=== PATIENT | male | born 1980 | race Caucasian/White ===

== ENCOUNTER 2020-11-28 10:39 | Emergency (ER) | payer OTHER, SELFPAY ==
[2020-11-28 10:43] VITALS: BP 146/72; PULSE 82; RESP 16; TEMP 37.1; O2SAT 96; BMI 31.1
--- NOTE | 2020-11-28 11:23 | ED_ITS ---
HPI - Wound/Laceration General Chief Complaint: Wound/Laceration Stated Complaint: leg wound Time Seen by Provider: 11/28/20 11:02 Source: patient Mode of arrival: ambulatory Limitations: no limitations History of Present Illness HPI narrative: 40-year-old male with a past medical history of eczema presenting to the ED with complaints of rug burn to left lower leg and toe that happened 1 week ago after he fell down a few steps and has had a wound that has surrounding redness and is tender to the touch he reports he thinks it is infected and needs antibiotics. Denies head injury or loss of consciousness or any other symptoms complaints or concerns at this time. Onset (ago): week(s) (One week ago) Location: other (Left lower leg) Place: home Patient tetanus UTD: Yes Context: accidental Associated symptoms: pain Related Data Previous Rx's Medication Instructions Recorded cephalexin 500 mg PO BID 10 Days #20 cap 11/28/20 doxycycline monohydrate 100 mg PO BID 10 Days #20 cap 11/28/20 Allergies Allergy/AdvReac Type Severity Reaction Status Date / Time caffeine [CAFFEINE] Allergy Severe INTESTINAL Verified 08/21/20 07:17 BLEEDING fish oil [FISH OIL] Allergy Mild RASH Verified 08/21/20 07:17 fish Allergy Unknown Unknown Verified 08/21/20 07:17 fluoxetine Allergy Unknown Unknown Verified 08/21/20 07:17 milk Allergy Unknown Unknown Verified 08/21/20 07:17 peanut [PEANUT] Allergy Unknown UNKNOWN Verified 08/21/20 07:17 Peanut Butter Flavor Allergy Unknown Unknown Verified 08/21/20 07:17 egg [EGGS] AdvReac Unknown STOMACH Unverified 05/31/20 14:56 CRAMPING Stress test dye allergy Allergy Unknown Rash Uncoded 03/08/20 00:00 Review of Systems Review of Systems: Constitutional : No Fever, No Chills, Cardiovascular : No Chest Pain, No SOB Respiratory : No Dyspnea Gastrointestinal : No abdominal pain Musculoskeletal : No Joint Swelling Skin : positive skin laceration/surrounding erythema, No Foreign bodies, No rash Neuro : No Weakness, No Numbness/tingling Psych : No SI/HI/thoughts of self injury Yes all other systems are reviewed and are negative PMFSH Past Medical History Attestation statement: The following information was validated with the patient. Surgical History History of umbilical hernia repair Family History Family History Father Prostate cancer CVD (cardiovascular disease) Hypertension Mother Ovarian cancer Breast cancer Hypertension Maternal Grandmother Cancer Paternal Grandmother Diabetes Paternal Aunt Diabetes Paternal Uncle Diabetes Son Asthma Heart problem Family/Other FH: mental illness Substance abuse Social History Social History Alcohol intake: never Smoked in Last 30 Days: No Use of substances other than those prescribed or required for medical reasons: No Substance Use Type: Marijuana Advance Directives: No Advance Directives Information Provided: No Physical Exam Vital Signs: Vital Signs: Last Vital Signs Temp 98.7 F 11/28/20 10:43 Pulse 82 11/28/20 10:43 Resp 16 11/28/20 10:43 BP 146/72 H 11/28/20 10:43 Pulse Ox 96 11/28/20 10:43 Body Mass Index 31.1 vital signs have been reviewed as normal and appeared to be correct. Blood pressure normal. Heart rate normal. Respiration rate normal. Temperature normal. Oxygen saturation normal. Appearance: Alert. Oriented X3. No acute distress. Head: Normal external exam. Normocephalic. Atraumatic. No Crouch signs noted. No raccoon eyes noted Eyes: PERRLA. EOMI. Conjunctiva and sclera normal. Eyelids normal. ENT: EAC normal. TM's Normal. Pharynx normal. Uvula midline. Moist mucous membranes. No trismus noted. No drooling noted. No muffled voice noted. Neck: Normal inspection. Neck supple. FROM. No adenopathy. Thyroid Normal. No meningeal signs. No neck mass noted. CVS: Normal heart rate and rhythm. Heart sound normal. No murmurs noted. Pulses normal throughout. Respiratory: No respiratory distress. Painless inspiration. Breath sounds normal. No wheezes/rales/rhonchi noted. Chest nontender. No accessory muscle usage noted or decreased air movement noted. Back: Full range of motion noted. Skin: 2 x 2 wound to left lower lateral aspect leg with mild surrounding erythema, tender to palpation and warm to touch consistent with wound with cellulitis infection. No fluctuance/induration/foreign bodies or streaking noted. Otherwise the rest of the Skin is warm and dry. Normal skin color. Normal skin turgor. No rashes noted. Extremities: No lower extremity edema. Extremities exhibit normal range of motion. Extremities nontender. Neuro: Oriented X 3. No motor deficit. No sensory deficit. Reflexes normal. Course Course Course Narrative: 40-year-old male presenting with a wound to his left lower extremity consistent with cellulitis. No abscess noted. No streaking. Nontoxic appearance. I offered the patient x-ray of his left ankle although he refused. Patient up-to-date on tetanus. Will DC home with antibiotics and symptomatic treatment along instructions to return if any new or worsening symptoms to follow up with primary care provider. Patient understands agrees with this plan. MDM - Wound/Laceration Medical Records Attestation: I reviewed the patient's medical records. Discharge Plan Discharge Clinical Impression: Wound cellulitis Patient Disposition: Home, Self-Care Instructions: Cellulitis (ED), Acute Wounds (ED) Prescriptions: New doxycycline monohydrate 100 mg capsule 100 mg PO BID 10 Days Qty: 20 RF: 0 cephalexin 500 mg capsule 500 mg PO BID 10 Days Qty: 20 RF: 0 Referrals: Po,Clau Kennedy MD [Primary Care Provider] - 2 days Print Language: Ukrainian
== END 2020-11-28 11:52 | disposition home or self-care (01) ==
PROVIDERS: Emergency Provider Internal Medicine; PCP Internal Medicine
DX: L03.116 Cellulitis of left lower limb (principal); S89.92XD Unspecified injury of left lower leg, subsequent encounter; W01.0XXD Fall on same level from slipping, tripping and stumbling without subsequent striking against object, subsequent encounter; F12.90 Cannabis use, unspecified, uncomplicated
CPT/HCPCS: 99282; 99284

== ENCOUNTER 2020-12-20 12:27 | Emergency (ER) | payer OTHER, SELFPAY ==
--- NOTE | ~2020-12-20 | US_ITS ---
EXAMINATION: US VENOUS ULTRASOUND WITH DOPPLER LOWER EXTREMITY, LEFT CLINICAL INFORMATION: Swelling COMPARISON: None TECHNIQUE: Ultrasound of the deep veins is performed from the hip to the calf with compression sonography and color and pulse Doppler assessment. Spectral analysis with color-flow imaging is performed. FINDINGS: There is normal venous compression and respiratory variation and augmented flow. The visualized common femoral vein, superficial femoral vein, profunda femoral vein, popliteal vein, and the trifurcation region shows no evidence of deep venous thrombosis. There is no significant popliteal fossa cyst. If the patient's symptoms persist, followup ultrasound in 5 days 7 days might be of value to exclude proximal propagation from a non-visualized calf vein. US/US venous duplex LE LT IMPRESSION: No DVT demonstrated in the left lower extremity.
--- NOTE | ~2020-12-20 | XR_ITS ---
EXAMINATION: XR TIBIA AND FIBULA, LEFT CLINICAL INFORMATION: Soft tissue wound lower leg COMPARISON: Radiographs left knee 10/03/2014 TECHNIQUE: AP x2 and lateral x2 views of the left lower leg are obtained for a total of 4 views. FINDINGS: There is no acute or healing fracture, dislocation, or destructive process. The bony mineralization is normal. There is no periostitis or focal osseous lucency. No gas tracking in the soft tissues. Again, there is a chronic short metallic pin foreign body overlying the proximal anterior lateral leg anterior to the fibular neck. Distally, there is benign-appearing macrolobulated ossification in the inter-osseous region arising from distal lateral aspect tibial shaft. This merges with the distal lateral tibial cortex and may be related to an old osteochondroma or remote inter-osseous injury. There is small corticated ossicle just distal to lateral malleolus. There is mild spurring from the medial and lateral talar neck and mid dorsal talus. Posterior calcaneal spur. There is spurring quadriceps insertion patella. Hoffa's fat pad appears normal. XR/XR tibia fibula LT 2V IMPRESSION: 1. No gas tracking in soft tissues. 2. No acute or healing fracture, dislocation, or destructive process. 3. Benign-appearing wavy ossification distal lateral tibia, possibly related to a benign osteochondroma or remote inter-osseous injury.
[2020-12-20 12:51] VITALS: BP 130/82; PULSE 75; RESP 16; TEMP 36.8; O2SAT 97; BMI 30.5
--- NOTE | 2020-12-20 13:24 | ED.WOUNDLAC ---
HPI - Wound/Laceration General Chief Complaint: Wound/Laceration Stated Complaint: L LEG PAIN Time Seen by Provider: 12/20/20 13:23 History of Present Illness HPI narrative: Patient complains of a small wound to left lower leg which is worsening over past several days, he had recently been treated with antibiotic for cellulitis of that area and the surrounding redness has gotten better but the wound is not improving, he denies any joint pains denies any fever chills Related Data Previous Rx's Medication Instructions Recorded cephalexin 500 mg PO BID 10 Days #20 cap 11/28/20 doxycycline monohydrate 100 mg PO BID 10 Days #20 cap 11/28/20 cephalexin 500 mg PO QID 7 Days #28 tab 12/20/20 doxycycline hyclate 100 mg PO BID 7 Days #14 cap 12/20/20 Allergies Allergy/AdvReac Type Severity Reaction Status Date / Time caffeine [CAFFEINE] Allergy Severe INTESTINAL Verified 12/20/20 12:51 BLEEDING fish oil [FISH OIL] Allergy Mild RASH Verified 12/20/20 12:51 fish Allergy Unknown Unknown Verified 12/20/20 12:51 fluoxetine Allergy Unknown Unknown Verified 12/20/20 12:51 milk Allergy Unknown Unknown Verified 12/20/20 12:51 peanut [PEANUT] Allergy Unknown UNKNOWN Verified 12/20/20 12:51 Peanut Butter Flavor Allergy Unknown Unknown Verified 12/20/20 12:51 Iodinated Contrast Media Allergy Hives Verified 12/20/20 13:08 egg [EGGS] AdvReac Unknown STOMACH Verified 12/20/20 12:51 CRAMPING Stress test dye allergy Allergy Unknown Rash Uncoded 12/20/20 12:51 Review of Systems Review of Systems: Positive for wound and pain to left lower leg Negatives are no fever no chills no dizziness no weakness no joint pain no headache no neck pain no back pain Yes all other systems are reviewed and are negative PMFSH Past Medical History Source: nursing notes reviewed Surgical History History of umbilical hernia repair Family History Family History Father Prostate cancer CVD (cardiovascular disease) Hypertension Mother Ovarian cancer Breast cancer Hypertension Maternal Grandmother Cancer Paternal Grandmother Diabetes Paternal Aunt Diabetes Paternal Uncle Diabetes Son Asthma Heart problem Family/Other FH: mental illness Substance abuse Social History Social History Alcohol intake: never Substance Use Type: Marijuana Advance Directives: No Advance Directives Information Provided: No Physical Exam Vital Signs: Vital Signs: Last Vital Signs Temp 98.2 F 12/20/20 12:51 Pulse 75 12/20/20 12:51 Resp 16 12/20/20 12:51 BP 130/82 12/20/20 12:51 Pulse Ox 97 12/20/20 12:51 Body Mass Index 30.5 General appearance no acute distress, comfortable relaxed and cooperative Head is normocephalic atraumatic Neck is supple Respiratory no distress Left lower leg lateral aspect has a wound that is approximately 2 cm x 2 cm with minimal surrounding erythema it is tender it is not swollen Left ankle and left knee have full range of motion no swelling, gait is normal Skin no other rash Neuro no focal deficit Course Course Course Narrative: Patient is restarted on antibiotics and is given referral to wound clinic which I called and they said they could see him MDM - Wound/Laceration Lab Data Labs: Lab Results 12/20/20 Range/Units 13:31 POC Glucose 146 H (60-115) mg/dL Discharge Plan Discharge Clinical Impression: Cellulitis Patient Disposition: Home, Self-Care Additional Instructions: Follow with Wound Clinic for the wound on her left leg phone number [phone] Return to the ER any time for spreading redness, worse pain and swelling, fever, any sign of any spreading or worsening infection or any concerns If not improving and you cannot follow-up with Wound Clinic return to the ER in 3 days for a recheck Prescriptions: New doxycycline hyclate 100 mg capsule 100 mg PO BID 7 Days Qty: 14 RF: 0 cephalexin 500 mg tablet 500 mg PO QID 7 Days Qty: 28 RF: 0 No Action doxycycline monohydrate 100 mg capsule 100 mg PO BID 10 Days Qty: 20 RF: 0 cephalexin 500 mg capsule 500 mg PO BID 10 Days Qty: 20 RF: 0 Referrals: Yisel Canas PA [Physician Dialysis Chief Equipment Technician] - 2 days (Left lower leg wound) Interventions: ED Discharge Assessment Last Done: 12/20/20 15:47 Discharge Date/Time: 12/20/20 15:48
[2020-12-20 13:35] LABS: Glucose, Whole Blood 146 mg/dL (60-115)
[2020-12-20] MEDS: cephALEXin 500 MG CAPSULE PO (13:40)
== END 2020-12-20 15:48 | disposition home or self-care (01) ==
PROVIDERS: Emergency Provider Emergency Medicine; PCP Internal Medicine
DX: L03.116 Cellulitis of left lower limb (principal); M79.605 Pain in left leg; F12.90 Cannabis use, unspecified, uncomplicated
CPT/HCPCS: 73590; 82947; 93971; 99283

== ENCOUNTER 2022-06-02 09:51 | Outpatient (REF) | payer OTHER, SELFPAY ==
[2022-06-02 10:18] LABS: MANUAL DIFF FLAG NO
[2022-06-02 10:58] LABS: Basophils Absolute Auto 0.1 X10*3/uL (0.0-0.2); Basophils Percent Auto 0.9 % (0-2); Eosinophils Absolute Auto 0.6 X10*3/uL (0.0-0.4); Eosinophils Percent Auto 7.7 % (0-4); Hematocrit 41.5 % (42.0-52.0); Hemoglobin 13.4 g/dl (14.0-18.0); Imm Gran Abs Auto 0.03 X10*3/uL (0.00-0.03); Imm Gran Pct Auto 0.4 % (0.0-0.4); Immature Retic Fraction 17.8 % (2.3-13.4); Lymphocytes Absolute Auto 2.4 X10*3/uL (1.2-4.9); Mean Corpuscular HGB Conc 32.3 g/dl (31.0-36.0); Mean Corpuscular Hemoglobin 26.6 pg (27.0-33.0); Mean Corpuscular Volume 82.5 fL (80.0-98.0); Mean Platelet Volume 9.9 fL (9.4-12.4); Monocytes Absolute Auto 0.7 X10*3/uL (0.1-1.2); Monocytes Percent Auto 8.8 % (2-11); Neutrophils Absolute Auto 3.9 x10*3/uL (2.0-8.3); Neutrophils Percent Auto 51.2 % (45-73); Platelet Count 303 X10*3/uL (160-400); Red Blood Count 5.03 X10*6/uL (4.60-5.80); Red Cell Distribution Width 15.6 % (11.0-16.0); Retic HGB Equivalent 30.9 pg (30.0-35.0); Reticulocyte Percent 1.3 % (0.5-1.8); Reticulocytes Absolute 0.063 X10*6/uL (0.026-0.095); White Blood Count 7.6 X10*3/uL (4.8-10.8)
[2022-06-02 11:43] LABS: Alanine Aminotransferase 32 U/L (0-40); Albumin Level 4.2 g/dL (3.5-5.0); Alkaline Phosphatase 69 U/L (39-117); Anion Gap 15 (12-20); Aspartate Amino Transferase 16 U/L (5-37); Bilirubin Total 0.2 mg/dL (0.0-1.0); Blood Urea Nitrogen 13 mg/dL (9-16); Calcium 9.2 mg/dL (8.4-10.2); Carbon Dioxide 22 mmol/L (22-29); Chloride 106 mmol/L (96-108); Cholesterol 128 mg/dL; Estimated Glomerular Filt Rate > 60; Glucose Random 106 mg/dL (60-115); HDL Cholesterol 30 mg/dL; Iron 42 mcg/dL (45-160); LDL Cholesterol Calculated 79 mg/dl; Percent Iron Saturation 13 % (15-50); Potassium 4.3 mmol/L (3.3-5.1); Sodium 139 mmol/L (135-145); Total Iron Binding Capacity 335 mcg/dL (228-428); Total Protein 7.1 g/dL (6.5-8.0); Triglycerides 96 mg/dL; Unsaturated Iron Binding 293 ug/dL
[2022-06-02 11:46] LABS: Estimated Average Glucose 123 mg/dL; Hemoglobin A1c % 5.9 %
[2022-06-02 11:47] LABS: Ferritin 195 ng/mL (20-250); Free T4 (Free Thyroxine) 1.01 ng/dL (0.71-1.85); Thyroid Stimulating Hormone 0.89 uIU/mL (0.32-4.0)
[2022-06-02 11:59] LABS: Folate 8.2 ng/mL (> or = 4.0); Vitamin B12 282 pg/mL (200-900)
[2022-06-02 14:44] LABS: Appearance Urine Clear; Color Urine Yellow; Glucose Urine UA Negative (Negative); Leukocyte Esterase Urine Negative (Negative); Nitrite Urine Negative (Negative); Specific Gravity - Urine 1.015 (1.005-1.025); Urine Blood Negative (Negative); Urine Ketones Negative (Negative); Urine Protein Negative (Neg-Trace)
[2022-06-02 14:46] LABS: Bacteria Urine None Seen (None Seen); Hyaline Casts Urine 0-2 /LPF (0-2); RBC Urine 0-2 /HPF (0-2); Squamous Epithelial Cell Urine 0-2 /HPF (0-2); WBC Urine 0-5 /HPF (0-5)
[2022-06-07 10:53] LABS: Testosterone, Free 46.7 pg/mL (35.0-155.0); Testosterone, Total 270 ng/dL (250-1100)
== END 2022-06-02 09:52 | disposition home or self-care (01) ==
LOC: HO.LAB 09:51
PROVIDERS: PCP Internal Medicine; Visit Provider Internal Medicine
DX: D64.9 Anemia, unspecified (principal); E66.9 Obesity, unspecified; E78.00 Pure hypercholesterolemia, unspecified; R35.0 Frequency of micturition
CPT/HCPCS: 36415; 80053; 80061; 81001; 82607; 82728; 82746; 83036; 83540; 84146; 84402; 84403; 84439; 84443; 85025; 85045

== ENCOUNTER 2022-07-02 08:56 | Emergency (ER) | payer OTHER, SELFPAY ==
--- NOTE | ~2022-07-02 | CT_ITS ---
EXAMINATION: CT ABDOMEN AND PELVIS WITHOUT CONTRAST CLINICAL INFORMATION: Right flank and lower back pain. COMPARISON: CT scan of the abdomen and pelvis dated 06/27/2010. TECHNIQUE: Multidetector volumetric imaging was performed from the superior aspect of the liver through the pubic symphysis. Sagittal and coronal reformatted images were obtained on the technologist's workstation. Lack of intravenous and oral contrast limits visceral evaluation. This CT examination was performed using dose optimization techniques as appropriate, variously including the following: *Automated exposure control *Adjustment of mA and/or kV according to patient size (this includes techniques or standardized protocols for targeted exams where dose is matched to indication/reason for exam; i.e. extremities or head) *Use of iterative reconstruction technique DLP: 946 mGy-cm FINDINGS: LUNG BASES: The visualized lung bases are unremarkable. LIVER, GALLBLADDER, AND BILIARY TREE: No hepatic abnormality. Small gallstones without surrounding abnormality. PANCREAS: Unremarkable. SPLEEN: Unremarkable. ADRENAL GLANDS: Unremarkable. KIDNEYS AND URETERS: The kidneys are normal in size, shape, and attenuation. No hydronephrosis, hydroureter, or calculi seen. No perinephric stranding. BLADDER: Unremarkable. GASTROINTESTINAL TRACT: The stomach, small bowel and appendix are unremarkable. The colon shows mild scattered diverticulosis without surrounding abnormality. The rectum is unremarkable. ABDOMINAL WALL: Small fat-containing umbilical hernia. LYMPH NODES: No lymphadenopathy. VASCULAR: Unremarkable. PELVIC VISCERA: Unremarkable. OSSEOUS STRUCTURES: Mild to moderate multilevel degenerative changes most pronounced at L4-5 and L5-S1. No acute/suspicious abnormality. CT/CT abdomen pelvis wo IV con IMPRESSION: 1. No acute intra-abdominal/pelvic abnormality. No nephrolithiasis or hydroureteronephrosis. 2. Scattered mild colonic diverticulosis without evidence for acute diverticulitis. 3. Small fat-containing umbilical hernia without associated abnormality. 4. Mild to moderate multilevel degenerative changes in the thoracolumbar spine.
--- NOTE | ~2022-07-02 | US_ITS ---
EXAMINATION: US ABDOMEN LIMITED CLINICAL INFORMATION: Right-sided flank pain, history of gallstones. COMPARISON: CT scan of the abdomen and pelvis performed today, abdominal ultrasound dated 09/05/2013. TECHNIQUE: Real-time imaging of the right upper quadrant abdominal viscera. FINDINGS: PANCREAS: Visualized portions unremarkable. LIVER: Diffuse increased hepatic echotexture with focal fatty sparing adjacent to the gallbladder. GALLBLADDER: Multiple echogenic gallstones are seen. One of the largest measures up to 1.7 cm. No mural thickening or pericholecystic fluid. Color Doppler showed no abnormal vascular flow. COMMON BILE DUCT: Normal in caliber measuring 0.5 cm in diameter. FREE FLUID: None. US/US abdomen limited IMPRESSION: 1. Hepatic steatosis with focal fatty sparing adjacent to the gallbladder. 2. Cholelithiasis without evidence for acute cholecystitis.
[2022-07-02 10:00] VITALS: BP 140/91; PULSE 52; RESP 20; TEMP 36.3; O2SAT 99; BMI 29.7
[2022-07-02 10:21] LABS: MANUAL DIFF FLAG NO
[2022-07-02 10:23] LABS: Basophils Percent Auto 0.6 % (0-2); Eosinophils Absolute Auto 0.5 X10*3/uL (0.0-0.4); Eosinophils Percent Auto 8.8 % (0-4); Hematocrit 45.3 % (42.0-52.0); Hemoglobin 14.3 g/dl (14.0-18.0); Imm Gran Abs Auto 0.01 X10*3/uL (0.00-0.03); Imm Gran Pct Auto 0.2 % (0.0-0.4); Lymphocytes Absolute Auto 1.9 X10*3/uL (1.2-4.9); Lymphocytes Percent Auto 34.3 % (20-40); Mean Corpuscular HGB Conc 31.6 g/dl (31.0-36.0); Mean Corpuscular Volume 82.2 fL (80.0-98.0); Mean Platelet Volume 9.3 fL (9.4-12.4); Monocytes Absolute Auto 0.4 X10*3/uL (0.1-1.2); Monocytes Percent Auto 7.9 % (2-11); Neutrophils Absolute Auto 2.6 x10*3/uL (2.0-8.3); Neutrophils Percent Auto 48.2 % (45-73); Platelet Count 298 X10*3/uL (160-400); Red Blood Count 5.51 X10*6/uL (4.60-5.80); White Blood Count 5.4 X10*3/uL (4.8-10.8)
[2022-07-02 10:38] LABS: Alanine Aminotransferase 20 U/L (0-40); Albumin Level 4.5 g/dL (3.5-5.0); Alkaline Phosphatase 66 U/L (39-117); Anion Gap 16 (12-20); Aspartate Amino Transferase 15 U/L (5-37); Bilirubin Direct < 0.2 mg/dL (0.0-0.5); Bilirubin Total 0.2 mg/dL (0.0-1.0); Blood Urea Nitrogen 13 mg/dL (9-16); Calcium 9.3 mg/dL (8.4-10.2); Carbon Dioxide 24 mmol/L (22-29); Chloride 106 mmol/L (96-108); Creatinine Clr Calc Pharmacy 179.7; Estimated Glomerular Filt Rate > 60; Glucose Random 109 mg/dL (60-115); Potassium 4.8 mmol/L (3.3-5.1); Sodium 141 mmol/L (135-145); Total Protein 7.6 g/dL (6.5-8.0)
[2022-07-02 12:54] LABS: Lipase 21 U/L (8-78)
[2022-07-02 13:44] LABS: Appearance Urine Clear; Color Urine Yellow; Glucose Urine UA Negative (Negative); Leukocyte Esterase Urine Negative (Negative); Nitrite Urine Negative (Negative); PH 7.5 (5.0-9.0); Urine Blood Negative (Negative); Urine Ketones Negative (Negative); Urine Protein Negative (Neg-Trace)
[2022-07-02 13:59] LABS: Amylase 65 U/L (28-100); Lactate Dehydrogenase 195 U/L (118-273)
--- NOTE | 2022-07-02 14:00 | ED_ITS ---
HPI - Back Pain/Injury General Chief Complaint: Abdominal Pain Stated Complaint: gall bladder pain Time Seen by Provider: 07/02/22 13:38 Source: patient Mode of arrival: ambulatory Limitations: no limitations History of Present Illness HPI Narrative: Patient is a 42-year-old male with a past medical history significant for a lower lumbar fracture presenting with severe right-sided back pain. Patient reports that his pain started about 2 months ago, at rest the pain is ?nagging? and a 5/10; when moving/palpating the area the pain is sharp and increases to a 10/10. The pain is radiates laterally. Patient also endorses itchy eyes, nausea and, yellowing of the eyes, polydipsia, polyuria, constipation. The p atient denies any history of trauma, fever, dysuria, abdominal pain, vomiting, saddle anesthesia and loss of bladder or bowel function The patient states that he has been taking baby aspirin for pain as needed. Of note the patient states that he went to his PCP 2 months ago when the pain started. He states that he had a workup for kidney stone, UTI which came back negative. The patient also reports he is had a few episodes of ?palpitations?, his last episode was last week, he denies any palpitations at this time. MD elicited complaint: back pain Pertinent past history: prior back pain and back surgery Onset (ago): month(s) (2) Timing: constant Severity: moderate (At baseline) Pain scale (0-10): 5 Similar Symptoms Previously: No Quality: sharp (When palpating) and dull (At baseline) Location: lumbar spine (Upper), thoracic spine (Lower) and right lower back ( between the ribs ) Radiation: other (Lateral) Exacerbating factors: movement and other (Palpate a) Relieving factors: medication (Aspirin - minimal relief) Associated symptoms: fatigue and increased urinary frequency Treatments prior to arrival: ASA Work related injury: No Related Data Previous Rx's Medication Instructions Recorded ascorbate calcium (vitamin C) 500 500 mg PO DAILY #30 tabs 06/03/22 mg tablet cetirizine 10 mg tablet 10 mg PO DAILY PRN allergy 06/03/22 symptoms 90 days #90 tabs cyanocobalamin (vitamin B-12) 1,000 mcg PO DAILY #30 caps 06/03/22 1,000 mcg capsule ferrous sulfate 325 mg (65 mg 325 mg PO DAILY #30 tabs 06/03/22 iron) tablet (FeroSul) triamcinolone acetonide 0.5 % 1 appl topical DAILY #45 grams 06/03/22 topical cream cyclobenzaprine 10 mg tablet 10 mg PO Q8H Muscle spasm #14 tabs 07/02/22 naproxen 500 mg tablet 500 mg PO BID PRN pain #14 tabs 07/02/22 Allergies Allergy/AdvReac Type Severity Reaction Status Date / Time caffeine [CAFFEINE] Allergy Severe INTESTINAL Verified 07/02/22 10:00 BLEEDING fish oil [FISH OIL] Allergy Mild RASH Verified 07/02/22 10:00 fish Allergy Unknown Unknown Verified 07/02/22 10:00 fluoxetine Allergy Unknown Unknown Verified 07/02/22 10:00 milk Allergy Unknown Unknown Verified 07/02/22 10:00 peanut [PEANUT] Allergy Unknown UNKNOWN Verified 07/02/22 10:00 Peanut Butter Flavor Allergy Unknown Unknown Verified 07/02/22 10:00 Iodinated Contrast Media Allergy Hives Verified 07/02/22 10:00 egg [EGGS] AdvReac Unknown STOMACH Verified 07/02/22 10:00 CRAMPING Stress test dye allergy Allergy Unknown Rash Uncoded 07/02/22 10:00 Review of Systems Review of Systems: Constitutional : No trauma, No Weight loss, No Fever, No Chills, + lethargy ENT/Mouth : No Hearing loss, + Ear Pain, No Nasal Congestion, No Sinus Pain, No Hoarseness, No sore throat, No Rhinorrhea, No Swallowing Difficulty, + ?itchy eyes + yellowing of the eyes Cardiovascular : No Chest Pain, No SOB, + palpitations Respiratory : No Cough, No Dyspnea Gastrointestinal : + Nausea, No Vomiting, No Diarrhea, No abdominal Pain, No Hematochezia, No Melena Genitourinary : No Dysuria, No Urinary Frequency, No Hematuria, No Urinary or Bowel Incontinence/retention, Musculoskeletal : + Back pain, No neck pain, No joint stiffness, No joint swelling Skin : No Skin Lesions, No rash or signs of infection Neuro : No Weakness, + lateral radiation, No Numbness, No Paresthesias, No headache, no loss of bowel or bladder incontinence, no saddle anesthesia Endocrine: + polyuria, + polydipsia Denies history of IV drug usage. Yes all other systems are reviewed and are negative [facility] Past Medical History Attestation statement: The following information was validated with the patient. Source: old records reviewed and nursing notes reviewed Medical History Allergic rhinitis Chronic low back pain Generalized anxiety disorder Surgical History History of umbilical hernia repair Family History Family History Father Prostate cancer CVD (cardiovascular disease) Hypertension Mother Ovarian cancer Breast cancer Hypertension Maternal Grandmother Cancer Vulvar cancer Paternal Grandmother Diabetes Paternal Aunt Diabetes Paternal Uncle Diabetes Son Asthma Heart problem Family/Other FH: mental illness Substance abuse Social History Social History Housing: Apartment Alcohol intake: current Patient Tobacco Use Status: Never used Tobacco e-Cigarette/Vaping Use: Never Used Second Hand Smoke Exposure: No Substance Use Type: Marijuana Advance Directives: No Current occupational status: employed Cognitive needs: No Hearing needs: No Vision needs: Yes Physical Exam Vital Signs: Vital Signs: Last Vital Signs Temp 97.3 F 07/02/22 10:00 Pulse 52 07/02/22 10:00 Resp 20 07/02/22 10:00 BP 140/91 H 07/02/22 10:00 Pulse Ox 99 07/02/22 10:00 O2 Del Method 07/02/22 10:00 BMI result Body Mass Index 29.7 vital signs have been reviewed as normal and appeared to be correct. Blood pressure hypertensive. Heart rate normal. Respiration rate normal. Temperature normal. Oxygen saturation normal. Appearance: Alert. Oriented X3. No acute distress. Head: Normal external exam. Normocephalic. Atraumatic. Eyes: PERRLA. EOMI. Conjunctiva and sclera slightly yellow-tinged. Eyelids normal. ENT: EAC normal. TM's Normal. Pharynx normal. Uvula midline. Moist mucous membranes. No trismus noted. No drooling noted. No muffled voice noted. Neck: Normal inspection. Neck supple. FROM. No adenopathy. No meningeal signs. No neck mass noted. CVS: Normal heart rate and rhythm. Heart sound normal. No murmurs noted. Pulses normal throughout. Respiratory: No respiratory distress. Painless inspiration. Breath sounds normal. No wheezes/rales/rhonchi noted. Chest nontender. No accessory muscle usage noted or decreased air movement noted. Abdomen: Soft and nontender. No distention noted. No visible injury noted. Umbilical hernia noted, able to manipulate back into abdomen. Back: No CVA tenderness. Full range of motion noted. No obvious deformities, or edema. Mild para-spinal muscular tenderness from lumbar region to coccyx. Severe pain to palpation of right stairs spinous muscles from approximately T10 to L2. Full ROM in back and lower extremities. 5/5 strength hip extension/flexion, abduction, adduction. Mild Lumbar pain with hip flexion against resistance. Straight leg raise test negative on right; Straight leg raise test negative on left; Reflexes normal ankle and knee bilaterally; EHL motor strength normal bilaterally. No rashes/lesion/induration/fluctuance or signs infection noted. Skin: Skin warm and dry. Normal skin color. Normal skin turgor. No rashes/lesions/lacerations noted. Extremities: No lower extremity edema. Extremities exhibit normal range of motion. Extremities nontender. Neuro: Oriented X 3. No motor deficit. No sensory deficit. Reflexes normal. Patient has a normal steady gait. Course Course Course Narrative: 2pm - patient is a 42-year-old male with a past medical history lower lumbar fracture status post surgery presenting for severe mid back pain. Physical exam significant for severe point tenderness at of right paraspinous muscles around T12 to L2, pain radiates laterally, slight tint/yellowing of eyes bilaterally. No red flag black pain. Patient is hypertensive on exam. This is likely due to pain. Pain is likely due to a soft tissue injury. CT of abdomen ordered to rule out fracture. Ultrasound ordered to rule out cholangitis, choledocholithiasis, cholecystitis. TSH ordered to rule out thyroid disorders. 12 lead EKG used to rule out a-fib for complaint of palpitations. Plan: - Labs: CBC, CMP, UA, TSH, magnesium, amylase, lipase, lactate dehydrogenase, liver panel - ultrasound of abdomen - CT of abdomen without IV contrast - 12 lead EKG Reevaluation(s) Reevaluation #1: Labs: CBC: MCH (26.0); MPV (9.3), Eos % (8.8); Eos # (0.5). All other lab values are within normal limits Chem: All lab values within normal limits TSH: 0.53 Lipate: 21; Amylase 65 - these lab values are within normal limits; unlikely pancreatic issue UA: All values are within normal limits Diagnostic tests: EKG: Sinus bradycardia CT Abdomen/ Pelvis: Mild to moderate multilevel degenerative changes in the thoracolumbar spine. Time: 15:14 MDM - Back Pain/Injury Medical Records Attestation: I reviewed the patient's medical records. Lab Data Attestation: I reviewed the patient's lab results. Result diagrams: 07/02/22 10:16 07/02/22 10:16 Labs: Lab Results 07/02/22 07/02/22 07/02/22 Range/Units 10:16 10:16 13:29 WBC 5.4 (4.8-10.8) X10*3/uL RBC 5.51 (4.60-5.80) X10*6/uL Hgb 14.3 (14.0-18.0) g/dl Hct 45.3 (42.0-52.0) % MCV 82.2 (80.0-98.0) fL MCH 26.0 L (27.0-33.0) pg MCHC 31.6 (31.0-36.0) g/dl RDW 15.0 (11.0-16.0) % Plt Count 298 (160-400) X10*3/uL MPV 9.3 L (9.4-12.4) fL Immature Gran % (Auto) 0.2 (0.0-0.4) % Neut % (Auto) 48.2 (45-73) % Lymph % (Auto) 34.3 (20-40) % [place] % (Auto) 7.9 (2-11) % Eos % (Auto) 8.8 H (0-4) % Baso % (Auto) 0.6 (0-2) % Lymph # (Auto) 1.9 (1.2-4.9) X10*3/uL [place] # (Auto) 0.4 (0.1-1.2) X10*3/uL Eos # (Auto) 0.5 H (0.0-0.4) X10*3/uL Baso # (Auto) 0.0 (0.0-0.2) X10*3/uL Abs Immat Gran (auto) 0.01 (0.00-0.03) X10*3/uL Absolute Neuts (auto) 2.6 (2.0-8.3) x10*3/uL Absolute Nucleated RBC 0.000 (0.0-0.012) X10*3/uL Nucleated RBC % (auto) 0.0 (0.0-0.2) /100WBC Sodium 141 (135-145) mmol/L Potassium 4.8 (3.3-5.1) mmol/L Chloride 106 (96-108) mmol/L Carbon Dioxide 24 (22-29) mmol/L Anion Gap 16 (12-20) BUN 13 (9-16) mg/dL Creatinine 0.82 (0.5-1.4) mg/dL Estim Creat Clear Calc 179.7 Estimated GFR > 60 Random Glucose 109 (60-115) mg/dL Calcium 9.3 (8.4-10.2) mg/dL Magnesium 2.0 (1.6-2.6) mg/dL Total Bilirubin 0.2 (0.0-1.0) mg/dL Direct Bilirubin < 0.2 (0.0-0.5) mg/dL AST 15 (5-37) U/L ALT 20 (0-40) U/L Alkaline Phosphatase 66 (39-117) U/L Lactate Dehydrogenase 195 (118-273) U/L Total Protein 7.6 (6.5-8.0) g/dL Albumin 4.5 (3.5-5.0) g/dL Amylase 65 (28-100) U/L Lipase 21 (8-78) U/L TSH 0.53 (0.32-4.0) uIU/mL Urine Color Yellow Urine Appearance Clear Urine pH 7.5 (5.0-9.0) Ur Specific [place] 1.020 (1.005-1.025) Urine Protein Negative (Neg-Trace) mg/dL Urine Glucose (UA) Negative (Negative) mg/dL Urine Ketones Negative (Negative) mg/dL Urine Blood Negative (Negative) Urine Nitrite Negative (Negative) Ur Leukocyte Esterase Negative (Negative) Imaging Data Abdomen/ Pelvis CT: Attestation: I personally reviewed and interpreted this imaging study as follows: Radiologist's impression: FINDINGS: LUNG BASES: The visualized lung bases are unremarkable.? LIVER, GALLBLADDER, AND BILIARY TREE: No hepatic abnormality. Small gallstones without surrounding abnormality. PANCREAS: Unremarkable.? SPLEEN: Unremarkable.? ADRENAL GLANDS: Unremarkable.? KIDNEYS AND URETERS: The kidneys are normal in size, shape, and attenuation. No hydronephrosis, hydroureter, or calculi seen. No perinephric stranding. ? BLADDER: Unremarkable.? GASTROINTESTINAL TRACT: The stomach, small bowel and appendix are unremarkable. The colon shows mild scattered diverticulosis without surrounding abnormality. The rectum is unremarkable.? ABDOMINAL WALL: Small fat-containing umbilical hernia.? LYMPH NODES: No lymphadenopathy. VASCULAR: Unremarkable. PELVIC VISCERA: Unremarkable.? OSSEOUS STRUCTURES: Mild to moderate multilevel degenerative changes most pronounced at L4-5 and L5-S1. No acute/suspicious abnormality.? CT/CT abdomen pelvis wo IV con IMPRESSION: 1. No acute intra-abdominal/pelvic abnormality. No nephrolithiasis or hydroureteronephrosis. 2. Scattered mild colonic diverticulosis without evidence for acute diverticulitis. 3. Small fat-containing umbilical hernia without associated abnormality. 4. Mild to moderate multilevel degenerative changes in the thoracolumbar spine. Abdomen Ultrasound: Radiologist's impression: FINDINGS: PANCREAS: Visualized portions unremarkable. LIVER: Diffuse increased hepatic echotexture with focal fatty sparing adjacent to the gallbladder. GALLBLADDER: Multiple echogenic gallstones are seen. One of the largest measures up to 1.7 cm. No mural thickening or pericholecystic fluid. Color Doppler showed no abnormal vascular flow. COMMON BILE DUCT: Normal in caliber measuring 0.5 cm in diameter. FREE FLUID: None. US/US abdomen limited IMPRESSION: 1.? Hepatic steatosis with focal fatty sparing adjacent to the gallbladder. 2.? Cholelithiasis without evidence for acute cholecystitis. ECG Data Attestation: I personally reviewed and interpreted this ECG as follows: ECG interpretation date: 07/02/22 ECG interpretation time: 14:33 Prior ECG tracings: not available for review Interpretation: Sinus Bradycardia; no ST elevation or depression Ventricular rate: 58 bpm Discharge Plan Discharge Clinical Impression: Soft tissue injury of back, Gallstones Patient Disposition: Home, Self-Care Instructions: Back Pain (ED) Additional Instructions: You were seen in the ED for mid back pain. The pain is likely musculoskeletal/arthritis the spine. You can use heat/ ice as needed for pain. Start to use ibuprofen ever 6 hours as needed and Tylenol very 4 hours as needed for pain. Use a back brace when standing for long periods of time. Testing performed: -A CT of the abdomen/pelvis were performed. This showed arthritis of the mid back, and a small umbilical hernia. Diverticulosis was noted, though there is no signs of infection (diverticulitis), the scan showed no signs of no kidney stones or renal issues. -Lab work was performed and showed the pain is unlikely a liver injury/disease, thyroid issue, pancreatic issues. -An Ultrasound of your abdomen was performed and ruled out a gallbladder issue. -An EKG showed no signs of infarction or A-fib. You may need further workup for your palpation symptoms, even though this EKG showed no signs of Atrial Fibrillation this does not mean it can be ruled out. You should follow up with your PCP for further evaluation/ monitoring of your umbilical hernia and diverticulosis. If the pain continues or worsens you should get further workup from an orthopedics. If your symptoms worsen or you develop new or worsening symtoms please return to the ED or call 911. Prescriptions: New naproxen 500 mg tablet 500 mg PO BID PRN (Reason: pain) Qty: 14 0RF cyclobenzaprine 10 mg tablet 10 mg PO Q8H Qty: 14 0RF No Action cyanocobalamin (vitamin B-12) 1,000 mcg capsule 1,000 mcg PO DAILY Qty: 30 3RF ferrous sulfate [FeroSul] 325 mg (65 mg iron) tablet 325 mg PO DAILY Qty: 30 3RF ascorbate calcium (vitamin C) 500 mg tablet 500 mg PO DAILY Qty: 30 3RF triamcinolone acetonide 0.5 % cream 1 appl topical DAILY Qty: 45 1RF cetirizine 10 mg tablet 10 mg PO DAILY PRN (Reason: allergy symptoms) 90 Days Qty: 90 3RF Referrals: [facility] [place] Orthopedic Surgeons [Provider Group] [facility] [Provider Group] Torsten Leone MD [Physician] - (For outpatient referral for your gallstones) Stand Alone Forms: Work/School Release Interventions: ED Discharge Assessment Last Done: 07/02/22 16:15 Discharge Date/Time: 07/02/22 16:16
--- NOTE | 2022-07-02 14:03 | ECG_ITS ---
Test Reason : palpitations Blood Pressure : / mmHG Vent. Rate : 058 BPM Atrial Rate : 058 BPM P-R Int : 168 ms QRS Dur : 088 ms QT Int : 416 ms P-R-T Axes : 045 000 024 degrees QTc Int : 408 ms Sinus bradycardia Low voltage QRS Borderline ECG When compared with ECG of 27-MAY-2019 04:44, No significant change was found Referred By: Denise Chinchilla Electronically Signed By:DARY TRINIDAD MD
--- OUTSIDE RECORDS SUMMARY | 2022-07-02 14:27 | XMS_ITS | Continuity of Care Document ---
:1980 Author Organization [facility] Address [address] [place] [address]- Care Team Providers Name Role Phone Po Clau CESAR Primary Care Physician Encounter [facility] [place] Date(s): 02/26/20 - 02/26/[address] [address]- [facility] Encounter Diagnosis Allergic reaction (Final) - 02/26/20 Discharge Disposition: A-D/C Home Attending Physician: Kirby Chinchilla MD Admitting Physician: Kirby Chinchilla MD Referring Physician: Not on Staff, Referring MD Allergies, Adverse Reactions, Alerts Substance Reaction Severity Status Contrast Dye Active Medications cetirizine 10 mg oral capsule 1 capsule = 10 mg, By Mouth, Daily, PRN for allergy symptoms, # 40 capsule, 0 Refills, Maintenance, 02/26/20 14:27:00 EDT, Capsule, [id number] Start Date: 02/26/20 Status: OrderedEPINEPHrine 0.3 mg injectable solution = 0.3 mg, Intramuscular, Once, PRN Anaphylactic Reaction, # 2 kit, 0 Refills, Soft Stop, 02/26/20 14:27:00 EDT, [id number] Start Date: 02/26/20 Status: OrderedpredniSONE 20 mg oral tablet 3 tablet = 60 mg, By Mouth, Daily, for 7 days, # 21 tablet, 0 Refills, Acute 03/04/20 9:44:00 EDT, 02/26/20 9:44:00 EDT, Tablet, [id number] Start Date: 02/26/20 Stop Date: 03/04/20 Status: Ordered Vital Signs Most recent to oldest [Reference Range]: 1 2 Oxygen Saturation [94-100 %] 100 % 100 % (02/26/20 10:04 AM) (02/26/20 8:48 AM) Pulse Rate [55-90 bpm] 72 bpm 78 bpm (02/26/20 10:04 AM) (02/26/20 8:48 AM) Blood Pressure [90-138/55-84 mm Hg] 128/88 mm Hg 135/ 90 mm Hg (02/26/20 10:04 AM) (02/26/20 8:48 AM) Respiratory Rate [16-30 br/min] 20 br/min 20 br/mi n (02/26/20 10:04 AM) (02/26/20 8:48 AM) Temperature [96.8-100.4 DegF] 98.2 DegF 98.1 DegF (02/26/20 10:04 AM) (02/26/20 8:48 AM) Mode of Delivery (Oxygen) Room air Room air (02/26/20 10:04 AM) (02/26/20 8:48 AM) Temperature Route Oral Oral (02/26/20 10:04 AM) (02/26/20 8:48 AM)
[2022-07-02 14:56] LABS: TSH reflex Free T4 0.53 uIU/mL (0.32-4.0)
== END 2022-07-02 16:16 | disposition home or self-care (01) ==
PROVIDERS: Physician Assistant Medical; Student in an Organized Health Care Education/Training Program; Emergency Provider Emergency Medicine Emergency Medical Services; PCP Internal Medicine
DX: M79.89 Other specified soft tissue disorders (principal); K80.20 Calculus of gallbladder without cholecystitis without obstruction; M54.89 Other dorsalgia
CPT/HCPCS: 36415; 74176; 76705; 80053; 81003; 82150; 82248; 83615; 83690; 83735; 84443; 85025; 93005; 99283; 99284

== ENCOUNTER → 2022-09-10 11:19 | Outpatient (BNVA) | payer OTHER, SELFPAY | PROVIDERS: PCP Internal Medicine; Visit Provider Surgery | DX: K80.20 Calculus of gallbladder without cholecystitis without obstruction (principal); E61.1 Iron deficiency; E53.8 Deficiency of other specified B group vitamins; R73.02 Impaired glucose tolerance (oral); E66.9 Obesity, unspecified; Z68.30 Body mass index [BMI] 30.0-30.9, adult; G89.29 Other chronic pain; M54.50 Low back pain, unspecified; F41.1 Generalized anxiety disorder | CPT/HCPCS: 99202 ==

== ENCOUNTER 2022-10-22 15:17 | Emergency (ER) | payer OTHER, SELFPAY ==
--- NOTE | ~2022-10-22 | XR_ITS ---
EXAMINATION: XR CHEST CLINICAL INFORMATION: Chest pain, shortness of breath. COMPARISON: 05/27/2019 chest radiograph. TECHNIQUE: 2 views of the chest were obtained. FINDINGS: No significant abnormality is noted involving the heart, lungs, mediastinum, bony thorax or soft tissues. XR/XR chest 2V IMPRESSION: No acute cardiopulmonary process.
--- NOTE | 2022-10-22 15:21 | ED.CHESTPAIN ---
HPI - Chest Pain General Chief Complaint: General Medical <REG Pierre Last Filed: 10/22/22 15:31> Stated Complaint: heart racing, chest tightness, sob <Layla Bryson NP - Last Filed: 10/22/22 15:31> Time Seen by Provider: 10/22/22 19:49 <Layla Bryson NP - Last Filed: 10/22/22 15:31> Source: patient <REG Bazan Last Filed: 10/23/22 01:59> Mode of arrival: ambulatory <REG Bazan Last Filed: 10/23/22 01:59> Limitations: no limitations <REG Bazan Last Filed: 10/23/22 01:59> History of Present Illness HPI narrative: 42-year-old male presents with shortness of breath, palpitations and chest tightness while riding his bicycle. Patient states that his bicycle ride was in strenuous, he usually has more endurance. States that he had to get off his bike and walk because of the shortness of breath and palpitations. He does have anxiety per baseline but feels that this episode of chest discomfort and palpitations was much different than anxiety. Does not report fevers or chills, denies weakness, diaphoresis, lightheadedness, nausea and vomiting. <REG Bazan Last Filed: 10/23/22 01:59> MD complaint: chest discomfort <REG Bazan Last Filed: 10/23/22 01:59> Onset (ago): hour(s) (Within the hour of arrival) <REG Bazan Last Filed: 10/23/22 01:59> Timing of current episode: episodic and now resolved <REG Bazan Last Filed: 10/23/22 01:59> Prior episodes: Yes <REG Bazan Last Filed: 10/23/22 01:59> Onset: during exertion <REG Bazan Last Filed: 10/23/22 01:59> Pain location: substernal <REG Bazan Last Filed: 10/23/22 01:59> Pain radiation: none <Maile Jones NP - Last Filed: 10/23/22 01:59> Severity: mild <Maile Jones NP - Last Filed: 10/23/22 01:59> Quality: tightness <Maile Jones NP - Last Filed: 10/23/22 01:59> Relieving factors: rest <Maile Jones NP - Last Filed: 10/23/22 01:59> Exacerbating factors: exertion <Maile Jones NP - Last Filed: 10/23/22 01:59> Associated symptoms: palpitations <Maile Jones NP - Last Filed: 10/23/22 01:59> Treatment prior to arrival: none <Maile Jones NP - Last Filed: 10/23/22 01:59> Risk Factors Coronary artery disease risk factors: none <Maile Jones NP - Last Filed: 10/23/22 01:59> Thoracic aortic dissection risk factors: none <Maile Jones NP - Last Filed: 10/23/22 01:59> Related Data Home Medications: Previous Rx's Medication Instructions Recorded ascorbate calcium (vitamin C) 500 500 mg PO DAILY #30 tabs 06/03/22 mg tablet cetirizine 10 mg tablet 10 mg PO DAILY PRN allergy 06/03/22 symptoms 90 days #90 tabs cyanocobalamin (vitamin B-12) 1,000 mcg PO DAILY #30 caps 06/03/22 1,000 mcg capsule ferrous sulfate 325 mg (65 mg 325 mg PO DAILY #30 tabs 06/03/22 iron) tablet (FeroSul) cyclobenzaprine 10 mg tablet 10 mg PO Q8H Muscle spasm #14 tabs 07/02/22 naproxen 500 mg tablet 500 mg PO BID PRN pain #14 tabs 07/02/22 triamcinolone acetonide 0.5 % 1 appl topical DAILY #45 grams 10/10/22 topical cream <Layla Bryson RUBBER OFF - Last Filed: 10/22/22 15:31> Allergies/Adverse Reactions: Allergies Allergy/AdvReac Type Severity Reaction Status Date / Time caffeine [CAFFEINE] Allergy Severe INTESTINAL Verified 09/10/22 11:21 BLEEDING fish oil [FISH OIL] Allergy Mild RASH Verified 09/10/22 11:21 fish derived [fish] Allergy Unknown Unknown Verified 10/16/22 14:08 fluoxetine Allergy Unknown Unknown Verified 09/10/22 11:21 milk Allergy Unknown Unknown Verified 10/16/22 14:08 peanut [PEANUT] Allergy Unknown UNKNOWN Verified 09/10/22 11:21 Peanut Butter Flavor Allergy Unknown Unknown Verified 09/10/22 11:21 Iodinated Contrast Media Allergy Hives Verified 09/10/22 11:21 egg [EGGS] AdvReac Unknown STOMACH Verified 09/10/22 11:21 CRAMPING Stress test dye allergy Allergy Unknown Rash Uncoded 07/02/22 10:00 <Layla Bryson NP - Last Filed: 10/22/22 15:31> Review of Systems Review of Systems: Constitutional: No Fever, No Chills Cardiovascular: Positive chest tightness, No Chest Pain, positive result palpitations and SOB Respiratory: No Cough, No Dyspnea Gastrointestinal: No Nausea, No Vomiting, No Diarrhea, No abdominal Pain Genitourinary: No Dysuria, No Hematuria Musculoskeletal: No joint pain, No Myalgias, No Joint Swelling Skin: No Skin lacerations, No rash Neuro: No Weakness, No Numbness, No Paresthesias, No Dizziness, No Headache Psych: No Anxiety/Panic, No Depression <Maile Jones NP - Last Filed: 10/23/22 01:59> Yes all other systems are reviewed and are negative <Maile Jones NP - Last Filed: 10/23/22 01:59> PMFSH Past Medical History Attestation statement: The following information was validated with the patient. <Maile Jones NP - Last Filed: 10/23/22 01:59> Source: old records reviewed <Maile Jones NP - Last Filed: 10/23/22 01:59> Medical History: Medical History Allergic rhinitis Chronic low back pain Generalized anxiety disorder <Layla Bryson NP - Last Filed: 10/22/22 15:31> Surgical History: Surgical History History of umbilical hernia repair <Layla Bryson NP - Last Filed: 10/22/22 15:31> Family History Family History: Family History Father Prostate cancer CVD (cardiovascular disease) Hypertension Mother Ovarian cancer Breast cancer Hypertension Maternal Grandmother Cancer Vulvar cancer Paternal Grandmother Diabetes Paternal Aunt Diabetes Paternal Uncle Diabetes Son Asthma Heart problem Family/Other FH: mental illness Substance abuse <Layla Bryson NP - Last Filed: 10/22/22 15:31> Social History Social History: Social History Housing: Apartment Alcohol intake: never Patient Tobacco Use Status: Never used Tobacco Smoked in Last 30 Days: No e-Cigarette/Vaping Use: Never Used Second Hand Smoke Exposure: No Use of substances other than those prescribed or required for medical reasons: No Substance Use Type: Marijuana Advance Directives: No Advance Directives Information Provided: No Current occupational status: employed Cognitive needs: No Hearing needs: No Vision needs: Yes <Layla Bryson NP - Last Filed: 10/22/22 15:31> Physical Exam Vital Signs: Vital Signs: Last Vital Signs Temp 98 F 10/22/22 15:24 Pulse 71 10/22/22 19:54 Resp 20 10/22/22 19:54 BP 155/77 H 10/22/22 19:54 Pulse Ox 98 10/22/22 19:54 O2 Del Method 10/22/22 19:54 BMI result Body Mass Index 28.9 <Layla Bryson NP - Last Filed: 10/22/22 15:31> Vital Signs: Last Vital Signs Temp 98 F 10/22/22 15:24 Pulse 71 10/22/22 19:54 Resp 20 10/22/22 19:54 BP 155/77 H 10/22/22 19:54 Pulse Ox 98 10/22/22 19:54 O2 Del Method 10/22/22 19:54 BMI result Body Mass Index 28.9 <Maile Jones NP - Last Filed: 10/23/22 01:59> Appearance: Alert. Oriented X3. No acute distress. Eyes: Pupils equal, round and reactive to light. Neck: Normal inspection. Neck supple. CVS: Normal heart rate and rhythm. Pulses normal. Respiratory: No respiratory distress. Breath sounds normal. Skin: Skin warm and dry. Normal skin color. Normal skin turgor. Extremities: No lower extremity edema. Gait well-balanced well coordinated. Neuro: No motor deficit. No sensory deficit. Cranial nerves 2-12 intact. <Maile Jones NP - Last Filed: 10/23/22 01:59> Course Course Course Narrative: This is a rapid medical exam. deferred additional HPI, ROS, PE to primary provider. 42 yo male with history of anxiety/panic attacks, pre-diabetes here with complaints of heart racing, chest heaviness x 45 minutes. Began while riding his bike. Will obtain EKG, labs, CXR, covid. VSS <Layla Bryson NP - Last Filed: 10/22/22 15:31> This is a rapid medical exam. deferred additional HPI, ROS, PE to primary provider. 42 yo male with history of anxiety/panic attacks, pre-diabetes here with complaints of heart racing, chest heaviness x 45 minutes. Began while riding his bike. Will obtain EKG, labs, CXR, covid. VSS 20:06 42-year-old male presents for evaluation for chest tightness, shortness of breath, and palpitations while on a leisurely bike ride. Patient does have a history of anxiety, and has had intermittent palpitations in the past but states that this felt much different than priors. Labs were drawn while patient was in the emergency department waiting room, negative for acute findings requiring emergent intervention. Troponins are 0. EKG is normal sinus. COVID test is negative. Patient is agitated that he had to wait for long period of time to see a provider, states that he wants to go home. He does not want repeat labs, states that he does not want to see a housekeeper cleaning cooking because he does not believe in traditional medicine and anything that requires an Internet connection. Patient also states that he does not want to have a threat monitoring analyst because he does not like sticky things on his chest and that the adhesive irritates his skin. I strongly recommended that this patient follow up with his primary care physician for Holter monitoring, and he did verbalize understanding of the importance of this test. Patient is afebrile, nontoxic, vital signs are within normal limits, with a negative chest x-ray. Low likelihood of ACS at this time. I feel that the patient's reluctance to follow medical advice is his major obstacle. <Maile Jones NP - Last Filed: 10/23/22 01:59> Medical Decision Making Differential Diagnosis Differential Diagnoses: The differential diagnosis associated with the presentation includes <Maile Jones NP - Last Filed: 10/23/22 01:59> ACS, COVID, RSV, anxiety <Maile Jones NP - Last Filed: 10/23/22 01:59> Lab Data MDM Lab Attestation statement: I reviewed the patient's lab results. <Maile Jones NP - Last Filed: 10/23/22 01:59> Result Diagrams: 10/22/22 16:03 10/22/22 16:03 <Layla Bryson RUBBER OFF - Last Filed: 10/22/22 15:31> Labs: Lab Results 10/22/22 10/22/22 10/22/22 Range/Units 16:03 16:03 16:03 WBC 7.4 (4.8-10.8) X10*3/uL RBC 5.69 (4.60-5.80) X10*6/uL Hgb 14.8 (14.0-18.0) g/dl Hct 46.0 (42.0-52.0) % MCV 80.8 (80.0-98.0) fL MCH 26.0 L (27.0-33.0) pg MCHC 32.2 (31.0-36.0) g/dl RDW 14.7 (11.0-16.0) % Plt Count 349 (160-400) X10*3/uL MPV 9.2 L (9.4-12.4) fL Immature Gran % (Auto) 0.3 (0.0-0.4) % Neut % (Auto) 60.6 (45-73) % Lymph % (Auto) 26.3 (20-40) % [place] % (Auto) 8.0 (2-11) % Eos % (Auto) 3.9 (0-4) % Baso % (Auto) 0.9 (0-2) % Lymph # (Auto) 2.0 (1.2-4.9) X10*3/uL [place] # (Auto) 0.6 (0.1-1.2) X10*3/uL Eos # (Auto) 0.3 (0.0-0.4) X10*3/uL Baso # (Auto) 0.1 (0.0-0.2) X10*3/uL Abs Immat Gran (auto) 0.02 (0.00-0.03) X10*3/uL Absolute Neuts (auto) 4.5 (2.0-8.3) x10*3/uL Absolute Nucleated RBC 0.000 (0.0-0.012) X10*3/uL Nucleated RBC % (auto) 0.0 (0.0-0.2) /100WBC Sodium 143 (135-145) mmol/L Potassium 4.2 (3.3-5.1) mmol/L Chloride 108 (96-108) mmol/L Carbon Dioxide 23 (22-29) mmol/L Anion Gap 16 (12-20) BUN 16 (9-16) mg/dL Creatinine 0.96 (0.5-1.4) mg/dL Estim Creat Clear Calc 151.5 Estimated GFR > 60 Random Glucose 117 H (60-115) mg/dL Calcium 9.9 D (8.4-10.2) mg/dL Total Bilirubin 0.5 (0.0-1.0) mg/dL Direct Bilirubin < 0.2 (0.0-0.5) mg/dL AST 16 (5-37) U/L ALT 25 (0-40) U/L Alkaline Phosphatase 69 (39-117) U/L Troponin I High Sens < 3.5 (<3.5-35.0) ng/L Total Protein 7.9 (6.5-8.0) g/dL Albumin 4.8 (3.5-5.0) g/dL COVID-19 (BHARGAVI) (Negative) COVID-19 Clin Com 10/22/22 Range/Units 16:03 WBC (4.8-10.8) X10*3/uL RBC (4.60-5.80) X10*6/uL Hgb (14.0-18.0) g/dl Hct (42.0-52.0) % MCV (80.0-98.0) fL MCH (27.0-33.0) pg MCHC (31.0-36.0) g/dl RDW (11.0-16.0) % Plt Count (160-400) X10*3/uL MPV (9.4-12.4) fL Immature Gran % (Auto) (0.0-0.4) % Neut % (Auto) (45-73) % Lymph % (Auto) (20-40) % [place] % (Auto) (2-11) % Eos % (Auto) (0-4) % Baso % (Auto) (0-2) % Lymph # (Auto) (1.2-4.9) X10*3/uL [place] # (Auto) (0.1-1.2) X10*3/uL Eos # (Auto) (0.0-0.4) X10*3/uL Baso # (Auto) (0.0-0.2) X10*3/uL Abs Immat Gran (auto) (0.00-0.03) X10*3/uL Absolute Neuts (auto) (2.0-8.3) x10*3/uL Absolute Nucleated RBC (0.0-0.012) X10*3/uL Nucleated RBC % (auto) (0.0-0.2) /100WBC Sodium (135-145) mmol/L Potassium (3.3-5.1) mmol/L Chloride (96-108) mmol/L Carbon Dioxide (22-29) mmol/L Anion Gap (12-20) BUN (9-16) mg/dL Creatinine (0.5-1.4) mg/dL Estim Creat Clear Calc Estimated GFR Random Glucose (60-115) mg/dL Calcium (8.4-10.2) mg/dL Total Bilirubin (0.0-1.0) mg/dL Direct Bilirubin (0.0-0.5) mg/dL AST (5-37) U/L ALT (0-40) U/L Alkaline Phosphatase (39-117) U/L Troponin I High Sens (<3.5-35.0) ng/L Total Protein (6.5-8.0) g/dL Albumin (3.5-5.0) g/dL COVID-19 (BHARGAVI) Negative (Negative) COVID-19 Clin Com See Note <Layla Sinclairирина, REG - Last Filed: 10/22/22 15:31> Lab Results 10/22/22 10/22/22 10/22/22 Range/Units 16:03 16:03 16:03 WBC 7.4 (4.8-10.8) X10*3/uL RBC 5.69 (4.60-5.80) X10*6/uL Hgb 14.8 (14.0-18.0) g/dl Hct 46.0 (42.0-52.0) % MCV 80.8 (80.0-98.0) fL MCH 26.0 L (27.0-33.0) pg MCHC 32.2 (31.0-36.0) g/dl RDW 14.7 (11.0-16.0) % Plt Count 349 (160-400) X10*3/uL MPV 9.2 L (9.4-12.4) fL Immature Gran % (Auto) 0.3 (0.0-0.4) % Neut % (Auto) 60.6 (45-73) % Lymph % (Auto) 26.3 (20-40) % [place] % (Auto) 8.0 (2-11) % Eos % (Auto) 3.9 (0-4) % Baso % (Auto) 0.9 (0-2) % Lymph # (Auto) 2.0 (1.2-4.9) X10*3/uL [place] # (Auto) 0.6 (0.1-1.2) X10*3/uL Eos # (Auto) 0.3 (0.0-0.4) X10*3/uL Baso # (Auto) 0.1 (0.0-0.2) X10*3/uL Abs Immat Gran (auto) 0.02 (0.00-0.03) X10*3/uL Absolute Neuts (auto) 4.5 (2.0-8.3) x10*3/uL Absolute Nucleated RBC 0.000 (0.0-0.012) X10*3/uL Nucleated RBC % (auto) 0.0 (0.0-0.2) /100WBC Sodium 143 (135-145) mmol/L Potassium 4.2 (3.3-5.1) mmol/L Chloride 108 (96-108) mmol/L Carbon Dioxide 23 (22-29) mmol/L Anion Gap 16 (12-20) BUN 16 (9-16) mg/dL Creatinine 0.96 (0.5-1.4) mg/dL Estim Creat Clear Calc 151.5 Estimated GFR > 60 Random Glucose 117 H (60-115) mg/dL Calcium 9.9 D (8.4-10.2) mg/dL Total Bilirubin 0.5 (0.0-1.0) mg/dL Direct Bilirubin < 0.2 (0.0-0.5) mg/dL AST 16 (5-37) U/L ALT 25 (0-40) U/L Alkaline Phosphatase 69 (39-117) U/L Troponin I High Sens < 3.5 (<3.5-35.0) ng/L Total Protein 7.9 (6.5-8.0) g/dL Albumin 4.8 (3.5-5.0) g/dL COVID-19 (BHARGAVI) (Negative) COVID-19 Clin Com 10/22/22 Range/Units 16:03 WBC (4.8-10.8) X10*3/uL RBC (4.60-5.80) X10*6/uL Hgb (14.0-18.0) g/dl Hct (42.0-52.0) % MCV (80.0-98.0) fL MCH (27.0-33.0) pg MCHC (31.0-36.0) g/dl RDW (11.0-16.0) % Plt Count (160-400) X10*3/uL MPV (9.4-12.4) fL Immature Gran % (Auto) (0.0-0.4) % Neut % (Auto) (45-73) % Lymph % (Auto) (20-40) % [place] % (Auto) (2-11) % Eos % (Auto) (0-4) % Baso % (Auto) (0-2) % Lymph # (Auto) (1.2-4.9) X10*3/uL [place] # (Auto) (0.1-1.2) X10*3/uL Eos # (Auto) (0.0-0.4) X10*3/uL Baso # (Auto) (0.0-0.2) X10*3/uL Abs Immat Gran (auto) (0.00-0.03) X10*3/uL Absolute Neuts (auto) (2.0-8.3) x10*3/uL Absolute Nucleated RBC (0.0-0.012) X10*3/uL Nucleated RBC % (auto) (0.0-0.2) /100WBC Sodium (135-145) mmol/L Potassium (3.3-5.1) mmol/L Chloride (96-108) mmol/L Carbon Dioxide (22-29) mmol/L Anion Gap (12-20) BUN (9-16) mg/dL Creatinine (0.5-1.4) mg/dL Estim Creat Clear Calc Estimated GFR Random Glucose (60-115) mg/dL Calcium (8.4-10.2) mg/dL Total Bilirubin (0.0-1.0) mg/dL Direct Bilirubin (0.0-0.5) mg/dL AST (5-37) U/L ALT (0-40) U/L Alkaline Phosphatase (39-117) U/L Troponin I High Sens (<3.5-35.0) ng/L Total Protein (6.5-8.0) g/dL Albumin (3.5-5.0) g/dL COVID-19 (BHARGAVI) Negative (Negative) COVID-19 Clin Com See Note <Maile Jones NP - Last Filed: 10/23/22 01:59> Independent Interpretation I performed an independent interpretation of an: EKG and Plain X-Ray <Maile Jones NP - Last Filed: 10/23/22 01:59> Interpretation: Normal sinus rhythm Nonspecific T wave abnormality Abnormal ECG When compared with ECG of 02-JUL-2022 14:19, Vent. rate has increased BY 30 BPM Nonspecific T wave abnormality now evident in Lateral leads Vent. rate 88 BPM AK interval 168 ms QRS duration 94 ms QT/QTc 366/442 ms P-R-T axes 55 5 43 08-FEB-2023 15:27:41 <Maile Jones NP - Last Filed: 10/23/22 01:59> Radiology Impression Discussion of test interpretation with radiology: I have reviewed the radiologist's reading. <Maile Jones NP - Last Filed: 10/23/22 01:59> Radiologist Impression: EXAMINATION: XR CHEST CLINICAL INFORMATION: Chest pain, shortness of breath. COMPARISON: 05/27/2019 chest radiograph. TECHNIQUE: 2 views of the chest were obtained. FINDINGS: No significant abnormality is noted involving the heart, lungs, mediastinum, bony thorax or soft tissues. XR/XR chest 2V IMPRESSION: No acute cardiopulmonary process. <Maile Jones NP - Last Filed: 10/23/22 01:59> External Record Review External record reviewed: Outpatient record and Prior outpatient labs <Maile Jones NP - Last Filed: 10/23/22 01:59> Chronic Conditions Patient?s care impacted by: Hypertension <Maile Jones NP - Last Filed: 10/23/22 01:59> Discharge Plan Discharge Clinical Impression: Heart palpitations <Layla Bryson NP - Last Filed: 10/22/22 15:31> Patient Disposition: Home, Self-Care <Layla Bryson NP - Last Filed: 10/22/22 15:31> Instructions: Heart Palpitations (ED) <Layla Bryson NP - Last Filed: 10/22/22 15:31> Additional Instructions: You were evaluated for palpitations while bike riding. Your lab values are within normal limits. Your EKG is normal sinus rhythm. Your chest x-ray is negative for acute findings. Please follow-up with primary care provider. You may require a threat monitoring analyst. Thank you for choosing this emergency department for evaluation. Please follow-up with primary care physician as needed. Return to the emergency department for any new, concerning, or worsening symptoms. <Layla Bryson NP - Last Filed: 10/22/22 15:31> Prescriptions: No Action triamcinolone acetonide 0.5 % cream 1 appl topical DAILY Qty: 45 1RF naproxen 500 mg tablet 500 mg PO BID PRN (Reason: pain) Qty: 14 0RF cyclobenzaprine 10 mg tablet 10 mg PO Q8H Qty: 14 0RF cyanocobalamin (vitamin B-12) 1,000 mcg capsule 1,000 mcg PO DAILY Qty: 30 3RF ferrous sulfate [FeroSul] 325 mg (65 mg iron) tablet 325 mg PO DAILY Qty: 30 3RF ascorbate calcium (vitamin C) 500 mg tablet 500 mg PO DAILY Qty: 30 3RF cetirizine 10 mg tablet 10 mg PO DAILY PRN (Reason: allergy symptoms) 90 Days Qty: 90 3RF <Layla Bryson NP - Last Filed: 10/22/22 15:31> Referrals: Po,Clau Kennedy MD [Primary Care Provider] - 2 weeks (Palpitations) <Layla Bryson NP - Last Filed: 10/22/22 15:31> Interventions: ED Discharge Assessment Last Done: 10/22/22 20:11 <Layla Bryson NP - Last Filed: 10/22/22 15:31> Discharge Date/Time: 10/22/22 20:13 <Layla Bryson NP - Last Filed: 10/22/22 15:31>
--- NOTE | 2022-10-22 15:22 | ECG_ITS ---
Test Reason : chest tightness Blood Pressure : / mmHG Vent. Rate : 088 BPM Atrial Rate : 088 BPM P-R Int : 168 ms QRS Dur : 094 ms QT Int : 366 ms P-R-T Axes : 055 005 043 degrees QTc Int : 442 ms Normal sinus rhythm Nonspecific T wave abnormality Abnormal ECG When compared with ECG of 02-JUL-2022 14:19, Vent. rate has increased BY 30 BPM Nonspecific T wave abnormality now evident in Lateral leads Referred By: Generic ED Physician Electronically Signed By:CARITO BOX MD
[2022-10-22 15:24] VITALS: RESP 17; TEMP 36.6; BMI 28.9
[2022-10-22 16:08] LABS: MANUAL DIFF FLAG NO
[2022-10-22 16:11] LABS: Basophils Absolute Auto 0.1 X10*3/uL (0.0-0.2); Basophils Percent Auto 0.9 % (0-2); Eosinophils Absolute Auto 0.3 X10*3/uL (0.0-0.4); Eosinophils Percent Auto 3.9 % (0-4); Hemoglobin 14.8 g/dl (14.0-18.0); Imm Gran Abs Auto 0.02 X10*3/uL (0.00-0.03); Imm Gran Pct Auto 0.3 % (0.0-0.4); Lymphocytes Percent Auto 26.3 % (20-40); Mean Corpuscular HGB Conc 32.2 g/dl (31.0-36.0); Mean Corpuscular Volume 80.8 fL (80.0-98.0); Mean Platelet Volume 9.2 fL (9.4-12.4); Monocytes Absolute Auto 0.6 X10*3/uL (0.1-1.2); Neutrophils Absolute Auto 4.5 x10*3/uL (2.0-8.3); Neutrophils Percent Auto 60.6 % (45-73); Platelet Count 349 X10*3/uL (160-400); Red Blood Count 5.69 X10*6/uL (4.60-5.80); Red Cell Distribution Width 14.7 % (11.0-16.0); White Blood Count 7.4 X10*3/uL (4.8-10.8)
[2022-10-22 16:23] LABS: IDNOW Serial# 16C4AD1C
[2022-10-22 16:24] LABS: COVID-19 Test Negative (Negative)
[2022-10-22 16:26] LABS: Alanine Aminotransferase 25 U/L (0-40); Albumin Level 4.8 g/dL (3.5-5.0); Alkaline Phosphatase 69 U/L (39-117); Anion Gap 16 (12-20); Aspartate Amino Transferase 16 U/L (5-37); Bilirubin Direct < 0.2 mg/dL (0.0-0.5); Bilirubin Total 0.5 mg/dL (0.0-1.0); Blood Urea Nitrogen 16 mg/dL (9-16); Calcium 9.9 mg/dL (8.4-10.2); Carbon Dioxide 23 mmol/L (22-29); Chloride 108 mmol/L (96-108); Creatinine Clr Calc Pharmacy 151.5; Estimated Glomerular Filt Rate > 60; Glucose Random 117 mg/dL (60-115); Potassium 4.2 mmol/L (3.3-5.1); Sodium 143 mmol/L (135-145); Total Protein 7.9 g/dL (6.5-8.0)
[2022-10-22 16:34] LABS: Troponin-I High Sensitivity < 3.5 ng/L (<3.5-35.0)
[2022-10-22 18:11] VITALS: BP 132/84; PULSE 69; RESP 20; O2SAT 100
--- NOTE | 2022-10-22 18:18 | PC.NURSE ---
pt resting comfortably on stretcher at this time, normal sinus on the monitor, no apparent distress, denies CP and SOB
[2022-10-22 19:54] VITALS: BP 155/77; PULSE 71; RESP 20; O2SAT 98
--- NOTE | 2022-10-22 20:01 | PC.NURSE ---
This RN checked in with pt to apologize for wait, pt verbalized frustration about wait, this RN spoke with REG Gr who stated she will see the patient shortly
== END 2022-10-22 20:13 | disposition home or self-care (01) ==
PROVIDERS: Nurse Practitioner Family; Emergency Provider Emergency Medicine; PCP Internal Medicine
DX: R00.2 Palpitations (principal); R06.02 Shortness of breath; F41.1 Generalized anxiety disorder; F12.90 Cannabis use, unspecified, uncomplicated; Z20.822 Contact with and (suspected) exposure to COVID-19
CPT/HCPCS: 71046; 80048; 80076; 84484; 85025; 87635; 93005; 99283; 99284

== ENCOUNTER 2023-04-02 10:34 | Outpatient (REF) | payer OTHER, SELFPAY ==
--- NOTE | ~2023-04-02 | XR_ITS ---
EXAMINATION: XR CHEST CLINICAL INFORMATION: Chest pain COMPARISON: October 22, 2022 and May 27, 2019 TECHNIQUE: 2 views of the chest were obtained. FINDINGS: No significant abnormality is noted involving the heart, lungs, mediastinum, bony thorax or soft tissues. XR/XR chest 2V IMPRESSION: No acute disease.
--- NOTE | 2023-04-02 10:39 | ECG_ITS ---
Test Reason : cp Blood Pressure : / mmHG Vent. Rate : 058 BPM Atrial Rate : 058 BPM P-R Int : 202 ms QRS Dur : 094 ms QT Int : 412 ms P-R-T Axes : 055 006 041 degrees QTc Int : 404 ms Sinus bradycardia Otherwise normal ECG When compared with ECG of 22-OCT-2022 15:27, Vent. rate has decreased BY 30 BPM Referred By: Clau Moseley Electronically Signed By:Jose Ross
[2023-04-02 11:00] LABS: MANUAL DIFF FLAG NO
[2023-04-02 12:27] LABS: Basophils Absolute Auto 0.1 X10*3/uL (0.0-0.2); Basophils Percent Auto 1.1 % (0-2); Eosinophils Absolute Auto 0.4 X10*3/uL (0.0-0.4); Eosinophils Percent Auto 6.4 % (0-4); Hematocrit 44.1 % (42.0-52.0); Hemoglobin 14.1 g/dl (14.0-18.0); Imm Gran Abs Auto 0.01 X10*3/uL (0.00-0.03); Imm Gran Pct Auto 0.2 % (0.0-0.4); Lymphocytes Percent Auto 30.1 % (20-40); Mean Corpuscular Hemoglobin 26.2 pg (27.0-33.0); Mean Platelet Volume 9.8 fL (9.4-12.4); Monocytes Absolute Auto 0.6 X10*3/uL (0.1-1.2); Monocytes Percent Auto 8.6 % (2-11); Neutrophils Absolute Auto 3.5 x10*3/uL (2.0-8.3); Neutrophils Percent Auto 53.6 % (45-73); Platelet Count 340 X10*3/uL (160-400); Red Blood Count 5.38 X10*6/uL (4.60-5.80); Red Cell Distribution Width 14.3 % (11.0-16.0); White Blood Count 6.5 X10*3/uL (4.8-10.8)
[2023-04-02 14:16] LABS: Estimated Average Glucose 123 mg/dL; Hemoglobin A1C 150.0659 umol/L; Hemoglobin A1c % 5.9 %
[2023-04-02 15:02] LABS: Alanine Aminotransferase 22 U/L (0-40); Albumin Level 4.3 g/dL (3.5-5.0); Alkaline Phosphatase 63 U/L (39-117); Anion Gap 13 (12-20); Aspartate Amino Transferase 14 U/L (5-37); Bilirubin Total 0.4 mg/dL (0.0-1.0); Blood Urea Nitrogen 13 mg/dL (9-16); Calcium 9.6 mg/dL (8.4-10.2); Carbon Dioxide 26 mmol/L (22-29); Chloride 106 mmol/L (96-108); Cholesterol 125 mg/dL; Estimated Glomerular Filt Rate > 60; Glucose Random 107 mg/dL (60-115); HDL Cholesterol 34 mg/dL; LDL Cholesterol Calculated 74 mg/dl; Potassium 3.9 mmol/L (3.3-5.1); Sodium 141 mmol/L (135-145); Total Protein 7.4 g/dL (6.5-8.0); Triglycerides 86 mg/dL
[2023-04-02 15:03] LABS: Free T4 (Free Thyroxine) 0.91 ng/dL (0.71-1.85); Thyroid Stimulating Hormone 1.44 uIU/mL (0.32-4.0)
[2023-04-03 08:25] LABS: Syphilis Screen Nonreactive (Nonreactive)
[2023-04-03 08:44] LABS: HBS Num1 4.68 mIU/mL (0-7.99); HBc Num1 0.07 S/CO (0.00-0.79); HBsAGNum1 0.34 S/CO (0.00-0.99); HIV AB/AG Nonreactive (Nonreactive); HIV Num 1 0.11 S/CO (0.00-0.99); Hepatitis B Core Antibody Nonreactive (Nonreactive); Hepatitis B Surface Antigen Negative (Negative); ~HepC Num1 0.07 S/CO (0.00-0.79); ~Hepatitis B Surface Antibody NONREACTIVE (Nonreactive); ~Hepatitis C Antibody Nonreactive (Nonreactive)
== END 2023-04-02 10:35 | disposition home or self-care (01) ==
LOC: HO.LAB 10:34
PROVIDERS: PCP Internal Medicine; Visit Provider Internal Medicine
DX: Z11.4 Encounter for screening for human immunodeficiency virus [HIV] (principal); R07.9 Chest pain, unspecified; E78.00 Pure hypercholesterolemia, unspecified; R79.89 Other specified abnormal findings of blood chemistry
CPT/HCPCS: 36415; 71046; 80053; 80061; 83036; 84439; 84443; 85025; 86704; 86706; 86780; 86803; 87340; 87389; 93005

== ENCOUNTER → 2023-04-02 10:39 | Outpatient (BNV) | payer OTHER, SELFPAY | PROVIDERS: PCP Internal Medicine; Visit Provider Internal Medicine Cardiovascular Disease | DX: R07.9 Chest pain, unspecified (principal) | CPT/HCPCS: 93010 ==

== ENCOUNTER 2023-04-24 12:50 | Outpatient (AMB) | payer OTHER, SELFPAY ==
[2023-04-24 12:52] VITALS: BP 128/84; PULSE 81; O2SAT 98; BMI 31.0
--- NOTE | 2023-04-24 12:52 | MHC.PC.OV ---
Vital Signs 04/24/23 12:52 Height 6 ft 9 in Weight 289 lb BMI 31.0 BP 128/84 Blood Pressure Location Lt brachial Position Sitting Pulse 81 Pulse Source Pulse Oximeter Temp Source Skin Pulse Oximetry (%) 98 Oxygen Delivery Method Room Air Intake Visit Reasons: chest pain Property Administrator Required: No Allergies caffeine [CAFFEINE] Allergy (Severe, Verified 04/24/23 12:52) INTESTINAL BLEEDING fish oil [FISH OIL] Allergy (Mild, Verified 04/24/23 12:52) RASH fish derived [fish] Allergy (Unknown, Verified 04/24/23 12:52) Unknown fluoxetine Allergy (Unknown, Verified 04/24/23 12:52) Unknown milk Allergy (Unknown, Verified 04/24/23 12:52) Unknown peanut [PEANUT] Allergy (Unknown, Verified 04/24/23 12:52) UNKNOWN Peanut Butter Flavor Allergy (Unknown, Verified 04/24/23 12:52) Unknown Iodinated Contrast Media Allergy (Verified 04/24/23 12:52) Hives egg [EGGS] Adverse Reaction (Unknown, Verified 04/24/23 12:52) STOMACH CRAMPING Stress test dye allergy Allergy (Unknown, Uncoded 04/24/23 12:52) Rash Tobacco use date assessed: 04/24/23 Dental Screening Dental Screen Date: 04/24/23 Did you have a dental visit in the last 12 months?: Yes Did you have a dental problem in the last 6 months where you did not have access to dental care?: No Was dental information given to patient?: Patient has dentist HPI chest pain HPI Details 43-year-old obese male with impaired glucose tolerance generalized anxiety disorder chronic low back pain and chest pain last seen in February 2023 EKG chest x-ray and the whole blood work requested patient is here for follow-up patient was seen in February 2023 [facility] Medical History (Updated 04/24/23 @ 13:05 by Clau Moseley MD) Allergic rhinitis Chronic low back pain Generalized anxiety disorder Overweight (BMI 25.0-29.9) Surgical History History of umbilical hernia repair Family History Father Prostate cancer CVD (cardiovascular disease) Hypertension Mother Ovarian cancer Breast cancer Hypertension Maternal Grandmother Cancer Vulvar cancer Paternal Grandmother Diabetes Paternal Aunt Diabetes Paternal Uncle Diabetes Son Asthma Heart problem Family/Other FH: mental illness Substance abuse Social History (Updated 11/26/22 @ 12:14 by Clau Moseley MD) Housing: Apartment Alcohol intake: never Patient Tobacco Use Status: Never used Tobacco Years Smoked: smokes marijuana e-Cigarette/Vaping Use: Never Used Second Hand Smoke Exposure: No Substance Use Type: Marijuana Current occupational status: employed Cognitive needs: No Hearing needs: No Vision needs: Yes Questionnaire Thrive Questionnaire Date Thrive assessed: 10/27/22 AUDIT C Alcohol Use Questionnaire (AUDIT-C) 1. How often do you have a drink containing alcohol?: Monthly or less 2. How many drinks containing alcohol do you have on a typical day when you are drinking?: 1 or 2 3. How often do you have six or more drinks on one occasion?: Never Total Score: 1 KATHY-7 AMB Questionnaire KATHY-7 Date KATHY - 7 assessed: 10/27/22 Source: Developed by Drs. Narinder Gorman, Sandra Pereira, Juvencio Kahn and colleagues, with an educational ismael from [employer]. Physical exam (Primary Care) Vital Signs: Last Vital Signs Pulse 81 04/24/23 12:52 BP 128/84 04/24/23 12:52 Pulse Ox 98 04/24/23 12:52 Oxygen Delivery Method Room Air 04/24/23 12:52 BMI result Body Mass Index 31.0 Tobacco/Smoking Status: Tobacco use Status Tobacco use date assessed 04/24/23 04/24/23 12:57 Patient Tobacco Use Status Never used Tobacco 04/24/23 12:57 e-Cigarette/Vaping Use Never Used 04/24/23 12:57 Thrive Assessment: Date of Thrive Assessment Date Thrive assessed 10/27/22 04/24/23 12:57 Const General: alert; No acute distress Eyes Conjunctivae: conjunctivae normal Resp Auscultation: clear to auscultation bilaterally Cardio Rate: regular rate Rhythm: regular rhythm GI Inspection: Yes normal to inspection Extrem General: Yes normal to inspection and No edema Assessment and Plan Assessment & Plan (1) Chest pain: Code(s): R07.9 - Chest pain, unspecified Plan: Workup so far has been negative chest x-ray was negative EKG is within normal . Discussed about musculoskeletal pain, reassurance (2) Impaired glucose tolerance: Code(s): R73.02 - Impaired glucose tolerance (oral) Plan: Decrease the amount of carbohydrate intake, pasta, bread, rice and potatoes are all sugar and that is aside from all the sweet stuff, remember that fruits are good but they are Sweet also. (3) Obesity (BMI 30.0-34.9): Code(s): E66.9 - Obesity, unspecified Plan: Diet and exercise (4) Chronic low back pain: Comment: MRI 2014 L4-L5 right and L5-S1 left nerve root impingement Code(s): M54.50 - Low back pain, unspecified; G89.29 - Other chronic pain Plan: Keep active (5) Generalized anxiety disorder: Code(s): F41.1 - Generalized anxiety disorder Plan: Stable (6) Tic: Code(s): F95.9 - Tic disorder, unspecified Plan: conservative treatment for now Coding Level of Care Code Est Pt Level 4 (20255) Diagnoses Chest pain R07.9 Impaired glucose tolerance R73.02 Obesity (BMI 30.0-34.9) E66.9 Chronic low back pain M54.50; G89.29 Generalized anxiety disorder F41.1 Tic F95.9
== END 2023-04-24 13:08 | disposition home or self-care (01) ==
PROVIDERS: PCP Internal Medicine; Visit Provider Internal Medicine
DX: R07.9 Chest pain, unspecified (principal); E66.9 Obesity, unspecified; Z68.30 Body mass index [BMI] 30.0-30.9, adult; F95.9 Tic disorder, unspecified; R73.02 Impaired glucose tolerance (oral); M54.50 Low back pain, unspecified; G89.29 Other chronic pain; F41.1 Generalized anxiety disorder
CPT/HCPCS: 99214

== ENCOUNTER 2023-11-30 11:19 | Outpatient (AMB) | payer OTHER, SELFPAY ==
[2023-11-30 11:35] VITALS: BP 130/80; PULSE 67; O2SAT 96; BMI 30.4
--- NOTE | 2023-11-30 11:35 | A.OFFPC_ITS ---
Vital Signs 11/30/23 11:35 Height 6 ft 9 in Weight 284 lb BMI 30.4 BP 130/80 Blood Pressure Location Lt brachial Position Sitting Pulse 67 Pulse Source Pulse Oximeter Pulse Oximetry (%) 96 Oxygen Delivery Method Room Air Intake Visit Reasons: pe Intake Note: Patient is here today for a physical. Clinical Laboratory Aide Required: No Allergies caffeine [CAFFEINE] Allergy (Severe, Verified 11/30/23 11:51) INTESTINAL BLEEDING fish oil [FISH OIL] Allergy (Mild, Verified 11/30/23 11:51) RASH fish derived [fish] Allergy (Unknown, Verified 11/30/23 11:51) Unknown fluoxetine Allergy (Unknown, Verified 11/30/23 11:51) Unknown milk Allergy (Unknown, Verified 11/30/23 11:51) Unknown peanut [PEANUT] Allergy (Unknown, Verified 11/30/23 11:51) UNKNOWN Peanut Butter Flavor Allergy (Unknown, Verified 11/30/23 11:51) Unknown Iodinated Contrast Media Allergy (Verified 11/30/23 11:51) Hives egg [EGGS] Adverse Reaction (Unknown, Verified 11/30/23 11:51) STOMACH CRAMPING Stress test dye allergy Allergy (Unknown, Uncoded 11/30/23 11:51) Rash Medication List - Last Reconciled 11/30/23 by Clau Moseley MD amoxicillin 500 mg PO TID triamcinolone acetonide 0.5% 1 appl topical DAILY Tobacco use date assessed: 11/30/23 Dental Screening Dental Screen Date: 11/30/23 Did you have a dental visit in the last 12 months?: Yes Did you have a dental problem in the last 6 months where you did not have access to dental care?: No Was dental information given to patient?: Patient has dentist HPI pe HPI Details 43-year-old obese male with chronic low back pain and generalized anxiety disorder last seen in April 2023 patient is here for physical exam. loss of apetitte, REPLACED BY [facility] Medical History (Updated 04/24/23 @ 13:05 by Clau Moseley MD) Overweight (BMI 25.0-29.9) Allergic rhinitis Generalized anxiety disorder Chronic low back pain Surgical History History of umbilical hernia repair Family History Father Prostate cancer CVD (cardiovascular disease) Hypertension Mother Ovarian cancer Breast cancer Hypertension Maternal Grandmother Cancer Vulvar cancer Paternal Grandmother Diabetes Paternal Aunt Diabetes Paternal Uncle Diabetes Son Asthma Heart problem Family/Other FH: mental illness Substance abuse Social History (Updated 11/26/22 @ 12:14 by Clau Moseley MD) Housing: Apartment Alcohol intake: current Comment: once a month 2-3 drinks Patient Tobacco Use Status: Former Tobacco user Years Smoked: smokes marijuana (19 years old) e-Cigarette/Vaping Use: Never Used Second Hand Smoke Exposure: No Substance Use Type: Marijuana Current occupational status: employed Cognitive needs: No Hearing needs: No Vision needs: Yes Questionnaire PHQ-9 Over the last 2 weeks, how often have you been bothered by any of the following problems? 1. Little interest or pleasure in doing things: more than half the days 2. Feeling down, depressed, or hopeless: more than half the days 3. Trouble falling or staying asleep, or sleeping too much: not at all 4. Feeling tired or having little energy: not at all 5. Poor appetite or overeating: not at all 6. Feeling bad about yourself - or that you are a failure or have let yourself or your family down: not at all 7. Trouble concentrating on things, such as reading the newspaper or watching television: not at all 8. Moving or speaking so slowly that other people could have noticed. Or the opposite - being so fidgety or restless that you have been moving around a lot more than usual: not at all 9. Thoughts that you would be better off or of hurting yourself in some way: not at all Total score: 4 Depression Screening Interpretation: Positive Depression Screening Done: Yes Source: Developed by Drs. Narinder Gorman, Sandra Pereira, Juvencio Kahn and colleagues, with an educational ismael from [employer]. Thrive Questionnaire Date Thrive assessed: 11/30/23 I am a: Patient What is your living situation today?: I have a steady place to live Within the past 12 months, did the food you bought not last and you didn't have the money to get more?: Never true Within the past 12 months, did you worry whether your food would run out before you got money to buy more?: Never true Do you have trouble paying for medicines?: No Do you have trouble getting transportation to medical appointments?: No Do you have trouble paying your heating and electricity bill?: No Do you have trouble taking care of your child, family member or friend?: No Do you have trouble with day-to-day activities such as bathing, preparing meals, shopping, managing finances, etc.?: No Are you currently unemployed and looking for a job?: No Are you interested in more education?: No Please select the resources that you would like help with: None THRIVE Score: 0 AUDIT C Alcohol Use Questionnaire (AUDIT-C) 1. How often do you have a drink containing alcohol?: Monthly or less 2. How many drinks containing alcohol do you have on a typical day when you are drinking?: 1 or 2 3. How often do you have six or more drinks on one occasion?: Never Total Score: 1 KATHY-7 AMB Questionnaire KATHY-7 Date KATHY - 7 assessed: 11/30/23 Feeling nervous, anxious, or on edge: 1 = Several days Not being able to stop or control worryin = Several days Worrying too much about different things: 0 = Not at all Trouble relaxin = Not at all Being so restless that it is hard to sit still: 0 = Not at all Becoming easily annoyed or irritable: 0 = Not at all Feeling afraid as if something awful might happen: 0 = Not at all Total KATHY-7 score (0-4 normal; 5-9 mild; 10-14 moderate; 15-21 severe): 2 Source: Developed by Drs. Narinder Gorman, Sandra Pereira, Juvencio Kahn and colleagues, with an educational ismael from [employer]. Review of Systems Const Denies poor appetite and Denies weakness Eyes Denies no additional complaints ENT Reports Normal hearing present, Denies dizziness, Denies nasal congestion, Denies tinnitus and Denies sore throat Card Denies chest pain, Denies syncope, Denies rapid heart rate and Denies dyspnea Resp Denies cough and Denies dyspnea GI Denies change in stool character, Reports constipation, Denies diarrhea, Denies nausea and Denies vomiting Denies dysuria and Denies urinary frequency Neuro Reports Normal hearing present, Denies confusion, Denies dizziness, Denies syncope and Denies weakness Psych Denies confusion Physical exam (Primary Care) Vital Signs: Last Vital Signs Pulse 67 11/30/23 11:35 BP 130/80 11/30/23 11:35 Pulse Ox 96 11/30/23 11:35 Oxygen Delivery Method Room Air 11/30/23 11:35 BMI result Body Mass Index 30.4 Tobacco/Smoking Status: Tobacco use Status Tobacco use date assessed 11/30/23 11/30/23 11:37 Patient Tobacco Use Status Never used Tobacco 11/30/23 11:35 e-Cigarette/Vaping Use Never Used 11/30/23 11:35 PHQ-9: PHQ-9 Score PHQ-9: Total score 4 11/30/23 11:55 Depression Screening Interpretation: Positive Thrive Assessment: Date of Thrive Assessment Date Thrive assessed 11/30/23 11/30/23 11:37 Const General: No confusion Orientation/consciousness: No confusion HENMT Head: Yes normocephalic Ears: external ears normal and TM's normal bilaterally Face and sinus: Yes normal facial exam Mouth: moist mucous membranes Throat: Yes tonsils normal Eyes Conjunctivae: conjunctivae normal Pupils: Equal, round and reactive pupils present and Pupil accommodation reflex normal Direct Ophthalmoscopy: normal light reflex Neck Neck: No lymphadenopathy Thyroid: Thyroid normal Chest Chest palpation & inspection: normal inspection of the chest Resp Effort & Inspection: normal respiratory effort and no audible wheezes Auscultation: clear to auscultation bilaterally, no crackles, no wheezes and lung sounds not diminished Cardio Rate: regular rate Rhythm: regular rhythm Peripheral pulses: radial pulses present and dorsalis pedis present GI Other: visual rectal exam N, umbilical hernia mild Palpation (GI): no masses Auscultation: normal bowel sounds and normoactive bowel sounds Male General Exam: Yes normal external exam Skin General skin exam: no rashes or lesions noted Rashes: no rashes Neuro General: No confusion Cranial nerves: Yes Equal, round and reactive pupils present and Yes Normal hearing present Cognition (Neuro): normal cognition Gait exam (Neuro): Normal gait present Motor exam (neuro): 5/5 motor strength present throughout Deep tendon reflexes (DTR's): Right brachioradialis reflex intensity grade: 2+, Left brachioradialis reflex intensity grade: 2+, Right patellar reflex intensity grade: 2+ and Left patellar reflex intensity grade: 2+ Extrem General: No edema Assessment and Plan Assessment & Plan (1) Annual physical exam: Code(s): Z00.00 - Encounter for general adult medical examination without abnormal findings (2) Generalized anxiety disorder: Code(s): F41.1 - Generalized anxiety disorder Plan: Stable (3) Chronic low back pain: Comment: MRI 2014 L4-L5 right and L5-S1 left nerve root impingement Code(s): M54.50 - Low back pain, unspecified; G89.29 - Other chronic pain Plan: Stable (4) Obesity (BMI 30.0-34.9): Code(s): E66.9 - Obesity, unspecified Plan: Diet and exercise (5) Impaired glucose tolerance: Code(s): R73.02 - Impaired glucose tolerance (oral) Plan: Decrease the amount of carbohydrate intake, pasta, bread, rice and potatoes are all sugar and that is aside from all the sweet stuff, remember that fruits are good but they are Sweet also. Coding Level of Care Code Est Pt Prev Care 40-64y(96332) Diagnoses Annual physical exam Z00.00 Generalized anxiety disorder F41.1 Chronic low back pain M54.50; G89.29 Obesity (BMI 30.0-34.9) E66.9 Impaired glucose tolerance R73.02
== END 2023-11-30 12:21 | disposition home or self-care (01) ==
PROVIDERS: PCP Internal Medicine; Visit Provider Internal Medicine
DX: Z00.00 Encounter for general adult medical examination without abnormal findings (principal); F41.1 Generalized anxiety disorder; E66.9 Obesity, unspecified; Z68.30 Body mass index [BMI] 30.0-30.9, adult; M54.50 Low back pain, unspecified; G89.29 Other chronic pain; R73.02 Impaired glucose tolerance (oral)
CPT/HCPCS: 99396

== ENCOUNTER 2024-02-09 15:58 | Emergency (ER) | payer OTHER, SELFPAY ==
--- NOTE | ~2024-02-09 | XR_ITS ---
EXAMINATION: XR CHEST CLINICAL INFORMATION: Chest pain COMPARISON: 04/02/2023 TECHNIQUE: 2 views of the chest were obtained. FINDINGS: Minor atelectasis left base stable. Lungs otherwise clear. No pleural effusions. Heart and pulmonary vessels normal. XR/XR chest 2V IMPRESSION: No active disease.
--- NOTE | 2024-02-09 16:01 | ECG_ITS ---
Test Reason : CHEST PAIN Blood Pressure : / mmHG Vent. Rate : 073 BPM Atrial Rate : 073 BPM P-R Int : 172 ms QRS Dur : 098 ms QT Int : 388 ms P-R-T Axes : 063 003 054 degrees QTc Int : 427 ms Normal sinus rhythm Normal ECG When compared with ECG of 02-APR-2023 10:46, No significant change was found Referred By: Trish Jean-Baptiste Electronically Signed By:SABINO LEVI
--- NOTE | 2024-02-09 16:14 | ED_ITS ---
HPI - General Adult General Chief complaint: Chest Pain Stated complaint: chest pain/left arm tingly Time Seen by Provider: 02/09/24 21:29 Source: patient Mode of arrival: ambulatory Limitations: no limitations History of Present Illness ED Provider: mag ACUNA narrative: Patient is 43 years old active and healthy nonsmoker no significant family history of coronary disease apparently was helping in moving about 4 days ago since then been having pain in the left chest with tingling sensation in the left arm off and on no shortness a breath no diaphoresis chest pain is like an ache no pain in the nighttime pain increases on palpation and movement Related Data Home Medications ?Medication ?Instructions ?Recorded ?Confirmed amoxicillin 500 mg capsule 500 mg PO TID 11/30/23 11/30/23 Previous Rx's ?Medication ?Instructions ?Recorded triamcinolone acetonide 0.5 % 1 appl topical DAILY #45 grams 11/26/22 topical cream ibuprofen 600 mg tablet 600 mg PO Q6H PRN fever or pain 02/09/24 #30 tabs Allergies Allergy/AdvReac Type Severity Reaction Status Date / Time caffeine [CAFFEINE] Allergy Severe INTESTINAL Verified 02/09/24 16:16 BLEEDING Iodinated Contrast Media Allergy Intermediate Hives Verified 02/09/24 16:16 fish oil [FISH OIL] Allergy Mild RASH Unverified 02/09/24 16:16 fish derived [fish] Allergy Unknown Unknown Verified 02/09/24 16:16 fluoxetine Allergy Unknown Unknown Verified 02/09/24 16:16 milk Allergy Unknown Unknown Verified 02/09/24 16:16 peanut [PEANUT] Allergy Unknown UNKNOWN Verified 02/09/24 16:16 Peanut Butter Flavor Allergy Unknown Unknown Verified 02/09/24 16:16 egg [EGGS] AdvReac Unknown STOMACH Verified 02/09/24 16:16 CRAMPING Review of Systems 2 Review of Systems: Yes all other systems are reviewed and are negative PMFSH Past Medical History Medical History Overweight (BMI 25.0-29.9) Allergic rhinitis Generalized anxiety disorder Chronic low back pain Surgical History History of umbilical hernia repair Family History Family History Father Prostate cancer CVD (cardiovascular disease) Hypertension Mother Ovarian cancer Breast cancer Hypertension Maternal Grandmother Cancer Vulvar cancer Paternal Grandmother Diabetes Paternal Aunt Diabetes Paternal Uncle Diabetes Son Asthma Heart problem Family/Other FH: mental illness Substance abuse Social History Social History Housing: Apartment Alcohol intake: current Comment: once a month 2-3 drinks Patient Tobacco Use Status: Former Tobacco user Years Smoked: smokes marijuana (19 years old) e-Cigarette/Vaping Use: Never Used Second Hand Smoke Exposure: No Substance Use Type: Marijuana Advance Directives: No Advance Directives Information Provided: No Do you have a plan to hurt others: No Plan Current occupational status: employed Cognitive needs: No Hearing needs: No Vision needs: Yes Physical Exam ED Vital Signs: Vital Signs - 24 hr 02/09/24 16:15 Temperature 97.8 F Pulse Rate 64 Respiratory Rate 16 Blood Pressure 127/83 Pulse Oximetry 96 Oxygen Delivery Method Room Air BMI result Body Mass Index 30.8 Appearance: Alert. Oriented X3. No acute distress. ENT: Pharynx normal. Oral Mucosa moist Neck: Normal inspection. Neck supple. CVS: Normal heart rate and rhythm. Pulses normal. Respiratory: No respiratory distress. Equal air entry bilateral, no wheezing/rales/rhonchi left chest wall with reproducible pain Abdomen: Soft and nontender. Bowel sounds are present, no mass palpable, no CVA tenderness Skin: Skin warm and dry. Normal skin color. Normal skin turgor. Extremities: No lower extremity edema. No calf tenderness Neuro: Oriented X 3. Course Course Course Narrative: RME performed by Trish Jean-Baptiste PA-C. Patient is a 43 year old assigned male at presenting to the emergency department with chest pain. Patient states over the last 4 days he has been having chest pain. Patient states that he thought it was a pulled muscle but it isn't getting better and he has been having episodes of lightheadedness and feeling generally unwell. Detailed physical exam and review of systems are deferred to the emergency medicine physician assistant. EKG, labs, imaging, and swabs ordered. Patient placed back in the waiting room pending room availability and results. Medical Decision Making Medical Decision Making MDM Narrative: Patient has atypical chest pain clinically musculoskeletal pain heart score of 0 in cardiac enzymes negative EKG normal discharge patient home on ibuprofen advised to follow up PCP Differential Diagnosis Differential Diagnoses: The differential diagnosis associated with the presentation includes Lab Data MDM Lab Attestation statement: I reviewed the patient's lab results. 02/09/24 16:41 02/09/24 16:41 Labs: Lab Results 02/09/24 Range/Units 16:41 WBC 6.6 (4.8-10.8) X10*3/uL RBC 5.21 (4.60-5.80) X10*6/uL Hgb 13.8 L (14.0-18.0) g/dl Hct 42.6 (42.0-52.0) % MCV 81.8 (80.0-98.0) fL MCH 26.5 L (27.0-33.0) pg MCHC 32.4 (31.0-36.0) g/dl RDW 14.4 (11.0-16.0) % Plt Count 312 (160-400) X10*3/uL MPV 9.0 L (9.4-12.4) fL Immature Gran % (Auto) 0.3 (0.0-0.4) % Neut % (Auto) 52.7 (45-73) % Lymph % (Auto) 33.3 (20-40) % [place] % (Auto) 8.1 (2-11) % Eos % (Auto) 4.7 H (0-4) % Baso % (Auto) 0.9 (0-2) % Lymph # (Auto) 2.2 (1.2-4.9) X10*3/uL [place] # (Auto) 0.5 (0.1-1.2) X10*3/uL Eos # (Auto) 0.3 (0.0-0.4) X10*3/uL Baso # (Auto) 0.1 (0.0-0.2) X10*3/uL Abs Immat Gran (auto) 0.02 (0.00-0.03) X10*3/uL Absolute Neuts (auto) 3.5 (2.0-8.3) x10*3/uL Absolute Nucleated RBC 0.000 (0.0-0.012) X10*3/uL Nucleated RBC % (auto) 0.0 (0.0-0.2) /100WBC PT 12.7 (11.1-13.3) SEC INR 1.0 (0.9-1.1) APTT 29.6 (26.0-36.8) SEC Sodium 140 (135-145) mmol/L Potassium 4.0 (3.3-5.1) mmol/L Chloride 106 (96-108) mmol/L Carbon Dioxide 28 (22-29) mmol/L Anion Gap 10 L (12-20) BUN 16 (9-16) mg/dL Creatinine 0.96 (0.5-1.4) mg/dL Estim Creat Clear Calc 154.3 Estimated GFR > 60 Random Glucose 120 H (60-115) mg/dL Calcium 9.8 (8.4-10.2) mg/dL Magnesium 1.9 (1.6-2.6) mg/dL Total Bilirubin 0.2 (0.0-1.0) mg/dL AST 14 (5-37) U/L ALT 19 (0-40) U/L Alkaline Phosphatase 74 (39-117) U/L Troponin I High Sens < 2.7 (<3.5-35.0) ng/L Total Protein 7.7 (6.5-8.0) g/dL Albumin 4.5 (3.5-5.0) g/dL Influenza Type A (PCR) NEGATIVE (Negative) Influenza Type B (PCR) NEGATIVE (Negative) RSV RNA Qual (PCR) NEGATIVE (Negative) SARS-CoV-2 RNA (RT-PCR) NEGATIVE (Negative) Independent Interpretation I performed an independent interpretation of an: EKG Interpretation: Normal sinus rhythm heart rate 73 beats per minute normal interval normal axis no acute ST T wave changes impression normal EKG Discharge Plan Discharge Clinical Impression: Chest pain Patient Disposition: Home, Self-Care Instructions: Chest Pain (ED) Additional Instructions: Your chest pain is likely musculoskeletal Take ibuprofen 600 mg every 6 hours as needed Follow with your PCP if not better Prescriptions: New ibuprofen 600 mg tablet 600 mg PO Q6H PRN (Reason: fever or pain) Qty: 30 0RF No Action triamcinolone acetonide 0.5 % cream 1 appl topical DAILY Qty: 45 1RF amoxicillin 500 mg capsule 500 mg PO TID Print Language: Yi
[2024-02-09 16:15] VITALS: BP 127/83; PULSE 64; RESP 16; TEMP 36.6; O2SAT 96; BMI 30.8
[2024-02-09 16:46] LABS: MANUAL DIFF FLAG NO
[2024-02-09 16:48] LABS: Basophils Absolute Auto 0.1 X10*3/uL (0.0-0.2); Basophils Percent Auto 0.9 % (0-2); Eosinophils Absolute Auto 0.3 X10*3/uL (0.0-0.4); Eosinophils Percent Auto 4.7 % (0-4); Hematocrit 42.6 % (42.0-52.0); Hemoglobin 13.8 g/dl (14.0-18.0); Imm Gran Abs Auto 0.02 X10*3/uL (0.00-0.03); Imm Gran Pct Auto 0.3 % (0.0-0.4); Lymphocytes Absolute Auto 2.2 X10*3/uL (1.2-4.9); Lymphocytes Percent Auto 33.3 % (20-40); Mean Corpuscular HGB Conc 32.4 g/dl (31.0-36.0); Mean Corpuscular Hemoglobin 26.5 pg (27.0-33.0); Mean Corpuscular Volume 81.8 fL (80.0-98.0); Monocytes Absolute Auto 0.5 X10*3/uL (0.1-1.2); Monocytes Percent Auto 8.1 % (2-11); Neutrophils Absolute Auto 3.5 x10*3/uL (2.0-8.3); Neutrophils Percent Auto 52.7 % (45-73); Platelet Count 312 X10*3/uL (160-400); Red Blood Count 5.21 X10*6/uL (4.60-5.80); Red Cell Distribution Width 14.4 % (11.0-16.0); White Blood Count 6.6 X10*3/uL (4.8-10.8)
[2024-02-09 16:53] LABS: Prothrombin Time 12.7 SEC (11.1-13.3)
[2024-02-09 16:56] LABS: Partial Thromboplastin Time 29.6 SEC (26.0-36.8)
[2024-02-09 17:00] LABS: Alanine Aminotransferase 19 U/L (0-40); Albumin Level 4.5 g/dL (3.5-5.0); Alkaline Phosphatase 74 U/L (39-117); Anion Gap 10 (12-20); Aspartate Amino Transferase 14 U/L (5-37); Bilirubin Total 0.2 mg/dL (0.0-1.0); Blood Urea Nitrogen 16 mg/dL (9-16); Calcium 9.8 mg/dL (8.4-10.2); Carbon Dioxide 28 mmol/L (22-29); Chloride 106 mmol/L (96-108); Creatinine Clr Calc Pharmacy 154.3; Estimated Glomerular Filt Rate > 60; Glucose Random 120 mg/dL (60-115); Magnesium 1.9 mg/dL (1.6-2.6); Sodium 140 mmol/L (135-145); Total Protein 7.7 g/dL (6.5-8.0)
[2024-02-09 17:10] LABS: Troponin-I High Sensitivity < 2.7 ng/L (<3.5-35.0)
[2024-02-09 17:23] LABS: Influenza A PCR NEGATIVE (Negative); Influenza B PCR NEGATIVE (Negative); Resp Syncy Virus RNA Qual PCR NEGATIVE (Negative); SARS COV2 PCR INHOUSE NEGATIVE (Negative)
[2024-02-09 22:17] VITALS: BP 138/91; PULSE 56; O2SAT 99
[2024-02-09 22:19] VITALS: TEMP 36.8
[2024-02-09 22:28] VITALS: BP 138/91; PULSE 56; RESP 16; TEMP 36.8; O2SAT 99
== END 2024-02-09 22:33 | disposition home or self-care (01) ==
PROVIDERS: Physician Assistant Medical; Emergency Provider Internal Medicine; PCP Internal Medicine
DX: R07.9 Chest pain, unspecified (principal); Z82.49 Family history of ischemic heart disease and other diseases of the circulatory system; Z03.818 Encounter for observation for suspected exposure to other biological agents ruled out
CPT/HCPCS: 0241U; 71046; 80053; 83735; 84484; 85025; 85610; 85730; 93005; 99283; 99285

== ENCOUNTER → 2024-02-09 16:01 | Outpatient (BNV) | payer OTHER, SELFPAY | PROVIDERS: Emergency Provider Internal Medicine; PCP Internal Medicine; Visit Provider Internal Medicine | DX: R07.9 Chest pain, unspecified (principal) | CPT/HCPCS: 93010 ==

== ENCOUNTER 2024-08-16 15:30 | Outpatient (AMB) | payer OTHER, SELFPAY ==
[2024-08-16 15:40] VITALS: BP 136/72; PULSE 80; O2SAT 98; BMI 31.2
--- NOTE | 2024-08-16 15:40 | MHC.PC.OV ---
Vital Signs 08/16/24 15:40 Height 6 ft 9 in Weight 291 lb BMI 31.2 BP 136/72 Blood Pressure Location Lt brachial Position Sitting Pulse 80 Pulse Source Pulse Oximeter Pulse Oximetry (%) 98 Oxygen Delivery Method Room Air Intake Visit Reasons: swollen knee Allergies caffeine [CAFFEINE] Allergy (Severe, Verified 08/16/24 15:40) INTESTINAL BLEEDING Iodinated Contrast Media Allergy (Intermediate, Verified 08/16/24 15:40) Hives fish oil [FISH OIL] Allergy (Mild, Verified 08/16/24 15:40) RASH fish derived [fish] Allergy (Unknown, Verified 08/16/24 15:40) Unknown fluoxetine Allergy (Unknown, Verified 08/16/24 15:40) Unknown milk Allergy (Unknown, Verified 08/16/24 15:40) Unknown peanut [PEANUT] Allergy (Unknown, Verified 08/16/24 15:40) UNKNOWN Peanut Butter Flavor Allergy (Unknown, Verified 08/16/24 15:40) Unknown egg [EGGS] Adverse Reaction (Unknown, Verified 08/16/24 15:40) STOMACH CRAMPING Tobacco use date assessed: 08/16/24 Dental Screening Dental Screen Date: 11/30/23 HPI swollen knee HPI Details 44-year-old obese male with chronic low back pain impaired glucose tolerance generalized anxiety disorder coming in for follow-up. Last seen in November 2023. Review of the notes ER visit in January for chest pain left side radiating to the left arm intermittently workup has been negative and treated as musculoskeletal.swelling R knee in February 2024 deny fall or trauma. Patient has eczema and was asking for the lower potency triamcinolone cream. Also has been having right upper quadrant pain and with a known history of cholelithiasis advised to eat low-fat diet and will do another ultrasound of the gallbladder. Advised to get colon cancer screening as well as retesting on sugars. 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 Overweight (BMI 25.0-29.9) Allergic rhinitis Generalized anxiety disorder Chronic low back pain Surgical History History of umbilical hernia repair Family History Father Prostate cancer CVD (cardiovascular disease) Hypertension Mother Ovarian cancer Breast cancer Hypertension Maternal Grandmother Cancer Vulvar cancer Paternal Grandmother Diabetes Paternal Aunt Diabetes Paternal Uncle Diabetes Son Asthma Heart problem Family/Other FH: mental illness Substance abuse Social History Housing: Apartment Alcohol intake: current Comment: once a month 2-3 drinks Patient Tobacco Use Status: Former Tobacco user Tobacco use type: Cigarette Years Smoked: smokes marijuana (19 years old) e-Cigarette/Vaping Use: Never Used Second Hand Smoke Exposure: No Substance Use Type: Marijuana Current occupational status: employed Cognitive needs: No Hearing needs: No Vision needs: Yes Questionnaire PHQ-9 Over the last 2 weeks, how often have you been bothered by any of the following problems? 1. Little interest or pleasure in doing things: more than half the days 2. Feeling down, depressed, or hopeless: more than half the days 3. Trouble falling or staying asleep, or sleeping too much: not at all 4. Feeling tired or having little energy: not at all 5. Poor appetite or overeating: not at all 6. Feeling bad about yourself - or that you are a failure or have let yourself or your family down: not at all 7. Trouble concentrating on things, such as reading the newspaper or watching television: not at all 8. Moving or speaking so slowly that other people could have noticed. Or the opposite - being so fidgety or restless that you have been moving around a lot more than usual: not at all 9. Thoughts that you would be better off or of hurting yourself in some way: not at all Total score: 4 Depression Screening Interpretation: Positive Depression Screening Done: Yes Source: Developed by Drs. Narinder Gorman, Juvencio Wilcox and colleagues, with an educational ismael from [facility]. Thrive Questionnaire Date Thrive assessed: 11/30/23 KATHY-7 AMB Questionnaire KATHY-7 Date KATHY - 7 assessed: 11/30/23 Source: Developed by Drs. Narinder Gorman, Juvencio Wilcox and colleagues, with an educational ismael from [facility]. Physical exam (Primary Care) Vital Signs: Last Vital Signs Pulse 80 08/16/24 15:40 BP 136/72 08/16/24 15:40 Pulse Ox 98 08/16/24 15:40 Oxygen Delivery Method Room Air 08/16/24 15:40 BMI result Body Mass Index 31.2 Tobacco/Smoking Status: Tobacco use Status Tobacco use date assessed 08/16/24 08/16/24 15:42 Patient Tobacco Use Status Former Tobacco user 08/16/24 15:42 Tobacco use type Cigarette 08/16/24 15:42 e-Cigarette/Vaping Use Never Used 08/16/24 15:42 PHQ-9: PHQ-9 Score PHQ-9: Total score 4 08/16/24 16:05 Depression Screening Interpretation: Positive Thrive Assessment: Date of Thrive Assessment Date Thrive assessed 11/30/23 08/16/24 15:42 Const General: alert; No acute distress Eyes Conjunctivae: conjunctivae normal Resp Auscultation: clear to auscultation bilaterally Cardio Rate: regular rate Rhythm: regular rhythm GI Inspection: Yes normal to inspection Extrem General: Yes normal to inspection and No edema Office Procedures Flu Questionnaire Does the patient have a severe egg allergy?: No Does the patient have severe life threatening allergies?: No Does the patient have a fever or illness today?: No Has the patient ever had Guillain-Monroe Syndrome?: No Has the patient ever had any past reaction to a flu shot?: No Immunizations Fluarix Triv 4784-6854 (PF) 45 mcg (15 mcg x 3)/0.5 mL IM syringe Performing Provider: Clau Moseley MD [facility] Administered by: Elana Simon CMA on 08/16/24 16:18 Dose Route Admin Location Dispensed Lot Number Expiration Date 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561 Chronicity: acute Colon cancer screening Z12.11 Assessment & Plan Assessment & Plan (1) Obesity (BMI 30.0-34.9): Code(s): E66.9 - Obesity, unspecified Category: Medical Plan: Diet and exercise (2) Impaired glucose tolerance: Code(s): R73.02 - Impaired glucose tolerance (oral) Category: Medical Plan: Decrease the amount of carbohydrate intake, pasta, bread, rice and potatoes are all sugar and that is aside from all the sweet stuff, remember that fruits are good but they are Sweet also. (3) Gallstone: Code(s): K80.20 - Calculus of gallbladder without cholecystitis without obstruction Category: Medical Qualifiers: Cholecystitis presence: without cholecystitis Biliary obstruction: without biliary obstruction Qualified Code(s): K80.20 - Calculus of gallbladder without cholecystitis without obstruction Plan: Ultrasound of the gallbladder requested advised to eat low-fat diet. (4) Right knee pain: Code(s): M25.561 - Pain in right knee Category: Medical Qualifiers: Chronicity: acute Qualified Code(s): M25.561 - Pain in right knee Plan: X-ray of the knee requested presently no swelling and deny any pain (5) Colon cancer screening: Code(s): Z12.11 - Encounter for screening for malignant neoplasm of colon Category: Medical Plan: referral to gastro Orders: Orders XR knee RT 2V Today M25.561 - Pain in right knee Thyroid Stimulating Hormone Today R73.02 - Impaired glucose tolerance (oral) Free T4 (Free Thyroxine) Today R73.02 - Impaired glucose tolerance (oral) US abdomen complete Today K80.20 - Calculus of gallbladder without cholecystitis without obstruction, R79.89 - Other specified abnormal findings of blood chemistry Hemoglobin A1c Today R73.02 - Impaired glucose tolerance (oral) Comprehensive Met. Panel Today R73.02 - Impaired glucose tolerance (oral) Complete Blood Count Auto Diff Today R73.02 - Impaired glucose tolerance (oral) Lipid Panel Today E78.00 - Pure hypercholesterolemia, unspecified, R73.02 - Impaired glucose tolerance (oral) Referrals Gastroenterology Referral Z12.11 - Encounter for screening for malignant neoplasm of colon Medications: Changed From triamcinolone acetonide 0.5% 1 appl topical DAILY 45 grams 1RF L30.9 - Dermatitis, unspecified To triamcinolone acetonide 0.1% 1 appl topical DAILY 14 days 454 grams 1RF L30.9 - Dermatitis, unspecified
== END 2024-08-16 16:24 | disposition home or self-care (01) ==
PROVIDERS: PCP Internal Medicine; Visit Provider Internal Medicine
DX: R73.02 Impaired glucose tolerance (oral) (principal); Z68.31 Body mass index [BMI] 31.0-31.9, adult; E66.9 Obesity, unspecified; K80.20 Calculus of gallbladder without cholecystitis without obstruction; M25.561 Pain in right knee; Z12.11 Encounter for screening for malignant neoplasm of colon

== ENCOUNTER → 2024-08-16 15:30 | Outpatient (BNVA) | payer OTHER, SELFPAY | PROVIDERS: PCP Internal Medicine; Visit Provider Internal Medicine | DX: Z23 Encounter for immunization (principal); E66.9 Obesity, unspecified; R73.02 Impaired glucose tolerance (oral); K80.20 Calculus of gallbladder without cholecystitis without obstruction; M25.561 Pain in right knee | CPT/HCPCS: 90471; 90656; 96127; 99212 ==

== ENCOUNTER 2024-08-18 15:45 | Outpatient (REF) | payer OTHER, SELFPAY ==
[2024-08-18 15:57] LABS: MANUAL DIFF FLAG NO
[2024-08-18 17:07] LABS: Basophils Absolute Auto 0.1 X10*3/uL (0.0-0.2); Eosinophils Absolute Auto 0.4 X10*3/uL (0.0-0.4); Eosinophils Percent Auto 7.3 % (0-4); Hematocrit 43.5 % (42.0-52.0); Hemoglobin 14.1 g/dl (14.0-18.0); Imm Gran Abs Auto 0.01 X10*3/uL (0.00-0.03); Imm Gran Pct Auto 0.2 % (0.0-0.4); Lymphocytes Absolute Auto 2.3 X10*3/uL (1.2-4.9); Lymphocytes Percent Auto 38.8 % (20-40); Mean Corpuscular HGB Conc 32.4 g/dl (31.0-36.0); Mean Corpuscular Hemoglobin 26.6 pg (27.0-33.0); Mean Corpuscular Volume 81.9 fL (80.0-98.0); Mean Platelet Volume 9.5 fL (9.4-12.4); Monocytes Absolute Auto 0.5 X10*3/uL (0.1-1.2); Neutrophils Absolute Auto 2.6 x10*3/uL (2.0-8.3); Neutrophils Percent Auto 43.7 % (45-73); Platelet Count 307 X10*3/uL (160-400); Red Blood Count 5.31 X10*6/uL (4.60-5.80); White Blood Count 5.9 X10*3/uL (4.8-10.8)
[2024-08-18 17:17] LABS: Estimated Average Glucose 131 mg/dL; Hemoglobin A1C 156.5211 umol/L; Hemoglobin A1c % 6.2 % (<6.0); Total Hemoglobin (HGBA1C) 3539.8032 umol/L
[2024-08-18 17:40] LABS: Alanine Aminotransferase 28 U/L (0-40); Albumin Level 4.3 g/dL (3.5-5.0); Alkaline Phosphatase 68 U/L (39-117); Anion Gap 11 (12-20); Aspartate Amino Transferase 21 U/L (5-37); Bilirubin Total 0.4 mg/dL (0.0-1.0); Blood Urea Nitrogen 10 mg/dL (9-16); Calcium 8.9 mg/dL (8.4-10.2); Carbon Dioxide 28 mmol/L (22-29); Chloride 107 mmol/L (96-108); Cholesterol 144 mg/dL (<200); Estimated Glomerular Filt Rate > 60; Glucose Random 92 mg/dL (60-115); HDL Cholesterol 33 mg/dL (>40); LDL Cholesterol Calculated 84 mg/dL (<100); Potassium 3.9 mmol/L (3.3-5.1); Sodium 142 mmol/L (135-145); Total Protein 7.5 g/dL (6.5-8.0); Triglycerides 136 mg/dL (<150)
[2024-08-18 17:56] LABS: Free T4 (Free Thyroxine) 0.97 ng/dL (0.71-1.85); Thyroid Stimulating Hormone 1.29 uIU/mL (0.32-4.0)
== END 2024-08-18 15:46 | disposition home or self-care (01) ==
LOC: HO.XRAY 15:45
PROVIDERS: PCP Internal Medicine; Visit Provider Internal Medicine
DX: M25.561 Pain in right knee (principal); E78.00 Pure hypercholesterolemia, unspecified; R73.02 Impaired glucose tolerance (oral)
CPT/HCPCS: 36415; 73560; 80053; 80061; 83036; 84439; 84443; 85025

== ENCOUNTER 2024-08-30 09:58 | Outpatient (REF) | payer OTHER, SELFPAY | END 2024-08-30 09:59 | disposition home or self-care (01) | LOC: HO.US 09:58 | PROVIDERS: PCP Internal Medicine; Visit Provider Internal Medicine | DX: R79.89 Other specified abnormal findings of blood chemistry (principal); K80.20 Calculus of gallbladder without cholecystitis without obstruction | CPT/HCPCS: 76700 ==

== ENCOUNTER 2024-09-19 13:01 | Outpatient (AMB) | payer OTHER, SELFPAY ==
--- NOTE | 2024-09-19 13:04 | A.OFFVIS_ITS ---
Vital Signs 09/19/24 13:15 Height 6 ft 9 in Weight 289 lb BMI 31.0 BP 131/73 Blood Pressure Location Rt brachial Position Sitting Pulse 67 Intake Visit Reasons: Calculus of Gallbladder Intake Note: Patient referred by pcp Dr. Moseley for calculus of gallbladder. Denies pain. Patient c/o: nausea, discomfort. Abd US: 08-30-2024. [employer] Required: No Accompanied by: Self / Same As Patient Allergies caffeine [CAFFEINE] Allergy (Severe, Verified 09/19/24 13:14) INTESTINAL BLEEDING Iodinated Contrast Media Allergy (Intermediate, Verified 09/19/24 13:14) Hives fish oil [FISH OIL] Allergy (Mild, Verified 09/19/24 13:14) RASH fish derived [fish] Allergy (Unknown, Verified 09/19/24 13:14) Unknown fluoxetine Allergy (Unknown, Verified 09/19/24 13:14) Unknown milk Allergy (Unknown, Verified 09/19/24 13:14) Unknown peanut [PEANUT] Allergy (Unknown, Verified 09/19/24 13:14) UNKNOWN Peanut Butter Flavor Allergy (Unknown, Verified 09/19/24 13:14) Unknown egg [EGGS] Adverse Reaction (Unknown, Verified 09/19/24 13:14) STOMACH CRAMPING HPI Comments Details: Patient re presents here because of symptomatic biliary symptoms. He was seen a proximally 2 years ago and was treated conservatively at that time. Because of persistence and recurrence of symptoms, he now would like to have his gallbladd er were dressed. He describes right upper quadrant pain radiating around to his back after meals. He is unsure if he has fatty food intolerance per se. He is never been jaundiced before. Tolerating his diet usually, occasionally poorly stools. Chart was reviewed and patient evaluated. Prior umbilical hernia repair which has recurred. This was performed many years ago. 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 Overweight (BMI 25.0-29.9) Allergic rhinitis Generalized anxiety disorder Chronic low back pain Surgical History History of umbilical hernia repair Family History Father Prostate cancer CVD (cardiovascular disease) Hypertension Mother Ovarian cancer Breast cancer Hypertension Maternal Grandmother Cancer Vulvar cancer Paternal Grandmother Diabetes Paternal Aunt Diabetes Paternal Uncle Diabetes Son Asthma Heart problem Family/Other FH: mental illness Substance abuse Social History Housing: Apartment Alcohol intake: current Comment: once a month 2-3 drinks Patient Tobacco Use Status: Former Tobacco user Tobacco use type: Cigarette Years Smoked: smokes marijuana (19 years old) e-Cigarette/Vaping Use: Never Used Second Hand Smoke Exposure: No Substance Use Type: Marijuana Current occupational status: employed Cognitive needs: No Hearing needs: No Vision needs: Yes Physical Exam Vital Signs: Last Vital Signs Pulse 67 09/19/24 13:15 BP 131/73 09/19/24 13:15 BMI result Body Mass Index 31.0 Eyes Other: Anicteric Chest Other: Chest breath sounds bilaterally, HS 1 in 2 GI Other: Patient was examined standing. Very tall male. Abdomen soft, benign. Reducible umbilical hernia roughly 3 cm in size. Assessment & Plan Assessment & Plan (1) Recurrent biliary colic: Code(s): K80.50 - Calculus of bile duct without cholangitis or cholecystitis without obstruction Category: Surgical (2) Recurrent umbilical hernia: Code(s): K42.9 - Umbilical hernia without obstruction or gangrene Category: Surgical Plan Risks, benefits, alternatives of 1. Laparoscopic possible open cholecystectomy reviewed with the patient and included but not limited to bleeding, infection, recurrence of symptoms, numbness, pain, scarring, bowel or bile duct injury or leak 2. Repair recurrent umbilical hernia with similar risks benefits and alternatives and the patient wishes to proceed. All questions answered. Arrangements were made for this. Coding Level of Care Code New Pt Level 5 (86510) Diagnoses Recurrent biliary colic K80.50 Recurrent umbilical hernia K42.9
[2024-09-19 13:15] VITALS: BP 131/73; PULSE 67; BMI 31.0
== END 2024-09-19 13:29 | disposition home or self-care (01) ==
PROVIDERS: PCP Internal Medicine; Referring Provider Internal Medicine; Visit Provider Surgery
DX: K80.50 Calculus of bile duct without cholangitis or cholecystitis without obstruction (principal); K42.9 Umbilical hernia without obstruction or gangrene
CPT/HCPCS: 99204

== ENCOUNTER 2024-09-23 06:45 | Day surgery (SDC) | payer OTHER, SELFPAY ==
--- NOTE | 2024-09-21 14:39 | HO.ANESPROP2 ---
Documented by User: Latonia Stuart NP 09/21/24 14:41 HPI - Anesthesia Eval Consult details Narrative: 44yo M for Cholecystectomy Laparoscopic, Hernia Umbilical Recurrent PMFSH Active Problems Active Problems: All Active Problems Recurrent umbilical hernia (Acute) Recurrent biliary colic (Acute) Colon cancer screening (Acute) Right knee pain (Acute) Tic (Acute) Chest pain (Acute) Lower thoracic back pain (Acute) Palpitations (Acute) Gallstone (Acute) Allergic rhinitis (Acute) Frequency of micturition (Acute) Vitamin B12 deficiency (Acute) Iron deficiency (Acute) Impaired glucose tolerance (Acute) Frequency of micturition (Acute) Erectile dysfunction (Acute) Obesity (BMI 30.0-34.9) (Acute) Eczema (Acute) Anemia (Acute) Annual physical exam (Acute) Generalized anxiety disorder (Acute) Chronic low back pain (Acute) Eczema (Acute) Past Medical History Medical History Asthma 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 Overweight (BMI 25.0-29.9) Allergic rhinitis Generalized anxiety disorder Chronic low back pain Family History Family History Father Prostate cancer CVD (cardiovascular disease) Hypertension Mother Ovarian cancer Breast cancer Hypertension Maternal Grandmother Cancer Vulvar cancer Paternal Grandmother Diabetes Paternal Aunt Diabetes Paternal Uncle Diabetes Son Asthma Heart problem Family/Other FH: mental illness Substance abuse Surgical History Surgical History History of umbilical hernia repair Social History Social History Housing: Apartment Are you a primary date night caregiver to a significant other at home: No Do you presently have visiting nurse or other home services: No Alcohol intake: current Alcohol intake frequency: a few times a month Comment: Balance issues at times due to lower back pain Patient Tobacco Use Status: Former Tobacco user Tobacco use type: Cigarette Years Smoked: 16 Smoked in Last 30 Days: No e-Cigarette/Vaping Use: Never Used Second Hand Smoke Exposure: No Use of substances other than those prescribed or required for medical reasons: Yes Substance Use Type: Marijuana Substance Use Frequency: Daily Have you been hit, kicked, punched, or otherwise hurt by someone within the past year? If so, by whom?: No Are you DNR?: No Advance Directives: No Advance Directives Information Provided: No Advance Directives on File: No Recently lost weight without trying: No How much weight loss: Not applicable Eating poorly because of decreased appetite: No Nutrition screen score: 0 Nutrition Risks: No Nutritional Risk Poor oral hygiene: Yes (missing teeth throughout) Current occupational status: employed Cognitive needs: No Hearing needs: No Vision needs: Yes Meds Allergies Allergy/AdvReac Type Severity Reaction Status Date / Time caffeine [CAFFEINE] Allergy Severe INTESTINAL Verified 09/23/24 07:21 BLEEDING Iodinated Contrast Media Allergy Intermediate Anaphylaxis Verified 09/23/24 07:23 milk Allergy Intermediate Constipatio Verified 09/23/24 07:21 n peanut [PEANUT] Allergy Intermediate Constipatio Verified 09/23/24 07:21 n Peanut Butter Flavor Allergy Intermediate Constipatio Verified 09/23/24 07:21 n fish oil [FISH OIL] Allergy Mild RASH Verified 09/23/24 07:21 fish derived [fish] Allergy Unknown Unknown Verified 09/23/24 07:21 fluoxetine Allergy Unknown Unknown Verified 09/23/24 07:21 egg [EGGS] AdvReac Intermediate Diarrhea Verified 09/23/24 07:21 Exam Pertinent Lab Results Pertinent Lab Results: Laboratory Tests 08/18/24 15:55 WBC 5.9 Hgb 14.1 Hct 43.5 Plt Count 307 Sodium 142 Potassium 3.9 Chloride 107 Carbon Dioxide 28 BUN 10 Creatinine 0.91 Narrative Narrative: EKG 2023 Vent. 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 Overweight (BMI 25.0-29.9) Allergic rhinitis Generalized anxiety disorder Chronic low back pain Family History Family History Father Prostate cancer CVD (cardiovascular disease) Hypertension Mother Ovarian cancer Breast cancer Hypertension Maternal Grandmother Cancer Vulvar cancer Paternal Grandmother Diabetes Paternal Aunt Diabetes Paternal Uncle Diabetes Son Asthma Heart problem Family/Other FH: mental illness Substance abuse Surgical History Surgical History History of umbilical hernia repair History of Problems with Anesthesia: No Social History Social History Housing: Apartment Are you a primary date night caregiver to a significant other at home: No Do you presently have visiting nurse or other home services: No Alcohol intake: current Alcohol intake frequency: a few times a month Comment: Balance issues at times due to lower back pain Patient Tobacco Use Status: Former Tobacco user Tobacco use type: Cigarette Years Smoked: 16 Smoked in Last 30 Days: No e-Cigarette/Vaping Use: Never Used Second Hand Smoke Exposure: No Use of substances other than those prescribed or required for medical reasons: Yes Substance Use Type: Marijuana Substance Use Frequency: Daily Have you been hit, kicked, punched, or otherwise hurt by someone within the past year? If so, by whom?: No Are you DNR?: No Advance Directives: No Advance Directives Information Provided: No Advance Directives on File: No Recently lost weight without trying: No How much weight loss: Not applicable Eating poorly because of decreased appetite: No Nutrition screen score: 0 Nutrition Risks: No Nutritional Risk Poor oral hygiene: Yes (missing teeth throughout) Current occupational status: employed Cognitive needs: No Hearing needs: No Vision needs: Yes Meds Allergies Allergy/AdvReac Type Severity Reaction Status Date / Time caffeine [CAFFEINE] Allergy Severe INTESTINAL Verified 09/23/24 07:21 BLEEDING Iodinated Contrast Media Allergy Intermediate Anaphylaxis Verified 09/23/24 07:23 milk Allergy Intermediate Constipatio Verified 09/23/24 07:21 n peanut [PEANUT] Allergy Intermediate Constipatio Verified 09/23/24 07:21 n Peanut Butter Flavor Allergy Intermediate Constipatio Verified 09/23/24 07:21 n fish oil [FISH OIL] Allergy Mild RASH Verified 09/23/24 07:21 fish derived [fish] Allergy Unknown Unknown Verified 09/23/24 07:21 fluoxetine Allergy Unknown Unknown Verified 09/23/24 07:21 egg [EGGS] AdvReac Intermediate Diarrhea Verified 09/23/24 07:21 Exam Airway Mallampati Class: III TM Dist: >3cm Neck ROM: Full Loose/Missing/Broken Teeth: Yes and Upper Heart: RRR Lungs: CTA Assessment and Plan Assessment Anesthesia Assessment: Anesthesia Plan Discussed Final Anesthetic Review History of Problems with Anesthesia: No NPO: Yes ASA Class: II Final Preanesthetic Review: Meds/Allgs Chart Reviewed, Consent Obtained/Reviewed and Anes Risks/Benef Reviewed Patient Risk: Low Procedure Risk: Intermediate Anesthetic Plan Anesthetic Plan: GA Disposition: Standard PACU
--- NOTE | 2024-09-22 13:38 | MHC.SHP ---
Pre-Procedural Eval Section A - 24 Hr Update-Section A only Date of Service: 09/23/24 The patient is an INPATIENT: No Changes since office visit: No Cold of Flu in the past 2 weeks, No New Medical Problems, No Changes in Medication and No Patient answered all questions Section B - Complete if H&P > 30 days Chief Complaint: Calculus of bile duct without cholangitis or kajal Allergies: Allergies Allergy/AdvReac Type Severity Reaction Status Date / Time caffeine [CAFFEINE] Allergy Severe INTESTINAL Verified 09/19/24 13:14 BLEEDING Iodinated Contrast Media Allergy Intermediate Hives Verified 09/19/24 13:14 fish oil [FISH OIL] Allergy Mild RASH Verified 09/19/24 13:14 fish derived [fish] Allergy Unknown Unknown Verified 09/19/24 13:14 fluoxetine Allergy Unknown Unknown Verified 09/19/24 13:14 milk Allergy Unknown Unknown Verified 09/19/24 13:14 peanut [PEANUT] Allergy Unknown UNKNOWN Verified 09/19/24 13:14 Peanut Butter Flavor Allergy Unknown Unknown Verified 09/19/24 13:14 egg [EGGS] AdvReac Unknown STOMACH Verified 09/19/24 13:14 CRAMPING Review of Systems Sugical H&P ROS: Negative: Constitution, Cardiovascular, Respiratory, Neurological, Psychiatric, Hem-Onc, Allergic/Immunologic, Gastrointestinal, Genitourinary, Musculoskeletal, Integumentary, Endocrine and Eyes/Ears/Nose/Throat Exam Surgical H&P Exam: Normal: HEENT, Normal: Heart, Normal: Lungs, Normal: Extremities, Normal: Abdomen, Normal: Skin and Normal: Neurological Plan I have reviewed the history and physical and performed a pertinent physical examination on my patient. No changes have occurred unless specified. Time Spent With Patient Time: Total time managing care of this patient today ____ minutes.
[2024-09-23] VITALS (8 sets, daily range): BP systolic 112–157; BP diastolic 68–88; PULSE 56–71; RESP 15–18; TEMP 36.7–37.1; O2SAT 92–98; BMI 31.3
[2024-09-23] MEDS: Albuterol Sulfate (0.083%) 2.5 MG/3 ML VIAL.NEB INHALE (07:58)
[2024-09-23] MEDS: Lactated Ringers 1,000 ML 100 ML IVCONT (08:32)
--- NOTE | 2024-09-23 09:44 | W.PM.OPN ---
Operative Note Operative Note Date of Service: 09/23/24 Narrative: Preoperative diagnosis: [] 1. Symptomatic recurrent biliary colic 2. Incarcerated recurrent umbilical hernia Postop diagnosis: [] The same Procedure [] 1. Laparoscopic cholecystectomy 2. Open repair of incarcerated umbilical hernia with Bard mesh Surgeon: [] Franklyn Division Controller: [] Type of Anesthesia: [] General Indication for surgery: [] Very corpulent abdomen. Incarcerated umbilical hernia with omental contents. Patient had had a prior repair at an outside facility which was done so primarily. No prior mesh was demonstrated. Prolene sutures from the recurrence were identified. Patient had a very corpulent abdomen. Gallbladder had moderate omental adhesions to it. Intrahepatic gallbladder. Findings: [] Patient brought to the operating room, placed on operative table supine position, after an adequate level general anesthesia was induced, the patient's abdomen which was quite large was prepped and draped in usual sterile fashion using a supraumbilical incision from the prior scar from the patient's previous surgery, this carried down through skin, subcutaneous tissue, were marked cicatrization from the patient's previous surgeon was identified. Dissection down to fascia demonstrated incarcerated umbilical hernia. This was dissected from the posterior aspect of the umbilicus, circumferentially dissected down the fascia, and sac opened. Incarcerated omental contents were from the sac and reduced. Fascia margins were circumferentially cleared. Burgos technique was then used to insufflate abdominal cavity to 15 mm of CO2. Upper midline and right subcostal ports were placed under direct laparoscopic view, the patient placed in reverse Trendelenburg position, tilted to the left. Findings were as noted above. Gallbladder was grasped using laparoscopic graspers and retracted superiorly and laterally. Omental adhesions swept off the gallbladder with the hilum was approached. Cystic artery and cystic duct were each identified, circumferentially skeletonized, traced directly into the gallbladder, and critical view obtained. Each was clipped proximally x2, distally x1, and transected. Gallbladder was then cauterized in the gallbladder fossa using Bovie. Specimen was placed in an Endo-Catch bag, a retrieved through the umbilical port. Abdominal cavity was copiously irrigated secured hemostasis. All ports removed under direct laparoscopic view. Wounds were closed in the following manner; umbilical port which was the site of the hernia was closed using a appropriately sized Bard mesh. The superficial layer of the mesh was circumferentially sutured to the surrounding fascia using interrupted 0 Ethibond suture. Defect measured roughly 4 cm in size. Subcutaneous tissue was reapproximated using interrupted 3-0 Vicryl sutures and skin was closed using interrupted inverted dermal 3-0 Vicryl sutures. The remaining Skin wounds/port sites were closed using interrupted inverted dermal 4-0 Vicryl sutures. Each wound was infiltrated at the beginning at the end of the case with 0.5% Marcaine/1% lidocaine. Sponge, needle, and instrument counts reported correct. Patient tolerated the procedure well and emerged from anesthesia stable condition. EBL minimal
[2024-09-23] MEDS: oxyCODONE HCl Immed Release 5 MG TABLET PO (10:21)
== END 2024-09-23 11:53 | disposition home or self-care (01) ==
PROVIDERS: PCP Internal Medicine; Visit Provider Surgery
PROC: 0FT44ZZ Resection of Gallbladder, Percutaneous Endoscopic Approach (ICD-10-PCS; CPT 47562; principal; 2024-09-23 08:50)
PROC: (CPT 49616; 2024-09-23 08:50)
DX: K42.0 Umbilical hernia with obstruction, without gangrene (principal); E65 Localized adiposity; K80.50 Calculus of bile duct without cholangitis or cholecystitis without obstruction; K66.0 Peritoneal adhesions (postprocedural) (postinfection); Q44.1 Other congenital malformations of gallbladder; E66.9 Obesity, unspecified; J45.909 Unspecified asthma, uncomplicated; Z68.31 Body mass index [BMI] 31.0-31.9, adult; F41.9 Anxiety disorder, unspecified; G89.29 Other chronic pain; M54.50 Low back pain, unspecified; Z88.8 Allergy status to other drugs, medicaments and biological substances; Z91.012 Allergy to eggs; Z91.011 Allergy to milk products; Z91.010 Allergy to peanuts; Z91.041 Radiographic dye allergy status; Z87.891 Personal history of nicotine dependence; Z98.890 Other specified postprocedural states
CPT/HCPCS: 49616; 47562; 88302; 88304; 94640; C1781; J0131; J0690; J1100; J1885; J2003; J2250; J2405; J2704; J2795; J3010

== ENCOUNTER → 2024-09-23 06:45 | Outpatient (BNV) | payer OTHER, SELFPAY | PROVIDERS: PCP Internal Medicine; Visit Provider Surgery | DX: K80.50 Calculus of bile duct without cholangitis or cholecystitis without obstruction (principal); K42.9 Umbilical hernia without obstruction or gangrene | CPT/HCPCS: 47562 ==

== ENCOUNTER 2024-10-03 11:02 | Outpatient (AMB) | payer OTHER, SELFPAY ==
--- NOTE | 2024-10-03 11:06 | MHC.OFFVIS ---
Vital Signs 10/03/24 11:07 Height 6 ft 9 in Weight 279 lb 1.683 oz BMI 29.9 Intake Visit Reasons: S/P lap kajal, umbilical hernia Intake Note: Patient in follow up s/p lap kajal, umbilical hernia. Voice Systems Engineer Required: No Accompanied by: Self / Same As Patient Allergies caffeine [CAFFEINE] Allergy (Severe, Verified 10/03/24 11:09) INTESTINAL BLEEDING Iodinated Contrast Media Allergy (Intermediate, Verified 10/03/24 11:09) Anaphylaxis milk Allergy (Intermediate, Verified 10/03/24 11:09) Constipation peanut [PEANUT] Allergy (Intermediate, Verified 10/03/24 11:09) Constipation Peanut Butter Flavor Allergy (Intermediate, Verified 10/03/24 11:09) Constipation fish oil [FISH OIL] Allergy (Mild, Verified 10/03/24 11:09) RASH fish derived [fish] Allergy (Unknown, Verified 10/03/24 11:09) Unknown fluoxetine Allergy (Unknown, Verified 10/03/24 11:09) Unknown egg [EGGS] Adverse Reaction (Intermediate, Verified 10/03/24 11:09) Diarrhea HPI Comments Details: Patient presents for follow-up. He is having minimal incisional discomfort. He is slowly advancing his diet. He is also slowly increasing his activity level. 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 Overweight (BMI 25.0-29.9) Allergic rhinitis Generalized anxiety disorder Chronic low back pain Surgical History Hx laparoscopic cholecystectomy (09/23/24) History of umbilical hernia repair Family History Father Prostate cancer CVD (cardiovascular disease) Hypertension Mother Ovarian cancer Breast cancer Hypertension Maternal Grandmother Cancer Vulvar cancer Paternal Grandmother Diabetes Paternal Aunt Diabetes Paternal Uncle Diabetes Son Asthma Heart problem Family/Other FH: mental illness Substance abuse Social History Housing: Apartment Are you a primary healthcare corporate account director to a significant other at home: No Do you presently have visiting nurse or other home services: No Alcohol intake: current Alcohol intake frequency: a few times a month Comment: Balance issues at times due to lower back pain Patient Tobacco Use Status: Former Tobacco user Tobacco use type: Cigarette Years Smoked: 16 e-Cigarette/Vaping Use: Never Used Second Hand Smoke Exposure: No Substance Use Type: Marijuana Current occupational status: employed Cognitive needs: No Hearing needs: No Vision needs: Yes Physical Exam Vital Signs: BMI result Body Mass Index 29.9 GI Other: Abdomen is soft. All wounds clean dry and intact healing very well Assessment & Plan Assessment & Plan (1) Status post laparoscopic cholecystectomy: Code(s): Z90.49 - Acquired absence of other specified parts of digestive tract Category: Medical (2) Status post umbilical hernia repair, follow-up exam: Code(s): Z09 - Encounter for follow-up examination after completed treatment for conditions other than malignant neoplasm Category: Medical Plan Patient was been given local instructions including avoiding strenuous activities because he also had a hernia repair and will otherwise follow-up p.r.n.. All questions answered. Coding Level of Care Code Global (20323) Diagnoses Status post laparoscopic cholecystectomy Z90.49 Status post umbilical hernia repair, follow-up exam Z09
[2024-10-03 11:07] VITALS: BMI 29.9
== END 2024-10-03 11:11 | disposition home or self-care (01) ==
PROVIDERS: PCP Internal Medicine; Visit Provider Surgery
DX: Z90.49 Acquired absence of other specified parts of digestive tract (principal); Z09 Encounter for follow-up examination after completed treatment for conditions other than malignant neoplasm
CPT/HCPCS: 99024

== ENCOUNTER → 2024-10-03 11:02 | Outpatient (BNVA) | payer OTHER, SELFPAY | PROVIDERS: PCP Internal Medicine; Visit Provider Surgery | DX: Z09 Encounter for follow-up examination after completed treatment for conditions other than malignant neoplasm (principal); Z90.49 Acquired absence of other specified parts of digestive tract | CPT/HCPCS: 99212 ==

== ENCOUNTER 2024-11-11 07:36 | Outpatient (REF) | payer SELFPAY ==
--- NOTE | ~2024-11-11 | XR_ITS ---
EXAMINATION: XR KNEE 1-2 VIEWS RIGHT HISTORY: M25.569 - Pain in unspecified knee COMPARISON: Comparison is made with the prior examination dated 08/18/2024. FINDINGS: Standing AP views of both knees and an additional sunrise patellar view of the right knee are submitted. Osseous mineralization is normal. Again seen is fragmentation of the lateral aspect of the patella without change. There is a bipartite left patella. There is mild narrowing of the medial compartment. There is a linear metallic foreign body in the lateral soft tissues of the left knee. XR/XR knee RT 2V IMPRESSION: Fragmentation of the lateral aspect of the patella which may represent a multipartite patella versus old trauma. A similar appearance was described on a report from an examination dated 02/24/2013 which is not available for direct comparison. Electronically signed by: Narinder Mondragon MD 11/14/2024 09:30 AM BUNNY
== END 2024-11-11 07:37 | disposition home or self-care (01) ==
LOC: HO.HOSX 07:36
PROVIDERS: Visit Provider Physician Assistant
DX: M17.11 Unilateral primary osteoarthritis, right knee (principal); M25.561 Pain in right knee; Q74.1 Congenital malformation of knee
CPT/HCPCS: 73560; 99202

== ENCOUNTER 2024-11-11 10:50 | Outpatient (AMB) | payer OTHER, SELFPAY ==
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
[2024-11-11 11:14] VITALS: BMI 29.9
== END 2024-11-11 11:32 | disposition home or self-care (01) ==
PROVIDERS: PCP Internal Medicine; Visit Provider Physician Assistant
DX: M17.11 Unilateral primary osteoarthritis, right knee (principal); Q74.1 Congenital malformation of knee
CPT/HCPCS: 99203

== ENCOUNTER → 2024-11-11 11:00 | Outpatient (BNV) | payer SELFPAY | PROVIDERS: Visit Provider Radiology Diagnostic Radiology | DX: M25.561 Pain in right knee (principal) | CPT/HCPCS: 73560 ==

== ENCOUNTER 2024-11-28 12:25 | Outpatient (RCR) | payer OTHER, SELFPAY ==
--- NOTE | 2024-11-28 13:53 | MHC.PT.EP ---
[facility] [place] [facility] [place] [facility] [place] [facility] [address] [phone] F: [phone] F: [phone] F: [phone] F: [phone] Physical Therapy Plan of Care Date of Evaluation: 11/28/24 Date of Surgery: Diagnosis: unilateral primary OA, R knee patellofemoral arthritis of R knee Assessment: 44 y/o male referred to PT with R knee OA. S/s consistent with knee OA, PFPS, and ? meniscal involvement. Reports pain and difficulty with walking, stairs, rollerblades, and squatting. Examination shows decreased hip/knee strength, good hip/knee ROM, mild swelling R knee, mildly hypomobile patella mobility, pain, and impaired gait pattern. Recommend PT 2x/week for 5 weeks to address impairments, implement HEP, and optimize functional mobility. Frequency and Duration: The patient will be seen 2x/week for 5 weeks Short Term Goals: 3 weeks I with HEP Pt will be able to perform 2x10 bridges with neutral pelvis and pain < 3/10 Director Hedis Goals: 5 weeks I with HEP and self management of sx Pt will be able to ascend/ descend stairs with pain < 3/10 Improve LEFS to 30/80 (IR 21/80) Treatment Plan: Modalities to reduce pain, spasms and effusion. Manual therapy to restore motion and function. Therapeutic exercise to improve strength and flexibility. Neuromuscular re-education for posture and balance. Therapeutic activities to return to functional activities of daily living. Electronically signed by: Tatiana Durbin PT Please sign and return to therapist. Thank you for your referral.
--- NOTE | 2024-12-15 08:00 | MHC.PT.DC ---
[facility] [place] Office [place] Office [place] Office [address] [facility] [phone] F: [phone] F: [phone] F: [phone] F: [phone] Physical Therapy Discharge Report Diagnosis: unilateral primary OA, R knee patellofemoral arthritis of R knee Date of Surgery: Date of Evaluation: 11/28/24 Date of Discharge: 12/15/24 Treatments to Date: 1 Cancellations to Date: 0 No Shows to Date: 3 Discharge Status: Visit Non-compliance Discharge Summary: D/c d/t noncompliance with scheduling policy with 3 consecutive no show visits Electronically signed by: Tatiana Durbin PT Please sign and return to therapist. Thank you for your referral.
== END 2024-12-15 08:01 | disposition home or self-care (01) ==
LOC: HO.PT 12:25
PROVIDERS: PCP Internal Medicine; Visit Provider Physician Assistant
DX: M17.11 Unilateral primary osteoarthritis, right knee (principal)
CPT/HCPCS: 97110; 97161

== ENCOUNTER 2025-01-27 15:37 | Outpatient (AMB) | payer OTHER, SELFPAY ==
--- NOTE | 2025-01-27 15:44 | A.OFFVIS_ITS ---
Vital Signs 01/27/25 15:54 Height 6 ft 9 in Weight 278 lb BMI 29.8 BP 138/94 H Blood Pressure Location Rt brachial Position Sitting Pulse 62 Pulse Source Pulse Oximeter Pulse Oximetry (%) 97 Oxygen Delivery Method Room Air Intake Visit Reasons: colo screening Intake Note: NEW PATIENT for initial colo screening. Pt previously seen in ED 08/2024 for RUQ pain. CC; CO occasional diarrhea and RUQ discomfort. Pt has been making adjustments to diet and lifestyle s/p cholecystectomy. Pt is trying to get what probiotics he can from the [employer]biotic beverages as he is lactose intolerant and cannot get his natural probiotics from yogurt or other forms. One colo done in his twenties per dx of Diverticulitis. Marine Engineer Required: No Accompanied by: Self / Same As Patient Allergies caffeine [CAFFEINE] Allergy (Severe, Verified 01/27/25 15:50) INTESTINAL BLEEDING Iodinated Contrast Media Allergy (Intermediate, Verified 01/27/25 15:50) Anaphylaxis milk Allergy (Intermediate, Verified 01/27/25 15:50) Constipation peanut [PEANUT] Allergy (Intermediate, Verified 01/27/25 15:50) Constipation Peanut Butter Flavor Allergy (Intermediate, Verified 01/27/25 15:50) Constipation fish oil [FISH OIL] Allergy (Mild, Verified 01/27/25 15:50) RASH fish derived [fish] Allergy (Unknown, Verified 01/27/25 15:50) Unknown fluoxetine Allergy (Unknown, Verified 01/27/25 15:50) Unknown egg [EGGS] Adverse Reaction (Intermediate, Verified 01/27/25 15:50) Diarrhea sun Allergy (Uncoded 01/27/25 15:50) Rash HPI HPI colo screening: Details: 44 year old? male here today for pre colonoscopy screening.? Patient was sent to us by his PCP.? 1st colonoscopy in his 20s for diverticulitis.? Patient denies any gastrointestinal symptoms in the past or at present.? Patient had cholecystectomy and umbilical hernia repair in September. Occasional abdominal pain and bloating depending on what he eats. Patient is avoiding lactose and food high in fat. Denies any personal or family history of gastrointestinal disease, colon polyps, or CRC.? Denies history of difficulty with sedation or anesthesia in the past.? Negative for history of sleep apnea.? Denies any history of cardiac, renal, pulmonary, or hepatic disease.?? No history of infectious? diseases like hepatitis A, B, C, HIV or tuberculosis.? 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 Overweight (BMI 25.0-29.9) Allergic rhinitis Generalized anxiety disorder Chronic low back pain Surgical History (Updated 01/27/25 @ 16:00 by ROSE Velez) Hx of colonoscopy Hx laparoscopic cholecystectomy (09/23/24) History of umbilical hernia repair Family History Father Prostate cancer CVD (cardiovascular disease) Hypertension Mother Ovarian cancer Breast cancer Hypertension Maternal Grandmother Cancer Vulvar cancer Paternal Grandmother Diabetes Paternal Aunt Diabetes Paternal Uncle Diabetes Son Asthma Heart problem Family/Other FH: mental illness Substance abuse Social History (Updated 01/27/25 @ 15:51 by ROSE Velez) Housing: Apartment Are you a primary manager career to a significant other at home: No Do you presently have visiting nurse or other home services: No Alcohol intake: current Alcohol intake frequency: a few times a month Comment: Balance issues at times due to lower back pain Patient Tobacco Use Status: Former Tobacco user Tobacco use type: Cigarette Years Smoked: 16 e-Cigarette/Vaping Use: Never Used Second Hand Smoke Exposure: No Use of substances other than those prescribed or required for medical reasons: Yes Substance Use Type: Marijuana Current occupational status: employed Cognitive needs: No Hearing needs: No Vision needs: Yes Physical Exam Vital Signs: Last Vital Signs Pulse 62 01/27/25 15:54 BP 138/94 H 01/27/25 15:54 Pulse Ox 97 01/27/25 15:54 Oxygen Delivery Method Room Air 01/27/25 15:54 BMI result Body Mass Index 29.8 Assessment & Plan Assessment & Plan (1) Colon cancer screening: Code(s): Z12.11 - Encounter for screening for malignant neoplasm of colon Category: Medical Plan Patient denies any GI, cardiac or respiratory symptoms.? Occasional abdominal discomfort and bloating depending on what he eats. Status post cholecystectomy. Denies any issues with anesthesia in the past.? Patient however reports that during last surgery his oxygen level dropped down and they had to give him albuterol treatment. Patient will call his PCP and ask for albuterol inhaler so he can have it at hand. Recommend pulmonology consultation. Denies any history of sleep apnea.? No history infectious diseases in the past or present.? Not on any anticoagulation therapy.? No family or personal history of colon cancer or polyps.? Patient denies melena, hematochezia, unintentional weight loss or ribbon like stools.? Discussed at length the pre-procedure,? prep, diet & medications as well as what to expect prior, during and after the procedure.?? Stressed the importance of good bowel prep.? Recommended the use of Vaseline or Calmoseptine OTC & baby wipes with bowel movements to promote comfort.? ?Patient verbalizes understanding and agrees to plan of care.? He was given the opportunity to ask questions and all questions answered.? We will see him after the procedure.? Orders: Referrals Pulmonology Referral R06.02 - Shortness of breath, R06.2 - Wheezing Medications: New polyethylene glycol 3350 (Miralax) As directed by gastroenterology department at [facility] 238 grams PO ONCE 238 grams 0RF Z12.11 - Encounter for screening for malignant neoplasm of colon bisacodyl (Dulcolax (bisacodyl)) take 4 tabs at noon the day before your colonoscopy 20 mg (4 x 5 mg) PO ONCE 4 tabs 0RF 1 day Z12.11 - Encounter for screening for malignant neoplasm of colon Coding Level of Care Code New Pt Level 3 (06076) Diagnoses Colon cancer screening Z12.11 Time Spent (min) 40 Comment 30 minutes spent with patient and additional 10 minutes spent reviewing his records
[2025-01-27 15:54] VITALS: BP 138/94; PULSE 62; O2SAT 97; BMI 29.8
== END 2025-01-27 16:18 | disposition home or self-care (01) ==
LOC: HO.HGI 15:37
PROVIDERS: PCP Internal Medicine; Visit Provider Nurse Practitioner Family
DX: Z01.818 Encounter for other preprocedural examination (principal); Z12.11 Encounter for screening for malignant neoplasm of colon
CPT/HCPCS: 99202

== ENCOUNTER → 2025-01-27 15:37 | Outpatient (BNVA) | payer OTHER, SELFPAY | PROVIDERS: PCP Internal Medicine; Visit Provider Nurse Practitioner Family | DX: Z12.11 Encounter for screening for malignant neoplasm of colon (principal) | CPT/HCPCS: 99202 ==

== ENCOUNTER 2025-03-27 15:09 | Outpatient (AMB) | payer OTHER, SELFPAY ==
[2025-03-27 15:10] VITALS: BP 110/77; PULSE 66; RESP 16; O2SAT 99; BMI 28.8
--- NOTE | 2025-03-27 15:10 | A.OFFVIS_ITS ---
Vital Signs 03/27/25 15:10 Height 6 ft 9 in Weight 268 lb 15.423 oz BMI 28.8 BP 110/77 Blood Pressure Location Lt brachial Position Sitting Respiration 16 Pulse 66 Pulse Source Pulse Oximeter Pulse Oximetry (%) 99 Oxygen Delivery Method Room Air Intake Visit Reasons: wheezing/ SOB Dry Goods Inspector Required: No Accompanied by: Self / Same As Patient Allergies caffeine (CAFFEINE) Allergy (Severe, Verified 03/27/25 15:49) INTESTINAL BLEEDING Iodinated Contrast Media Allergy (Intermediate, Verified 03/27/25 15:49) Anaphylaxis milk Allergy (Intermediate, Verified 03/27/25 15:49) Constipation peanut (PEANUT) Allergy (Intermediate, Verified 03/27/25 15:49) Constipation Peanut Butter Flavor Allergy (Intermediate, Verified 03/27/25 15:49) Constipation fish oil (FISH OIL) Allergy (Mild, Verified 03/27/25 15:49) RASH fish derived (fish) Allergy (Unknown, Verified 03/27/25 15:49) Unknown fluoxetine Allergy (Unknown, Verified 03/27/25 15:49) Unknown egg (EGGS) Adverse Reaction (Intermediate, Verified 03/27/25 15:49) Diarrhea sun Allergy (Uncoded 03/27/25 15:49) Rash Medication List - Last Reconciled 03/27/25 by Deep Ji MD bisacodyl (Dulcolax (bisacodyl)) 20 mg (4 x 5 mg) PO ONCE 1 day polyethylene glycol 3350 (Miralax) 238 grams PO ONCE Do you need a note to return to daycare/school/sports/work: No HPI HPI wheezing/ SOB: Details: THIS GENTLEMAN IS 45 YEARS OLD, 6 FT 9 IN TALL, REFERRED FOR PULMONARY EVALUATION, BECAUSE OF HIS COMPLAINT OF INTERIM DID NOT BOUTS OF SHORTNESS OF BREATH AND WHEEZING. HE IS NON CIGARETTE SMOKER. SMOKES WEED 2 TO 3 TIMES A DAY BUT IS TRYING TO CUT DOWN, BECAUSE EACH TIME HE SMOKES HE GETS COUGH . HE HAS ABOVE SYMPTOMS FOR THE LAST MANY YEARS, BUT HE WAS MADE AWARE ACTUALLY IN SEPTEMBER OF THIS YEAR WHEN HE HAD CHOLECYSTECTOMY IN THE HOSPITAL. HE CLAIMS THAT HE HAS TENDENCY TO GET NASAL CONGESTION AND COUGH WHEN EXPOSED TO OUTDOOR TRIGGERS SUCH POLLENS GROSS IS STEARNS IN [place], [place] AND LEAVES IN [place]. AND HE IS ALSO ALLERGIC TO CATS AND DOGS. HE GETS SO SLIGHT SHORTNESS OF BREATH WHEN HE WALKS UP HILL OR CLIMBS MORE THAN 1 FLIGHT OF STAIRS, IT IS RELIEVED BY REST, ALSO HAS SHORTNESS OF BREATH WHEN HE TRIES TO SING , HE IS PART OF A SINGING BAND WHICH IS INVITED EVERY NOW AND THEN TO AREAS THE OCCASIONS SUCH JAIN , AND PUBLIC EVENTS. HE IS SINGLE AT THIS TIME. WAS LIVING WITH A GIRLFRIEND AND HAS A SON , WHO VISITS HIM OFF AND ON HAS A CAT, BUT KEEPS THE CAT OUT OF THE HOUSE. 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 HE PLAYS VOLLEYBALL OFF AND ON, AND ON ACCOUNT OF GETTING SHORT OF BREATH HE IS NOT VERY. ACTIVE IN THIS SPORT. [facility] . 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 Overweight (BMI 25.0-29.9) Allergic rhinitis Generalized anxiety disorder Chronic low back pain Surgical History Hx of colonoscopy Hx laparoscopic cholecystectomy (09/23/24) History of umbilical hernia repair Family History Father Prostate cancer CVD (cardiovascular disease) Hypertension Mother Ovarian cancer Breast cancer Hypertension Maternal Grandmother Cancer Vulvar cancer Paternal Grandmother Diabetes Paternal Aunt Diabetes Paternal Uncle Diabetes Son Asthma Heart problem Family/Other FH: mental illness Substance abuse Social History Housing: Apartment Are you a primary career services representative to a significant other at home: No Do you presently have visiting nurse or other home services: No Alcohol intake: current Alcohol intake frequency: a few times a month Comment: Balance issues at times due to lower back pain Patient Tobacco Use Status: Former Tobacco user Tobacco use type: Cigarette Years Smoked: 16 e-Cigarette/Vaping Use: Never Used Second Hand Smoke Exposure: No Substance Use Type: Marijuana Current occupational status: employed Cognitive needs: No Hearing needs: No Vision needs: Yes Review of Systems Const All systems reviewed & are unremarkable except as noted in HPI and below Eyes Reports no additional complaints ENT Reports nasal congestion (OFF AND ON ) Card Denies syncope, Denies irregular heart rhythm and Denies leg edema Resp Reports as per HPI GI Reports constipation Reports no additional complaints Musc Reports back pain and Reports arthralgias (KNEES PAIN) Skin/Breast Reports system reviewed and no additional complaints, except as documented Neuro Reports no additional complaints and Denies syncope Psych Reports anxiety and Reports depression (MILD) Endo Reports no additional complaints Ace/Lymph Reports no additional complaints Aller/Immun Reports no additional complaints Physical Exam Vital Signs: Last Vital Signs Pulse 66 03/27/25 15:10 Resp 16 03/27/25 15:10 BP 110/77 03/27/25 15:10 Pulse Ox 99 03/27/25 15:10 Oxygen Delivery Method Room Air 03/27/25 15:10 BMI result Body Mass Index 28.8 6 FT 9 IN TALL , WEIGHT IS PROPORTIONATE TO HIS HEIGHT. LOOKS HEALTHY. Const General: healthy appearing, comfortable, no acute distress, alert and awake Orientation/consciousness: patient oriented x3 HEENT Head: Yes normal to inspection General nose exam: No nasal polyps present and No nasal discharge present Face and sinus: Yes sinuses nontender Mouth: oropharynx normal Throat: Yes posterior oropharynx normal Eyes General: appearance normal, both eyes and all related structures Neck Neck: Yes normal visual inspection, Yes no lymphadenopathy, Yes trachea midline and Yes no JVD Thyroid: Thyroid normal Chest Chest palpation & inspection: normal inspection of the chest, normal palpation of entire chest wall and no tenderness Resp Effort & Inspection: normal respiratory effort, able to speak in complete sentences, no audible wheezes and no cough Auscultation: clear to auscultation bilaterally Cardio Palpation: normal PMI Rate: regular rate Rhythm: regular rhythm Heart sounds: no gallops and no murmurs Peripheral pulses: Peripheral pulses 2+ throughout GI Palpation (GI): Soft to palpation, nontender, No hepatosplenomegaly present and no masses Auscultation: normal bowel sounds Back/Spine/Pelvis Thoracic/Lumbar Spine: thoracic and lumbar spine normal to inspection Skin General skin exam: no rashes or lesions noted Neuro General: patient oriented x3 and no focal motor deficits Cranial nerves: Yes CN's II-XII intact bilaterally Extrem General: Yes normal to inspection, Yes no clubbing, cyanosis or edema and Yes no calf tenderness Psych Appearance: grossly normal and well kempt Speech and movement: Normal speech and movement present Assessment & Plan Assessment & Plan (1) Asthma: Comment: PER PATIENT HE DOES HAVE MILD INTERMITTENT BRONCHIAL ASTHMA, MOSTLY DUE TO ENVIRONMENTAL ALLERGIES. Code(s): J45.909 - Unspecified asthma, uncomplicated Category: Medical Plan: CBC WITH DIFF, IMMUNOGLOBULIN-E ORDERED. PFT ORDERED. PRESCRIBE ALBUTEROL HFA TO KEEP ON HAND AND USE 1 OR 2 SPRAYS Q 4-6 HOURS BUT ONLY IF HE HAS ATTACK OF WHEEZING OR SHORTNESS OF BREATH FURTHER ADJUSTMENT IN THE TREATMENT REGIMEN WILL BE MADE AFTER PULMONARY FUNCTION TEST IS COMPLETED . (2) Allergic rhinitis: Comment: MILD INTERMITTENT NASAL CONGESTION ALSO DUE TO ENVIRONMENTAL ALLERGIES. Code(s): J30.9 - Allergic rhinitis, unspecified Category: Medical Plan: WORKUP UNDER BRONCHIAL ASTHMA. BEEN DISCUSSED WITH THE PATIENT AND ADVISE THAT HE SHOULD AVOID EXPOSURE TO THE TRIGGERS SUCH CATS AND DOGS, AND OTHER ENVIRONMENTAL AGENTS SUCH GROSS IS STEARNS SMOKING US (3) Environmental and seasonal allergies: Comment: HE CLAIMS THAT HE EXPERIENCES INCREASED ALLERGY SYMPTOMS IN SPRING AND F[place], HE ALSO CLAIMS THAT HE FEELS THAT HE HAS ALLERGY TO GROSS IS [place]DELIA STEARNS. Code(s): J30.89 - Other allergic rhinitis Category: Medical Plan: ADVISED TO AVOID EXPOSURE TO THE KNOWN ENVIRONMENTAL TRIGGERS. MAY USE OTC ANTIHISTAMINIC AGENT SUCH CLARITIN OR ZYRTEC 10 MG ONCE A DAY P.R.N.. Orders: Orders Complete Blood Count Auto Diff Today J30.9 - Allergic rhinitis, unspecified, J45.909 - Unspecified asthma, uncomplicated Immunoglobulin E Today J30.9 - Allergic rhinitis, unspecified, J45.909 - Unspecified asthma, uncomplicated Coding Level of Care Code New Pt Level 4 (51191) Diagnoses Asthma J45.909 Allergic rhinitis J30.9 Environmental and seasonal allergies J30.89
== END 2025-03-27 15:46 | disposition home or self-care (01) ==
LOC: HO.HPS 15:09
PROVIDERS: PCP Internal Medicine; Visit Provider Internal Medicine
DX: J45.909 Unspecified asthma, uncomplicated (principal); J30.9 Allergic rhinitis, unspecified; J30.89 Other allergic rhinitis
CPT/HCPCS: 99204

== ENCOUNTER 2025-03-27 15:46 | Outpatient (REF) | payer OTHER, SELFPAY ==
[2025-03-27 16:02] LABS: MANUAL DIFF FLAG NO
[2025-03-27 16:22] LABS: Hematocrit 43.0 % (42.0-52.0); Hemoglobin 13.9 g/dl (14.0-18.0); Imm Gran Abs Auto 0.01 X10*3/uL (0.00-0.03); Imm Gran Pct Auto 0.2 % (0.0-0.4); Lymphocytes Absolute Auto 1.9 X10*3/uL (1.2-4.9); Mean Corpuscular HGB Conc 32.3 g/dl (31.0-36.0); Mean Corpuscular Hemoglobin 26.4 pg (27.0-33.0); Mean Corpuscular Volume 81.6 fL (80.0-98.0); NRBC Abs Auto 0.000 X10*3/uL (0.0-0.012); NRBC Pct Auto 0.0 /100WBC (0.0-0.2); Platelet Count 302 X10*3/uL (160-400); Red Blood Count 5.27 X10*6/uL (4.60-5.80); White Blood Count 5.8 X10*3/uL (4.8-10.8)
== END 2025-03-27 15:47 | disposition home or self-care (01) ==
LOC: HO.LAB 15:46
PROVIDERS: PCP Internal Medicine; Visit Provider Internal Medicine
DX: R06.02 Shortness of breath (principal); J45.909 Unspecified asthma, uncomplicated
CPT/HCPCS: 36415; 82785; 85025; 99202

== ENCOUNTER 2025-05-25 16:02 | Outpatient (AMB) | payer OTHER, SELFPAY ==
[2025-05-25 16:10] VITALS: BP 128/78; PULSE 71; TEMP 36.3; O2SAT 97
--- NOTE | 2025-05-25 16:10 | MHC.PC.OV ---
Vital Signs 05/25/25 16:10 Height 6 ft 9 in Weight 280 lb 2 oz BMI 30.0 BP 128/78 Blood Pressure Location Lt brachial Position Sitting Pulse 71 Pulse Source Pulse Oximeter Temp 97.3 F Temp Source Temporal Artery Scan Pulse Oximetry (%) 97 Oxygen Delivery Method Room Air Intake Visit Reasons: annual pe Allergies caffeine (CAFFEINE) Allergy (Severe, Verified 05/25/25 16:14) INTESTINAL BLEEDING cat dander (cats) Allergy (Intermediate, Verified 05/25/25 16:14) asthma Iodinated Contrast Media Allergy (Intermediate, Verified 05/25/25 16:14) Anaphylaxis milk Allergy (Intermediate, Verified 05/25/25 16:14) Constipation peanut (PEANUT) Allergy (Intermediate, Verified 05/25/25 16:14) Constipation Peanut Butter Flavor Allergy (Intermediate, Verified 05/25/25 16:14) Constipation fish oil (FISH OIL) Allergy (Mild, Verified 05/25/25 16:14) RASH fish derived (fish) Allergy (Unknown, Verified 05/25/25 16:14) Unknown fluoxetine Allergy (Unknown, Verified 05/25/25 16:14) Unknown egg (EGGS) Adverse Reaction (Intermediate, Verified 05/25/25 16:14) Diarrhea sun Allergy (Uncoded 05/25/25 16:14) Rash Medication List - Last Reconciled 05/25/25 by Clau Moseley MD bisacodyl (Dulcolax (bisacodyl)) 20 mg (4 x 5 mg) PO ONCE 1 day polyethylene glycol 3350 (Miralax) 238 grams PO ONCE Tobacco use date assessed: 05/25/25 Dental Screening Dental Screen Date: 05/25/25 Did you have a dental visit in the last 12 months?: Yes Did you have a dental problem in the last 6 months where you did not have access to dental care?: No Was dental information given to patient?: Patient has dentist HPI annual pe HPI Details weak [facility] Medical History (Updated 05/25/25 @ 17:08 by Clau Moseley MD) Rash of both feet Eczema Colon cancer screening Gallstone Environmental and seasonal allergies Diverticulitis Asthma 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 Overweight (BMI 25.0-29.9) Allergic rhinitis Generalized anxiety disorder Chronic low back pain Surgical History (Updated 05/25/25 @ 16:46 by Clau Moseley MD) Recurrent umbilical hernia Recurrent biliary colic Hx of colonoscopy Hx laparoscopic cholecystectomy (09/23/24) History of umbilical hernia repair Family History Father Prostate cancer CVD (cardiovascular disease) Hypertension Mother Ovarian cancer Breast cancer Hypertension Maternal Grandmother Cancer Vulvar cancer Paternal Grandmother Diabetes Paternal Aunt Diabetes Paternal Uncle Diabetes Son Asthma Heart problem Family/Other FH: mental illness Substance abuse Social History (Updated 05/25/25 @ 16:52 by Clau Moseley MD) Housing: Apartment Are you a primary acute care nursing assistant to a significant other at home: No Do you presently have visiting nurse or other home services: No Alcohol intake: current Alcohol intake frequency: a few times a month Comment: Balance issues at times due to lower back pain, 3 x a month 1-2 glasses Patient Tobacco Use Status: Former Tobacco user Tobacco use type: Cigarette Years Smoked: 16, smoking cannabis e-Cigarette/Vaping Use: Never Used Second Hand Smoke Exposure: No Substance Use Type: Marijuana Current occupational status: employed Cognitive needs: No Hearing needs: No Vision needs: Yes Questionnaire PHQ-9 Over the last 2 weeks, how often have you been bothered by any of the following problems? 1. Little interest or pleasure in doing things: more than half the days 2. Feeling down, depressed, or hopeless: more than half the days 3. Trouble falling or staying asleep, or sleeping too much: not at all 4. Feeling tired or having little energy: not at all 5. Poor appetite or overeating: not at all 6. Feeling bad about yourself - or that you are a failure or have let yourself or your family down: not at all 7. Trouble concentrating on things, such as reading the newspaper or watching television: not at all 8. Moving or speaking so slowly that other people could have noticed. Or the opposite - being so fidgety or restless that you have been moving around a lot more than usual: not at all 9. Thoughts that you would be better off or of hurting yourself in some way: not at all Total score: 4 Depression Screening Interpretation: Positive Depression Screening Done: Yes Source: Developed by Drs. Narinder Gorman, Sandra Pereira, Juvencio Kahn and colleagues, with an educational ismael from [employer]. Thrive Questionnaire Date Thrive assessed: 05/25/25 I am a: Patient What is your living situation today?: I have a steady place to live Within the past 12 months, did the food you bought not last and you didn't have the money to get more?: Never true Within the past 12 months, did you worry whether your food would run out before you got money to buy more?: Never true Do you have trouble paying for medicines?: No Do you have trouble getting transportation to medical appointments?: No Do you have trouble paying your heating and electricity bill?: No Do you have trouble taking care of your child, family member or friend?: No Do you have trouble with day-to-day activities such as bathing, preparing meals, shopping, managing finances, etc.?: No Are you currently unemployed and looking for a job?: No Are you interested in more education?: No Please select the resources that you would like help with: None THRIVE Score: 0 AUDIT C Alcohol Use Questionnaire (AUDIT-C) 1. How often do you have a drink containing alcohol?: Monthly or less 2. How many drinks containing alcohol do you have on a typical day when you are drinking?: 1 or 2 3. How often do you have six or more drinks on one occasion?: Never Total Score: 1 KATHY-7 AMB Questionnaire KATHY-7 Date KATHY - 7 assessed: 05/25/25 Feeling nervous, anxious, or on edge: 1 = Several days Not being able to stop or control worryin = Several days Worrying too much about different things: 0 = Not at all Trouble relaxin = Not at all Being so restless that it is hard to sit still: 0 = Not at all Becoming easily annoyed or irritable: 0 = Not at all Feeling afraid as if something awful might happen: 0 = Not at all Total KATHY-7 score (0-4 normal; 5-9 mild; 10-14 moderate; 15-21 severe): 2 Source: Developed by Drs. Narinder Gorman, Sandra Pereira, Juvencio Kahn and colleagues, with an educational ismael from [employer]. Review of Systems Const Denies poor appetite and Denies weakness Eyes Denies no additional complaints ENT Reports Normal hearing present, Denies dizziness, Denies nasal congestion, Denies tinnitus and Denies sore throat Card Denies chest pain, Denies syncope, Denies rapid heart rate and Denies dyspnea Resp Denies cough and Denies dyspnea GI Denies change in stool character, Reports constipation, Denies diarrhea, Denies nausea and Denies vomiting Denies dysuria and Denies urinary frequency Neuro Reports Normal hearing present, Denies confusion, Denies dizziness, Denies syncope and Denies weakness Psych Denies confusion Physical exam (Primary Care) Vital Signs: Last Vital Signs Temp 97.3 F 05/25/25 16:10 Pulse 71 05/25/25 16:10 BP 128/78 05/25/25 16:10 Pulse Ox 97 05/25/25 16:10 Oxygen Delivery Method Room Air 05/25/25 16:10 BMI result Body Mass Index 30.0 Tobacco/Smoking Status: Tobacco use Status Tobacco use date assessed 05/25/25 05/25/25 16:16 Patient Tobacco Use Status Former Tobacco user 05/25/25 16:16 Tobacco use type Cigarette 05/25/25 16:16 e-Cigarette/Vaping Use Never Used 05/25/25 16:16 PHQ-9: PHQ-9 Score PHQ-9: Total score 4 05/25/25 16:16 Depression Screening Interpretation: Positive Thrive Assessment: Date of Thrive Assessment Date Thrive assessed 05/25/25 05/25/25 16:16 Const General: No confusion Orientation/consciousness: No confusion HENMT Head: Yes normocephalic Ears: external ears normal and TM's normal bilaterally Face and sinus: Yes normal facial exam Mouth: moist mucous membranes Throat: Yes tonsils normal Eyes Conjunctivae: conjunctivae normal Pupils: Equal, round and reactive pupils present and Pupil accommodation reflex normal Direct Ophthalmoscopy: normal light reflex Neck Neck: No lymphadenopathy Thyroid: Thyroid normal Chest Chest palpation & inspection: normal inspection of the chest Resp Effort & Inspection: normal respiratory effort and no audible wheezes Auscultation: clear to auscultation bilaterally, no crackles, no wheezes and lung sounds not diminished Cardio Rate: regular rate Rhythm: regular rhythm Peripheral pulses: radial pulses present and dorsalis pedis present GI Palpation (GI): no masses Auscultation: normal bowel sounds and normoactive bowel sounds Rectal Exam - Male: Yes deferred Skin General skin exam: no rashes or lesions noted Rashes: no rashes Neuro General: No confusion Cranial nerves: Yes Equal, round and reactive pupils present and Yes Normal hearing present Cognition (Neuro): normal cognition Gait exam (Neuro): Normal gait present Motor exam (neuro): 5/5 motor strength present throughout Deep tendon reflexes (DTR's): Right brachioradialis reflex intensity grade: 2+, Left brachioradialis reflex intensity grade: 2+, Right patellar reflex intensity grade: 2+ and Left patellar reflex intensity grade: 2+ Extrem General: No edema Coding Level of Care Code Est Pt Prev Care 40-64y(64587) Diagnoses Annual physical exam Z00.00 Asthma J45.909 Chronic low back pain M54.50; G89.29 Anemia D64.9 Obesity (BMI 30.0-34.9) E66.9 Impaired glucose tolerance R73.02 Generalized anxiety disorder F41.1 Eczema L30.9 Numbness of finger R20.0 Assessment & Plan Assessment & Plan (1) Annual physical exam: Code(s): Z00.00 - Encounter for general adult medical examination without abnormal findings Category: Medical Plan: Patient is advised to eat healthy, keep well hydrated, keep active and have adequate sleep. (2) Asthma: Comment: PER PATIENT HE DOES HAVE MILD INTERMITTENT BRONCHIAL ASTHMA, MOSTLY DUE TO ENVIRONMENTAL ALLERGIES. Code(s): J45.909 - Unspecified asthma, uncomplicated Category: Medical Plan: Patient has seen Pulmonary has been given albuterol and was advised to get pulmonary function testing. (3) Chronic low back pain: Comment: MRI 2014 L4-L5 right and L5-S1 left nerve root impingement Code(s): M54.50 - Low back pain, unspecified; G89.29 - Other chronic pain Category: Medical Plan: Keep weight under control, keep active (4) Anemia: Code(s): D64.9 - Anemia, unspecified Category: Medical Plan: Continue to follow-up. Mild (5) Obesity (BMI 30.0-34.9): Code(s): E66.9 - Obesity, unspecified Category: Medical Plan: Diet and exercise (6) Impaired glucose tolerance: Code(s): R73.02 - Impaired glucose tolerance (oral) Category: Medical Plan: Decrease the amount of carbohydrate intake, pasta, bread, rice and potatoes are all sugar and that is aside from all the sweet stuff, remember that fruits are good but they are Sweet also. (7) Generalized anxiety disorder: Code(s): F41.1 - Generalized anxiety disorder Category: Medical Plan: Stable (8) Eczema: Code(s): L30.9 - Dermatitis, unspecified Category: Medical (9) Numbness of finger: Comment: R hand Code(s): R20.0 - Anesthesia of skin Category: Medical Plan History of Present Illness The patient is a 45-year-old male presenting for a physical exam and management of multiple chronic conditions. The patient has a history of obesity, with a recent weight gain of 12 pounds since March. He has chronic low back pain associated with lumbar nerve root impingement, which has been a persistent issue. The patient also reports generalized anxiety disorder, which has been a concern for him. He has impaired glucose tolerance, with a hemoglobin A1c of 6.2 noted in August, indicating a risk for diabetes. The patient underwent a laparoscopic cholecystectomy for cholelithiasis in September. He also has a history of asthma, primarily due to environmental allergies, and uses an albuterol inhaler as needed. The patient experiences bilateral knee pain, more pronounced on the right side, with a diagnosis of arthritis. He was advised to use a knee brace and attend physical therapy. The patient has mild anemia, with a hemoglobin level of 13.9 noted in March. He also reports eczema, which has been persistent despite treatment with triamcinolone cream. Health Maintenance - Advised to maintain a low-fat diet post-cholecystectomy to prevent diarrhea - Recommended weight management and regular physical activity - Advised to monitor blood glucose levels and maintain a healthy diet to prevent diabetes - Encouraged to use moisturizers for eczema management - Discussed the importance of vaccinations, including flu and COVID-19 vaccines Social History - Substance Use: Reports using cannabis twice daily as a mood stabilizer - Alcohol Use: Consumes alcohol three times a month, typically one to two cups per occasion - Smoking History: Quit smoking cigarettes at age 23 - Family History: Father with prostate cancer, mother with breast and ovarian cancer, grandfather with multiple cancers, son with congenital heart condition Review of Systems - General: Reports weight gain of 12 pounds since March - Respiratory: Reports asthma exacerbations, uses albuterol inhaler - Musculoskeletal: Reports bilateral knee pain, right more than left - Dermatological: Reports persistent eczema - Neurological: Reports numbness in fingers, improving - Gastrointestinal: Denies blood in stools, reports oily stools post-cholecystectomy - Cardiovascular: Denies chest pain, reports occasional chest congestion related to allergies Physical Exam General: Cooperative, healthy appearing, comfortable, no acute distress and well developed Orientation: Patient oriented x3 Limitations: No limitations Head: Normal to inspection Ears: Hearing grossly normal bilaterally Nose: Normal external nose present Face and sinus: Normal facial exam Eyes: Appearance normal, both eyes and all related structures Neck: Normal visual inspection and Yes full ROM Respiratory: Normal respiratory effort and able to speak in complete sentences. Clear to auscultation bilaterally Cardiovascular: Regular rate and rhythm. Normal S1 and S2 GI: Normal to inspection. Soft to palpation and nontender Skin: No rashes or lesions noted, but patient reports persistent eczema and rough skin texture Neuro: Patient oriented x3 Extremities: Normal to inspection, but patient reports numbness in right hand fingers after using a drill, improving over time Results - Labs: Hemoglobin A1c of 6.2 in August, indicating impaired glucose tolerance - Labs: Mild anemia with hemoglobin level of 13.9 in March Plan Patient was informed and verbally consented to the use of an ambient scribe for clinic note documentation during this visit. 1. Obesity The patient is advised to engage in regular physical activity and maintain a balanced diet to manage weight gain. Continued monitoring of weight and dietary habits is recommended. 2. Chronic Low Back Pain With Lumbar Nerve Root Impingement The patient is advised to continue with any prescribed physical therapy and pain management strategies. 3. Generalized Anxiety Disorder The patient is encouraged to seek counseling services for anxiety management. 4. Impaired Glucose Tolerance The patient is advised to monitor blood glucose levels and maintain a healthy diet to prevent progression to diabetes. A follow-up blood test is recommended to reassess glucose levels. 5. Cholelithiasis, Status Post Laparoscopic Cholecystectomy The patient is advised to maintain a low-fat diet to prevent gastrointestinal symptoms post-cholecystectomy. 6. Asthma, Primarily Due To Environmental Allergies The patient is advised to use an albuterol inhaler as needed and to avoid known allergens. Pulmonary function testing is recommended to monitor asthma control. 7. Bilateral Knee Pain With Diagnosis Of Arthritis The patient is advised to use a knee brace and attend physical therapy to manage knee pain. 8. Mild Anemia The patient is advised to follow up with blood work to monitor anemia status. 9. Eczema The patient is advised to use moisturizers and prescribed topical steroids for eczema management. Discussion Notes During the visit, I discussed the importance of managing weight through diet and exercise to address obesity and prevent diabetes progression. We reviewed the patient's asthma management plan, emphasizing the use of an albuterol inhaler and the need for pulmonary function testing. I also advised on maintaining a low-fat diet post-cholecystectomy to prevent gastrointestinal symptoms. The patient was encouraged to seek counseling for anxiety management and to continue using moisturizers for eczema care. Patient Instructions - Engage in regular physical activity and maintain a balanced diet to manage weight. - Use albuterol inhaler as needed for asthma and avoid known allergens. - Follow a low-fat diet to prevent gastrointestinal symptoms post-cholecystectomy. - Monitor blood glucose levels and maintain a healthy diet to prevent diabetes. - Use moisturizers and prescribed topical steroids for eczema management. - Seek counseling services for anxiety management. Orders: Orders Free T4 (Free Thyroxine) Today R73.02 - Impaired glucose tolerance (oral) Comprehensive Met. Panel Today R73.02 - Impaired glucose tolerance (oral) Complete Blood Count Auto Diff Today R73.02 - Impaired glucose tolerance (oral) Ferritin Today R73.02 - Impaired glucose tolerance (oral) IRON PROFILE Today R73.02 - Impaired glucose tolerance (oral) Thyroid Stimulating Hormone Today R73.02 - Impaired glucose tolerance (oral) Lipid Panel Today E78.00 - Pure hypercholesterolemia, unspecified, R73.02 - Impaired glucose tolerance (oral) Vitamin B12 and Folate Today R73.02 - Impaired glucose tolerance (oral) Hemoglobin A1c Today R73.02 - Impaired glucose tolerance (oral) Reticulocyte Count Today R73.02 - Impaired glucose tolerance (oral) Referrals Psychiatry Referral F41.1 - Generalized anxiety disorder Medications: New albuterol sulfate 90 mcg/actuation (Proair Digihaler) 2 inhalations inhalation Q4-6H PRN 1 ea 0RF shortness of breath or wheezing triamcinolone acetonide 0.5% 1 appl topical BID 45 grams 0RF R73.02 - Impaired glucose tolerance (oral)
== END 2025-05-25 17:16 | disposition home or self-care (01) ==
LOC: HO.HMCH 16:09
PROVIDERS: PCP Internal Medicine; Visit Provider Internal Medicine
DX: Z00.00 Encounter for general adult medical examination without abnormal findings (principal); J45.909 Unspecified asthma, uncomplicated; E66.9 Obesity, unspecified; Z68.30 Body mass index [BMI] 30.0-30.9, adult; M54.50 Low back pain, unspecified; G89.29 Other chronic pain; D64.9 Anemia, unspecified; R73.02 Impaired glucose tolerance (oral); F41.1 Generalized anxiety disorder; L30.9 Dermatitis, unspecified; R20.0 Anesthesia of skin

== ENCOUNTER → 2025-05-25 16:02 | Outpatient (BNVA) | payer OTHER, SELFPAY | PROVIDERS: PCP Internal Medicine; Visit Provider Internal Medicine | DX: Z00.00 Encounter for general adult medical examination without abnormal findings (principal); J45.909 Unspecified asthma, uncomplicated; M54.50 Low back pain, unspecified; G89.29 Other chronic pain; D64.9 Anemia, unspecified; E66.9 Obesity, unspecified; R73.02 Impaired glucose tolerance (oral); F41.1 Generalized anxiety disorder; L30.9 Dermatitis, unspecified; R20.0 Anesthesia of skin; Z90.89 Acquired absence of other organs; Z13.31 Encounter for screening for depression; Z13.39 Encounter for screening examination for other mental health and behavioral disorders | CPT/HCPCS: 99396 ==

== ENCOUNTER 2025-09-04 11:42 | Outpatient (REF) | payer OTHER, SELFPAY ==
[2025-09-04 11:55] LABS: MANUAL DIFF FLAG NO
[2025-09-04 12:26] LABS: Hematocrit 45.8 % (42.0-52.0); Hemoglobin 14.5 g/dl (14.0-18.0); Imm Gran Abs Auto 0.01 X10*3/uL (0.00-0.03); Imm Gran Pct Auto 0.2 % (0.0-0.4); Lymphocytes Absolute Auto 2.6 X10*3/uL (1.2-4.9); Mean Corpuscular HGB Conc 31.7 g/dl (31.0-36.0); Mean Corpuscular Hemoglobin 26.5 pg (27.0-33.0); Mean Corpuscular Volume 83.6 fL (80.0-98.0); NRBC Abs Auto 0.000 X10*3/uL (0.0-0.012); NRBC Pct Auto 0.0 /100WBC (0.0-0.2); Platelet Count 303 X10*3/uL (160-400); Red Blood Count 5.48 X10*6/uL (4.60-5.80); Reticulocytes Absolute 0.050 X10*6/uL (0.026-0.095); White Blood Count 5.8 X10*3/uL (4.8-10.8)
[2025-09-04 13:24] LABS: Alanine Aminotransferase 35 U/L (0-40); Albumin Level 4.8 g/dL (3.5-5.0); Alkaline Phosphatase 62 U/L (39-117); Anion Gap 11 (12-20); Aspartate Amino Transferase 28 U/L (5-37); Blood Urea Nitrogen 14 mg/dL (9-16); Calcium 9.2 mg/dL (8.4-10.2); Carbon Dioxide 28 mmol/L (22-29); Chloride 108 mmol/L (96-108); Cholesterol 117 mg/dL (<200); Estimated Glomerular Filt Rate > 60; HDL Cholesterol 35 mg/dL (>40); Iron 53 mcg/dL (45-160); Percent Iron Saturation 17 % (15-50); Potassium 4.4 mmol/L (3.3-5.1); Sodium 143 mmol/L (135-145); Total Iron Binding Capacity 305 mcg/dL (228-428); Total Protein 7.6 g/dL (6.5-8.0); Triglycerides 70 mg/dL (<150); Unsaturated Iron Binding 252 ug/dL
[2025-09-04 14:33] LABS: Folate 8.2 ng/mL (> or = 4.0); Vitamin B12 340 pg/mL (200-900)
[2025-09-04 15:19] LABS: Ferritin 205 ng/mL (20-250); Free T4 (Free Thyroxine) 0.96 ng/dL (0.71-1.85); Thyroid Stimulating Hormone 0.96 uIU/mL (0.32-4.0)
== END 2025-09-04 11:43 | disposition home or self-care (01) ==
LOC: HO.LAB 11:42
PROVIDERS: PCP Internal Medicine; Visit Provider Internal Medicine
DX: R73.02 Impaired glucose tolerance (oral) (principal); E78.00 Pure hypercholesterolemia, unspecified; R20.0 Anesthesia of skin; R73.03 Prediabetes; J45.909 Unspecified asthma, uncomplicated; M79.606 Pain in leg, unspecified; E66.9 Obesity, unspecified; D64.9 Anemia, unspecified; G89.29 Other chronic pain; N20.0 Calculus of kidney; M54.16 Radiculopathy, lumbar region; Z79.51 Long term (current) use of inhaled steroids; Z23 Encounter for immunization
CPT/HCPCS: 36415; 80053; 80061; 82607; 82728; 82746; 83036; 83540; 84439; 84443; 85025; 85045; 90471; 90656; 99212

== ENCOUNTER 2025-09-04 12:57 | Outpatient (AMB) | payer OTHER, SELFPAY ==
[2025-09-04 13:50] VITALS: BP 120/80; PULSE 64; O2SAT 95; BMI 29.7
--- NOTE | 2025-09-04 13:50 | MHC.PC.OV ---
Vital Signs 09/04/25 13:50 Height 6 ft 9 in Weight 277 lb BMI 29.7 BP 120/80 Blood Pressure Location Lt brachial Position Sitting Pulse 64 Pulse Source Pulse Oximeter Pulse Oximetry (%) 95 Oxygen Delivery Method Room Air Intake Visit Reasons: IGT Acidizer Helper Required: No Accompanied by: Self / Same As Patient Allergies caffeine (CAFFEINE) Allergy (Severe, Verified 09/04/25 13:51) INTESTINAL BLEEDING cat dander (cats) Allergy (Intermediate, Verified 09/04/25 13:51) asthma Iodinated Contrast Media Allergy (Intermediate, Verified 09/04/25 13:51) Anaphylaxis milk Allergy (Intermediate, Verified 09/04/25 13:51) Constipation peanut (PEANUT) Allergy (Intermediate, Verified 09/04/25 13:51) Constipation Peanut Butter Flavor Allergy (Intermediate, Verified 09/04/25 13:51) Constipation fish oil (FISH OIL) Allergy (Mild, Verified 09/04/25 13:51) RASH fish derived (fish) Allergy (Unknown, Verified 09/04/25 13:51) Unknown fluoxetine Allergy (Unknown, Verified 09/04/25 13:51) Unknown egg (EGGS) Adverse Reaction (Intermediate, Verified 09/04/25 13:51) Diarrhea sun Allergy (Uncoded 09/04/25 13:51) Rash Tobacco use date assessed: 09/04/25 Dental Screening Dental Screen Date: 09/04/25 Did you have a dental visit in the last 12 months?: Yes Did you have a dental problem in the last 6 months where you did not have access to dental care?: No Was dental information given to patient?: Patient has dentist HPI HPI Comments History of Present Illness Details History of Present Illness The patient is a 45 year old male presenting for follow-up on chronic conditions, discussion of recent lab results, new onset leg pain, and hand numbness. 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 He has experienced some weight loss recently. He has a history of prediabetes (impaired glucose tolerance), with a prior hemoglobin A1c of 6.2% that has improved to 6.0% on recent labs. His recent fasting blood sugar was 105 mg/dL. He has made dietary modifications, including eliminating sugary drinks and now only drinks water. The patient has a history of allergies and asthma, for which he uses an albuterol inhaler as needed. He has a cat at home which triggers his allergies, causing eczema on his legs and symptoms of coughing and sneezing. New symptoms include a weird pain in his leg which is tender to touch but without swelling, and numbness in two fingers of his right hand. He also described a localized, non-cardiopulmonary sensation in his chest. For health maintenance, he has a colonoscopy scheduled for September and is up-to-date on his tetanus vaccination. Health Maintenance The patient has a colonoscopy scheduled for September, and the rationale for needing a deliver driver post-sedation was discussed. An influenza vaccine will be administered during today's visit. Social History - Functional Status: The patient's daily activities are limited by chronic low back pain. - He has balance issues and is advised to avoid heavy lifting of more than 25 pounds, limit bending, and requires periodic stretches and movement due to numbness with prolonged sitting or standing. - Diet: The patient reports he now only drinks water and has been avoiding sugar. - Home Environment: He lives with a cat, which is a known trigger for his allergies and eczema. Results - Complete Blood Count: Normal, with no anemia. - Eosinophils: 8.3 (elevated; normal 0-4). - Comprehensive Metabolic Panel: Normal electrolytes and kidney function. - Fasting Blood Sugar: 105 mg/dL (elevated; normal 70-99). - Hemoglobin A1c: 6.0% (improved from 6.2%). - Liver Function Tests: Normal. - Lipid Panel: LDL cholesterol is 68 mg/dL. - Iron: Normal. - Pending labs: Ferritin, B12, folic acid, and thyroid function tests. 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 Overweight (BMI 25.0-29.9) Allergic rhinitis Generalized anxiety disorder Chronic low back pain Surgical History Recurrent umbilical hernia Recurrent biliary colic Hx of colonoscopy Hx laparoscopic cholecystectomy (09/23/24) History of umbilical hernia repair Family History Father Prostate cancer CVD (cardiovascular disease) Hypertension Mother Ovarian cancer Breast cancer Hypertension Maternal Grandmother Cancer Vulvar cancer Paternal Grandmother Diabetes Paternal Aunt Diabetes Paternal Uncle Diabetes Son Asthma Heart problem Family/Other FH: mental illness Substance abuse Social History Housing: Apartment Are you a primary long term care phlebotomist to a significant other at home: No Do you presently have visiting nurse or other home services: No Alcohol intake: current Alcohol intake frequency: a few times a month Comment: Balance issues at times due to lower back pain, 3 x a month 1-2 glasses Patient Tobacco Use Status: Former Tobacco user Tobacco use type: Cigarette Years Smoked: 15, smoking cannabis e-Cigarette/Vaping Use: Never Used Second Hand Smoke Exposure: No Substance Use Type: Marijuana Current occupational status: employed Cognitive needs: No Hearing needs: No Vision needs: Yes Questionnaire PHQ-9 Over the last 2 weeks, how often have you been bothered by any of the following problems? 1. Little interest or pleasure in doing things: more than half the days 2. Feeling down, depressed, or hopeless: more than half the days 3. Trouble falling or staying asleep, or sleeping too much: not at all 4. Feeling tired or having little energy: not at all 5. Poor appetite or overeating: not at all 6. Feeling bad about yourself - or that you are a failure or have let yourself or your family down: not at all 7. Trouble concentrating on things, such as reading the newspaper or watching television: not at all 8. Moving or speaking so slowly that other people could have noticed. Or the opposite - being so fidgety or restless that you have been moving around a lot more than usual: not at all 9. Thoughts that you would be better off or of hurting yourself in some way: not at all Total score: 4 Source: Developed by Drs. Narinder Gorman, Sandra Pereira, Juvencio Kahn and colleagues, with an educational ismael from [employer]. Thrive Questionnaire Date Thrive assessed: 09/04/25 I am a: Patient What is your living situation today?: I have a steady place to live Within the past 12 months, did the food you bought not last and you didn't have the money to get more?: Never true Within the past 12 months, did you worry whether your food would run out before you got money to buy more?: Never true Do you have trouble paying for medicines?: No Do you have trouble getting transportation to medical appointments?: No Do you have trouble paying your heating and electricity bill?: No Do you have trouble taking care of your child, family member or friend?: No Do you have trouble with day-to-day activities such as bathing, preparing meals, shopping, managing finances, etc.?: No Are you currently unemployed and looking for a job?: No Are you interested in more education?: No Please select the resources that you would like help with: None Currently or been in a relationship where the following occur: No concerns reported THRIVE Score: 0 AUDIT C Alcohol Use Questionnaire (AUDIT-C) 1. How often do you have a drink containing alcohol?: Monthly or less 2. How many drinks containing alcohol do you have on a typical day when you are drinking?: 1 or 2 3. How often do you have six or more drinks on one occasion?: Never Total Score: 1 KATHY-7 AMB Questionnaire KATHY-7 Date KATHY - 7 assessed: 09/04/25 Feeling nervous, anxious, or on edge: 1 = Several days Not being able to stop or control worryin = Several days Worrying too much about different things: 0 = Not at all Trouble relaxin = Not at all Being so restless that it is hard to sit still: 0 = Not at all Becoming easily annoyed or irritable: 0 = Not at all Feeling afraid as if something awful might happen: 0 = Not at all Total KATHY-7 score (0-4 normal; 5-9 mild; 10-14 moderate; 15-21 severe): 2 Source: Developed by Drs. Narinder Gorman, Sandra Pereira, Juvencio Kahn and colleagues, with an educational ismael from [employer]. Review of Systems Narrative Review of Systems - Constitutional: Reports weight loss. - Respiratory: Reports cough and sneezing. - Denies significant recent asthma problems. - Musculoskeletal: Reports chronic low back pain. - Reports new onset leg pain, which is tender to touch. - Denies leg swelling. - Neurological: Reports numbness in his right hand fingers. - Reports numbness in his heel, which he relates to his back issues. - Reports balance issues secondary to back pain. - Integumentary: Reports history of eczema on his legs related to cat exposure, which is currently resolved. - Psychiatric: Reports history of generalized anxiety disorder. - He reports a localized sensation on his chest that he feels is similar to anxiety. Physical exam (Primary Care) Vital Signs: Last Vital Signs Pulse 64 09/04/25 13:50 BP 120/80 09/04/25 13:50 Pulse Ox 95 09/04/25 13:50 Oxygen Delivery Method Room Air 09/04/25 13:50 BMI result Body Mass Index 29.7 Tobacco/Smoking Status: Tobacco use Status Tobacco use date assessed 09/04/25 09/04/25 13:56 Patient Tobacco Use Status Former Tobacco user 09/04/25 13:50 Tobacco use type Cigarette 09/04/25 13:50 e-Cigarette/Vaping Use Never Used 09/04/25 13:50 PHQ-9: PHQ-9 Score PHQ-9: Total score 4 09/04/25 14:17 Thrive Assessment: Date of Thrive Assessment Date Thrive assessed 09/04/25 09/04/25 13:56 Currently or been in a relationship where the following occur: No concerns reported Narrative Physical Exam - Musculoskeletal: Palpation of the leg reveals tenderness in a specific muscle area. - No swelling noted in the leg. Const General: alert; No acute distress Eyes Conjunctivae: conjunctivae normal Resp Auscultation: clear to auscultation bilaterally Cardio Rate: regular rate Rhythm: regular rhythm GI Inspection: Yes normal to inspection Extrem General: Yes normal to inspection and No edema Office Procedures Flu Questionnaire Does the patient have a severe egg allergy?: No Does the patient have severe life threatening allergies?: No Does the patient have a fever or illness today?: No Has the patient ever had Guillain-[place] Syndrome?: No Has the patient ever had any past reaction to a flu shot?: No Immunizations Fluarix [id number] (PF) 45 mcg (15 mcg x 3)/0.5 mL IM syringe Performing Provider: Clau Moseley MD Performing Location: [facility] Administered by: RAMANDEEP Andrew on 09/04/25 14:18 Dose Route Admin Location Dispensed Lot Number Expiration Date NDC Lens Mold Setter 0.5 mL IM Left Deltoid 0.5 mL [id number] 03/13/26 04577-144-69 Health Enhancement Products VIS Given Date VIS Provided VIS Publication Date 09/04/25 Single Vaccine 24 Eligibility Eligibility Date Funding Source Not [facility] Eligible 09/04/25 Private Coding Level of Care Code Est Pt Level 4 (06196) Add On Problem Visit Only Diagnoses Impaired glucose tolerance R73.02 Obesity (BMI 30.0-34.9) E66.9 Allergic rhinitis J30.9 Anemia D64.9 Chronic low back pain M54.50; G89.29 Asthma J45.909 Numbness of finger R20.0 Assessment & Plan Assessment & Plan (1) Impaired glucose tolerance: Code(s): R73.02 - Impaired glucose tolerance (oral) Category: Medical Plan: Decrease the amount of carbohydrate intake, pasta, bread, rice and potatoes are all sugar and that is aside from all the sweet stuff, remember that fruits are good but they are Sweet also. (2) Obesity (BMI 30.0-34.9): Code(s): E66.9 - Obesity, unspecified Category: Medical Plan: Diet and exercise (3) Allergic rhinitis: Comment: MILD INTERMITTENT NASAL CONGESTION ALSO DUE TO ENVIRONMENTAL ALLERGIES. Code(s): J30.9 - Allergic rhinitis, unspecified Category: Medical Plan: Discussed about allergy medication (4) Anemia: Code(s): D64.9 - Anemia, unspecified Category: Medical Plan: Resolved (5) Chronic low back pain: Comment: MRI 2014 L4-L5 right and L5-S1 left nerve root impingement Code(s): M54.50 - Low back pain, unspecified; G89.29 - Other chronic pain Category: Medical Plan: Keep active. avoid heavy lifting > 25 lbs and allowing periodic stretches and limited bending , (6) Asthma: Comment: PER PATIENT HE DOES HAVE MILD INTERMITTENT BRONCHIAL ASTHMA, MOSTLY DUE TO ENVIRONMENTAL ALLERGIES. Code(s): J45.909 - Unspecified asthma, uncomplicated Category: Medical Plan: Continue with albuterol inhaler as needed (7) Numbness of finger: Comment: R hand Code(s): R20.0 - Anesthesia of skin Category: Medical Plan Plan Patient was informed and verbally consented to the use of an ambient scribe for clinic note documentation during this visit. 1. Chronic Low Back Pain With Radiculopathy The patient reports ongoing limitations due to chronic lower back pain with nerve impingement, including balance issues and numbness with prolonged sitting or standing. A letter detailing physical limitations will be provided upon request, advising limited bending, avoidance of heavy lifting over 25 pounds, and allowing for intermittent stretches and position changes. 2. Prediabetes Recent labs show improvement in glycemic control, with HbA1c down to 6.0% from 6.2%, though fasting glucose remains slightly elevated at 105 mg/dL. The patient's dietary changes, such as eliminating sugary drinks, were acknowledged and encouraged. Continue with current diet and exercise plan to prevent progression to overt diabetes. 3. Allergic Rhinitis And Asthma The patient's significant eosinophilia (8.3) confirms a strong allergic component to his symptoms of coughing and sneezing. He was advised to try [id number] allergy medications for symptom control. He should continue using his albuterol inhaler as needed for asthma symptoms and attempt to avoid triggers, such as the cat that also causes his contact dermatitis. 4. Right Hand Numbness, Suspected Carpal Tunnel Syndrome The patient reports numbness in his right hand fingers. Given the distribution, carpal tunnel syndrome is suspected. A nerve test will be ordered to confirm the diagnosis. Discussion Notes I reviewed the patient's recent lab results with him. I noted his blood count was good and he is not anemic. I explained that his elevated eosinophil count of 8.3 indicates a significant allergy component, likely causing his cough and sneezing, and recommended [id number] allergy medication. I informed him that while his fasting blood sugar remains slightly elevated at 105 mg/dL, his hemoglobin A1c has improved to 6.0%, and his LDL cholesterol is well-controlled at 68 mg/dL. I also informed him that several lab tests, including thyroid studies and B12 level, are still pending. We discussed his new leg pain, which I believe is muscular given the localized tenderness without swelling. For the numbness in his right hand, I explained it is suggestive of carpal tunnel syndrome and that a nerve test would be ordered for confirmation. We confirmed his plan for a colonoscopy in September and I clarified that the need for a deliver driver is due to the lingering effects of sedation. The patient consented to receive an influenza vaccine today. I will provide him with a letter detailing physical work restrictions related to his chronic back pain, including limited bending, no heavy lifting over 25 lbs, and the need for periodic position changes. Patient Instructions - Try an [id number] allergy medication for your cough and sneezing. - Let us know if your symptoms do not improve. - Continue to use your albuterol inhaler only when you need it for asthma symptoms. - Continue your diet and exercise plan. - Your efforts to avoid sugar are helping to control your blood sugar, and it is important to continue to prevent diabetes. - We will schedule a nerve test for your hand to check for the cause of your numbness. - You will receive your flu shot in the office today. - Remember to follow the instructions for your colonoscopy in September. - You must have someone to drive you home after the procedure. - Due to your back pain, please follow these restrictions: avoid lifting anything heavier than 25 pounds, limit bending over, and change your position often by standing up from sitting or sitting down from standing. Orders: Orders NE electromyogram (EMG) Today R20.0 - Anesthesia of skin NE nerve conduction velocity Today R20.0 - Anesthesia of skin Influenza [id number] Immunization Today Z23 - Encounter for immunization
== END 2025-09-04 14:28 | disposition home or self-care (01) ==
LOC: HO.HMCH 12:58
PROVIDERS: PCP Internal Medicine; Visit Provider Internal Medicine
DX: R73.02 Impaired glucose tolerance (oral) (principal); J30.9 Allergic rhinitis, unspecified; D64.9 Anemia, unspecified; M54.50 Low back pain, unspecified; G89.29 Other chronic pain; J45.909 Unspecified asthma, uncomplicated; R20.0 Anesthesia of skin; Z23 Encounter for immunization